=== PATIENT | male | born 1930 | race African-American/Black ===

== ENCOUNTER → 2019-11-01 | Outpatient (CLI) | payer MEDICARE ==
[2016-01-03 16:30] VITALS: BP 149/71
[~2019-11-01] MED LIST: ACET500T68 PO; AMIO200T4 PO; ASPI-482 PO; ATOR20TA58 PO; BRIM5DRO3 EACHEYE; CARV25TA PO; DILT180C29 PO; DOXA4TAB2 PO; ESOM40CA PO; FESO4TAB PO; FURO-68 PO; HYDR-2145 PO; LATA2.5D3 EACHEYE; LOSA100T14 PO; NITR0.4T22 SL; POTA20TA12 PO; TIMO5DRO26 OP
[2019-11-01 09:05] LABS: BASO # 0.1 x10^3/uL (0.0-0.2); BASO % 1 % (0-3); EOS # 0.2 x10^3/uL (0.0-0.7); EOS % 3 % (0-3); HEMATOCRIT 34.4 % (39.0-53.0); HEMOGLOBIN 11.5 g/dL (13.0-17.5); LYMPH # 1.4 x10^3/uL (1.0-4.8); LYMPH % 23 % (24-48); MEAN CORPUSCULAR HEMOGLOBIN 32 pg (25-35); MEAN CORPUSCULAR HGB CONC 34 g/dL (31-37); MEAN CORPUSCULAR VOLUME 94 fL (79-100); MONO # 0.6 x10^3/uL (0.0-1.1); MONO % 11 % (0-9); NEUT # 3.6 x10^3/uL (1.8-7.7); NEUT % 62 % (31-73); PLATELET COUNT 154 x10^3/uL (140-400); RED BLOOD COUNT 3.65 x10^6/uL (4.30-5.70); RED CELL DISTRIBUTION WIDTH 14.9 % (11.5-14.5); WHITE BLOOD COUNT 5.9 x10^3/uL (4.0-11.0)
[2019-11-01 09:23] LABS: ALBUMIN 2.9 g/dL (3.4-5.0); ALBUMIN/GLOBULIN RATIO 0.9 (1.0-1.7); CALCIUM 8.7 mg/dL (8.5-10.1); CREATININE 1.8 mg/dL (0.7-1.3); GFR 43.4; MAGNESIUM 2.4 mg/dL (1.8-2.4); PHOSPHORUS 3.6 mg/dL (2.6-4.7); POTASSIUM 4.3 mmol/L (3.5-5.1); TOTAL BILIRUBIN 0.4 mg/dL (0.2-1.0)
[2019-11-01 09:26] LABS: CHOLESTEROL/HDL RATIO 2.3
== END | disposition home or self-care (01) ==
LOC: SPEC 08:54
PROVIDERS: ATTEND Internal Medicine
DX: F25.1 Schizoaffective disorder, depressive type (principal); E78.5 Hyperlipidemia, unspecified
CPT/HCPCS: 36415; 80053; 80061; 83735; 83880; 84100; 85025

== ENCOUNTER 2021-05-25 21:48 | Inpatient (IN) | payer MEDICARE ==
[~2021-05-25] VITALS: Ht 165.1 cm; Wt 74.5 kg
[~2021-05-25 21:48] MED LIST changes: -AMIO200T4 PO; +AMIO200T53 PO
[2021-05-25 22:00] VITALS: BP 100/61
[2021-05-26] MEDS ORDERED: SPIR25TA5 PO (01:14)
[2021-05-26] MEDS ORDERED: APIX2.5T PO (01:14)
[2021-05-26] MEDS ORDERED: PANT40TA77 PO (01:14)
[2021-05-26] MEDS ORDERED: HYDR-2868 PO (01:14)
[2021-05-26] MEDS ORDERED: LEVE750T23 PO (01:14)
[2021-05-26 03:00] VITALS: BP 115/49
[2021-05-26 07:00] VITALS: BP 127/53
--- NOTE | 2021-05-26 08:03 | PDOC1 ---
History and Physical Date of Service: DOS: DATE: 05/26/21 TIME: 08:02 Chief Complaint: Chief Complain: Generalized weakness History of Present Illness: HPI: Most of the history was obtained from discussion with the due to the patient's limited history because of dementia: 89-year-old male with past medical history of atrial fibrillation, hypertension, GERD, AICD placement, CHF, aortic valve stenosis, CAD, osteoarthritis, anemia who was brought in from [facility] due to worsening generalized weakness. reports that the patient has not been seen by For a long time and she states she cannot take care of him anymore. Most of the events that led up to this point actually started around November 2020 where patient had to remain isolated at home and the was the only one taking care of him. He did have a fall episode where he was required to go to for evaluation. He was subsequently d ischarged from to [facility] for rehab and then he was sent home afterwards. Because the was not able to take care of him, she was able to use his VA benefits to send him to [facility]. According to the , she states that they did not do much rehab with him and the patient was quarantined for 2 weeks and no room without much interaction. She is quite upset about this and her respite care days ran out and she had to take him home on May 15. presents the patient to [facility] in hopes to have psychotherapist social worker find placement for the patient to help the for taking care of him. According to the , before November patient was able to ambulate with a walker on his own and go to the kitchen and grab his own self some food and then sit back down. Other than that the patient is unable to make phone calls or do accounting or cook for himself or clean himself. Upon my interview with the patient, patient still thinks he is at [facility] but he is pleasantly confused and is able to answer appropriately questions for immediate basic needs. Past Medical/Surgical History: PMH/PSH: PMHx: atrial fibrillation, hypertension, GERD, AICD placement, CHF, aortic valve stenosis, CAD, osteoarthritis, anemia Allergies: Allergies: Coded Allergies: oxycodone (Verified Allergy, Intermediate, 06/16/15) Family History: Family History: Reviewed with no relevant findings Social History: Social History: No alcohol, drug or tobacco abuse Current Medications: Current Medications Active Scripts Active Reported Spironolactone 25 Mg Tablet 25 Mg PO DAILY Pantoprazole Sodium (Pantoprazole Sodium) 40 Mg Tablet.dr 40 Mg PO DAILYAC Levetiracetam 750 Mg Tab.er.24h 750 Mg PO DAILY Hydralazine Hcl 25 Mg Tablet 25 Mg PO DAILY Eliquis (Apixaban) 2.5 Mg Tablet 2.5 Mg PO HS Diltiazem 24HR Cd (Diltiazem Hcl) 180 Mg Cap.er.24h 180 Mg PO DAILY Losartan Potassium 100 Mg Tablet 100 Mg PO DAILY Betimol (Timolol) 5 Ml Drops 5 Ml OP BID LAST DOSE: 09/02/15 AM NEXT DOSE: 09/02/15 PM Potassium Chloride 20 Meq Tab.er.prt 2 Tab PO DAILYWBKFT LAST DOSE: 09/02/15 BREAKFAST NEXT DOSE: 09/03/15 BREAKFAST NITROGLYCERIN SubLingual (Nitroglycerin) 0.4 Mg Tab.subl 1 Tab SL UD Latanoprost 2.5 Ml Drops 1 Drop EACHEYE QHS LAST DOSE: 09/01/15 BEDTIME NEXT DOSE: 09/02/15 BEDTIME Lasix (Furosemide) 40 Mg Tablet 1 Tab PO DAILY LAST DOSE: 09/02/15 AM NEXT DOSE: 09/03/15 AM Toviaz (Fesoterodine Fumarate) 4 Mg Tab.er.24h 1 Tab PO DAILY NEXT DOSE: 09/03/15 AM Nexium Capsule (Esomeprazole Magnesium) 40 Mg Capsule.dr 1 Cap PO DAILY LAST DOSE: 09/02/15 AM NEXT DOSE: 09/03/15 AM Cardura (Doxazosin Mesylate) 4 Mg Tablet 1 Tab PO HS LAST DOSE: 09/01/15 BEDTIME NEXT DOSE: 09/02/15 BEDTIME Coreg (Carvedilol) 25 Mg Tablet 1 Tab PO BID LAST DOSE: 09/02/15 AM NEXT DOSE: 09/02/15 PM Alphagan P (Brimonidine Tartrate) 5 Ml Drops 1 Drop EACHEYE BID LAST DOSE: 09/02/15 AM NEXT DOSE: 09/02/15 PM Atorvastatin Calcium 20 Mg Tablet 20 Mg PO HS LAST DOSE: 09/01/15 BEDTIME NEXT DOSE: 09/02/15 BEDTIME Aspir 81 (Aspirin) 81 Mg Tablet. 1 Tab PO DAILY LAST DOSE: 09/02/15 AM NEXT DOSE: 09/03/15 AM Amiodarone Hcl 200 Mg Tablet 100 Tab PO DAILY LAST DOSE: 09/02/15 AM NEXT DOSE: 09/03/15 AM Acetaminophen 500 Mg Tablet 2 Tab PO BID LAST DOSE: 09/02/15 AM NEXT DOSE: 09/02/15 PM ROS: Review of Systems Review of System REVIEW OF SYSTEMS: GENERAL: Denies weakness SKIN: No bruising, hair changes or rashes. EYES: No blurred, double or loss of vision. NOSE AND THROAT: No history of nosebleeds, hoarseness or sore throat. HEART: No history of palpitations, chest pain or shortness of breath on exertion. LUNGS: Denies cough, hemoptysis, wheezing or shortness of breath. GASTROINTESTINAL: Denies changes in appetite, nausea, vomiting, diarrhea or constipation. GENITOURINARY: No history of frequency, urgency, hesitancy or nocturia. NEUROLOGIC: Denies history of numbness, tingling, or tremor. PSYCHIATRIC: No history of panic, anxiety or depression. ENDOCRINE: No history of heat or cold intolerance, polyuria or polydipsia. EXTREMITIES: Denies joint pain, pain on walking or stiffness. Physical Exam: Vital Signs: Vital Signs Date Time Temp Pulse Resp B/P (MAP) Pulse Ox O2 Delivery O2 Flow Rate FiO2 05/26/21 03:00 97.8 70 16 115/49 (71) 98 97.8 Physcial Exam: General: Well developed, well nourished, no acute distress, well appearing HEENT: Pupils equally round and reactive to light, EOMI, no discharge, normal conjunctiva Neck: Supple, no nuchal rigidity, no JVD, trachea midline, no tenderness Cardiac: RRR, no murmurs, no gallops, no rubs Chest/Lungs: CTAB, no wheeze, no rhonchi, no crackles Abdomen: soft, non-distended, no guarding, no peritoneal signs, non-tender Back: Sacral decubitus ulcer Extremities: no edema, pulses intact, non-tender,capillary refill <3 sec bilateral upper and lower extremities, bilateral heel ulcers. Neuro: Alert and oriented x 4, no focal deficits, normal speech Labs: Labs: Laboratory Tests Test 05/26/21 07:39 Glucose (Fingerstick) 100 mg/dL (70-99) Laboratory Tests Test 05/26/21 07:39 Glucose (Fingerstick) 100 mg/dL (70-99) Images: Images No recent images to review Assessment/Plan Assessment/Plan Generalized weakness Sacral decubitus ulcers Bilateral heel ulcers Caregiver burden Anemia of chronic disease Severe protein malnutrition Dementia History of atrial fibrillation History of hypertension History of CHF History of CAD History of osteoarthritis History of seizure activity Admit to hospitalist service for further management Wound care consult for ulcers Resume home cardiac medications PT OT Orthostatic vital signs Eliquis for DVT prophylaxis Protonix GI prophylaxis ADA diet CODE STATUS full Discussed with RN and SW Disposition inpatient management as above DPOA: In addition to my E/M visit, advance care planning done with A total time of 20 minutes was spent from 10:00 to 1020 face to face in discussion with the patient and family regarding their goals of care, CODE STATUS. Justifications for Admission Other Justification ACACIA MORA MD May 26, 2021 08:03
[2021-05-26 11:00] VITALS: BP 122/46
--- NOTE | 2021-05-26 11:09 | NUR ---
SW following. Discussed with RN, pt from home with , room air, ada diet. Pt uses a wheelchair. PT/OT ordered. Wound care consulted. RN advised no SW needs at this time. SW will continue to follow.
[2021-05-26] MEDS ORDERED: ZOLPIDEM 5 MG TABLET. PO PRN (12:30)
[2021-05-26] MEDS ORDERED: ONDANSETRON PF 4 MG/2 ML VIAL. IVP PRN (12:30)
[2021-05-26] MEDS ORDERED: oxyCODONE/APAP 5/325 1 TAB TABLET PO PRN (12:30)
[2021-05-26] MEDS ORDERED: PROCHLORPERAZINE 10 MG/2 ML VIAL. IV PRN (12:30)
[2021-05-26] MEDS ORDERED: DEXTROSE 50% 25 GM / 50ML DISP.SYRIN. IV PRN (12:30)
[2021-05-26] MEDS ORDERED: DOCUSATE SODIUM 100 MG CAPSULE. PO PRN (12:30)
[2021-05-26] MEDS ORDERED: SENNOSIDES 8.6 MG TABLET PO PRN (12:30)
[2021-05-26 13:39] LABS: BASO # 0.1 x10^3/uL (0.0-0.2); BASO % 1 % (0-3); EOS # 0.1 x10^3/uL (0.0-0.7); EOS % 1 % (0-3); HEMATOCRIT 26.5 % (39.0-53.0); HEMOGLOBIN 8.7 g/dL (13.0-17.5); LYMPH # 1.4 x10^3/uL (1.0-4.8); LYMPH % 16 % (24-48); MEAN CORPUSCULAR HEMOGLOBIN 29 pg (25-35); MEAN CORPUSCULAR HGB CONC 33 g/dL (31-37); MEAN CORPUSCULAR VOLUME 89 fL (79-100); MONO # 1.1 x10^3/uL (0.0-1.1); MONO % 13 % (0-9); NEUT # 5.8 x10^3/uL (1.8-7.7); NEUT % 69 % (31-73); PLATELET COUNT 253 x10^3/uL (140-400); RED BLOOD COUNT 2.99 x10^6/uL (4.30-5.70); RED CELL DISTRIBUTION WIDTH 18.9 % (11.5-14.5); WHITE BLOOD COUNT 8.4 x10^3/uL (4.0-11.0)
[2021-05-26 14:05] LABS: ALBUMIN 1.7 g/dL (3.4-5.0); ALBUMIN/GLOBULIN RATIO 0.4 (1.0-1.7); CALCIUM 8.6 mg/dL (8.5-10.1); CREATININE 1.1 mg/dL (0.7-1.3); GFR 76.4; MAGNESIUM 2.2 mg/dL (1.8-2.4); POTASSIUM 4.2 mmol/L (3.5-5.1); TOTAL BILIRUBIN 0.3 mg/dL (0.2-1.0); TOTAL PROTEIN 6.5 g/dL (6.4-8.2)
[2021-05-26] MEDS: AMIODARONE HCL 200 MG TABLET. PO SCH (14:44)
[2021-05-26] MEDS: ASPIRIN ENTERIC COATED 81 MG TABLET.DR. PO SCH (14:44)
[2021-05-26] MEDS: ACETAMINOPHEN 325 MG TABLET. PO PRN (14:45)
[2021-05-26 15:00] VITALS: BP 129/52
--- NOTE | 2021-05-26 15:25 | NUR ---
Wound/Ostomy Care Wound Type/Assessment: Wound care consult for multiple wound to bilateral feet and sacrum. pt has DTI with open area to sacrum, DFU's to left plantar foot, Left heel and right lateral ankle. Right lateral ankle is very close to bone and left heel is crusty unstable eschar with slough. Will consult Ana Nieto APRN for bedside debridement. Treatment Recommendations/Plan: Sacrum- xeroform and foam every 3 days and PRN Left plantar foot- skin prep and foam change 2x weekly Right lateral ankle- iodoflex and foam, change very 3 days. Left heel- apply medihoney, xeroform and foam. Change every 3 days and PRN Education provided: Pt educated on PU prevention and WC POC. Offloading surface/device: pt stated he does not like heel medix boots but he understands they are to help him prevent further pressure to wound on feet. Pt turned to left side with wedge and heel floated. Will order heel medix boots and P500 bed. Recommended Referrals/Tests: patient may need bilateral arterial doppler, recommend consult for Ana GILLIS APRN Discharge Recommendations for dressings: see above Addendum: 05/26/21 at 1630 by STACEY ALMANZAR RN [employer] Right: 0.82, left: 0.84
[2021-05-26] MEDS: PANTOPRAZOLE 40 MG TABLET.DR. PO SCH ×2 (16:30→18:01)
[2021-05-26] MEDS: INSULIN LISPRO 300 UNITS/3 ML VIAL. SQ SCH (17:00)
[2021-05-26] MEDS: CARVEDILOL 12.5 MG TABLET. PO SCH (18:02)
[2021-05-26 19:00] VITALS: BP 124/58
[2021-05-26] MEDS: LATANOPROST 0.005% OPHTH SOLUTION 2.5ML BOTTLE. OU SCH (20:36)
[2021-05-26] MEDS: ATORVASTATIN CALCIUM 20 MG TABLET PO SCH (20:37)
[2021-05-26] MEDS: APIXABAN 2.5 MG TABLET. PO SCH (20:37)
[2021-05-26] MEDS: TIMOLOL 0.5% OPHTH SOLUTION 5ML BOTTLE. OD SCH (20:37)
[2021-05-26] MEDS: levETIRAcetam 500 MG/5 ML ORAL SOLUTION. PO SCH (20:37)
[2021-05-26] MEDS: BRIMONIDINE 0.2% OPHTH SOLUTION 5ML BOTTLE. OU SCH (20:37)
[2021-05-26 23:00] VITALS: BP 108/44
--- NOTE | 2021-05-26 23:30 | RAD ---
Bilateral lower extremity arterial Doppler dated 05/26/2021. No comparison available. CLINICAL INDICATION: Nonhealing wounds bilateral foot. FINDINGS: Grayscale, color-flow and spectral waveform analysis was performed. Diffuse luminal irregularity bila teral consistent with atherosclerotic plaquing. On the right, there is biphasic flow within the common femoral artery with systolic velocity of 130 c c and/S. There is also high velocity flow within the profundus femoris on the right measuring 319 cm/ S. Flow within the superficial femoral artery is monophasic throughout and is of somewhat low velocit y. There is echogenic plaque throughout. There is also low velocity monophasic flow within the poplit eal artery and arteries of right calf. On the left, there is biphasic flow within the common femoral artery with velocity of 113 cm/S. There is mild elevated velocity the profundus femoris measuring 175 cm/S. Monophasic flow within the super ficial femoral artery with diminished velocities. There is also monophasic flow within the popliteal artery and arteries of left calf. IMPRESSION: 1. Monophasic flow bilaterally which likely related to diffuse disease and/or inflow disease at the d istal aorta or aortic bifurcation. 2. There is focal velocity elevation of the bilateral profundus femoris, right greater than left sugg esting moderate grade narrowing. 3. Otherwise no focal stenosis visualized. If indicated, CTA could better evaluate. Electronically signed by: Davey Del Angel MD (05/26/2021 11:27 PM) [facility]
[2021-05-27 03:00] VITALS: BP 116/56
[2021-05-27 07:00] VITALS: BP 124/56
[2021-05-27 07:25] LABS: BASO % 1 % (0-3); EOS # 0.1 x10^3/uL (0.0-0.7); EOS % 1 % (0-3); HEMATOCRIT 27.7 % (39.0-53.0); HEMOGLOBIN 8.8 g/dL (13.0-17.5); LYMPH # 1.1 x10^3/uL (1.0-4.8); LYMPH % 15 % (24-48); MEAN CORPUSCULAR HEMOGLOBIN 29 pg (25-35); MEAN CORPUSCULAR HGB CONC 32 g/dL (31-37); MEAN CORPUSCULAR VOLUME 90 fL (79-100); MONO # 0.9 x10^3/uL (0.0-1.1); MONO % 13 % (0-9); NEUT # 5.1 x10^3/uL (1.8-7.7); NEUT % 71 % (31-73); PLATELET COUNT 245 x10^3/uL (140-400); RED BLOOD COUNT 3.08 x10^6/uL (4.30-5.70); RED CELL DISTRIBUTION WIDTH 18.9 % (11.5-14.5); WHITE BLOOD COUNT 7.3 x10^3/uL (4.0-11.0)
[2021-05-27] MEDS: INSULIN LISPRO 300 UNITS/3 ML VIAL. SQ SCH ×3 (08:00→17:00)
[2021-05-27 08:35] LABS: CALCIUM 8.5 mg/dL (8.5-10.1); GFR 85.3; MAGNESIUM 2.2 mg/dL (1.8-2.4); PHOSPHORUS 2.7 mg/dL (2.6-4.7)
[2021-05-27] MEDS: TIMOLOL 0.5% OPHTH SOLUTION 5ML BOTTLE. OD SCH ×2 (09:00→21:21)
[2021-05-27] MEDS: BRIMONIDINE 0.2% OPHTH SOLUTION 5ML BOTTLE. OU SCH ×2 (09:00→21:22)
--- NOTE | 2021-05-27 09:15 | PDOC ---
[employer] PROGRESS NOTE Date of Service DOS: DATE: 05/27/21 TIME: 09:09 Chief Complaint Chief Complaint Assessment/Plan Generalized weakness Sacral decubitus ulcers Bilateral heel ulcers Caregiver burden Anemia of chronic disease Severe protein malnutrition Dementia History of atrial fibrillation History of hypertension History of CHF History of CAD History of osteoarthritis History of seizure activity Continue heel offloading and heel boots Wound care consult for ulcers Resume home cardiac medications PT OT Orthostatic vital signs Eliquis for DVT prophylaxis Protonix GI prophylaxis ADA diet CODE STATUS full Discussed with RN and SW Disposition inpatient management as above DPOA: History of Present Illness History of Present Illness 89-year-old male with past medical history of atrial fibrillation, hypertension, GERD, AICD placement, CHF, aortic valve stenosis, CAD, osteoarthritis, anemia wh o was brought in from [facility] due to worsening generalized weakness. reports that the patient has not been seen by For a long time and she states she cannot take care of him anymore. Most of the events that led up to this point actually started around November 2020 where patient had to remain isolated at home and the was the only one taking care of him. He did have a fall episode where he was required to go to for evaluation. He was subsequently discharged from to [facility] for rehab and then he was sent home afterwards. Because the was not able to take care of him, she was able to use his VA benefits to send him to [facility]. According to the , she states that they did not do much rehab with him and the patient was quarantined for 2 weeks and no room without much interaction. She is quite upset about this and her respite care days ran out and she had to take him home on May 15. presents the patient to [facility] in hopes to have social media marketer find placement for the patient to help the for taking care of him. According to the , before November patient was able to ambulate with a walker on his own and go to the kitchen and grab his own self some food and then sit back down. Other than that the patient is unable to make phone calls or do accounting or cook for himself or clean himself. Upon my interview with the patient, patient still thinks he is at [facility] but he is pleasantly confused and is able to answer appropriately questions for immediate basic needs. 05/27/2021 No acute events overnight. Afebrile. Patient seen and examined bedside. No complaints at this time. Duplex ultrasound of the lower extremities completed showing monophasic flow and possibly some narrowing. Will defer to wound care for consulting vascular surgery at this time. Patient's chart, labs, images were reviewed and discussed with RN Vitals/I&O Vitals/I&O: Vital Signs Date Time Temp Pulse Resp B/P (MAP) Pulse Ox O2 Delivery O2 Flow Rate FiO2 05/27/21 07:00 97.9 70 18 124/56 (78) 98 Room Air 97.9 I & O 05/26/21 05/26/21 05/27/21 15:00 23:00 07:00 Intake Total 200 ml Balance 200 ml Physical Exam General: Alert, Cooperative Heart: Regular rate Lungs: Clear Abdomen: No tenderness Extremities: No edema, Other (Bilateral heel and ankle ulcerations. Heel boots in place.) Labs Labs: Laboratory Tests Test 05/26/21 11:09 05/26/21 13:05 05/26/21 13:15 05/26/21 16:35 Glucose (Fingerstick) 96 mg/dL (70-99) 115 mg/dL (70-99) Sodium Level 139 mmol/L (136-145) Potassium Level 4.2 mmol/L (3.5-5.1) Chloride Level 103 mmol/L (98-107) Carbon Dioxide Level 31 mmol/L (21-32) Anion Gap 5 (6-14) Blood Urea Nitrogen 43 mg/dL (8-26) Creatinine 1.1 mg/dL (0.7-1.3) Estimated GFR (Cockcroft-Gault) 76.4 BUN/Creatinine Ratio 39 (6-20) Glucose Level 93 mg/dL (70-99) Calcium Level 8.6 mg/dL (8.5-10.1) Phosphorus Level 2.0 mg/dL (2.6-4.7) Magnesium Level 2.2 mg/dL (1.8-2.4) Total Bilirubin 0.3 mg/dL (0.2-1.0) Aspartate Amino Transf (AST/SGOT) 28 U/L (15-37) Alanine Aminotransferase (ALT/SGPT) 29 U/L (16-63) Alkaline Phosphatase 73 U/L (46-116) Troponin I Quantitative 0.030 ng/mL (0.000-0.055) Total Protein 6.5 g/dL (6.4-8.2) Albumin 1.7 g/dL (3.4-5.0) Albumin/Globulin Ratio 0.4 (1.0-1.7) Vitamin B12 Level 624 pg/mL (247-911) White Blood Count 8.4 x10^3/uL (4.0-11.0) Red Blood Count 2.99 x10^6/uL (4.30-5.70) Hemoglobin 8.7 g/dL (13.0-17.5) Hematocrit 26.5 % (39.0-53.0) Mean Corpuscular Volume 89 fL (79-100) Mean Corpuscular Hemoglobin 29 pg (25-35) Mean Corpuscular Hemoglobin Concent 33 g/dL (31-37) Red Cell Distribution Width 18.9 % (11.5-14.5) Platelet Count 253 x10^3/uL (140-400) Neutrophils (%) (Auto) 69 % (31-73) Lymphocytes (%) (Auto) 16 % (24-48) Monocytes (%) (Auto) 13 % (0-9) Eosinophils (%) (Auto) 1 % (0-3) Basophils (%) (Auto) 1 % (0-3) Neutrophils # (Auto) 5.8 x10^3/uL (1.8-7.7) Lymphocytes # (Auto) 1.4 x10^3/uL (1.0-4.8) Monocytes # (Auto) 1.1 x10^3/uL (0.0-1.1) Eosinophils # (Auto) 0.1 x10^3/uL (0.0-0.7) Basophils # (Auto) 0.1 x10^3/uL (0.0-0.2) Test 05/26/21 20:28 05/27/21 06:20 05/27/21 07:38 Glucose (Fingerstick) 90 mg/dL (70-99) 88 mg/dL (70-99) White Blood Count 7.3 x10^3/uL (4.0-11.0) Red Blood Count 3.08 x10^6/uL (4.30-5.70) Hemoglobin 8.8 g/dL (13.0-17.5) Hematocrit 27.7 % (39.0-53.0) Mean Corpuscular Volume 90 fL (79-100) Mean Corpuscular Hemoglobin 29 pg (25-35) Mean Corpuscular Hemoglobin Concent 32 g/dL (31-37) Red Cell Distribution Width 18.9 % (11.5-14.5) Platelet Count 245 x10^3/uL (140-400) Neutrophils (%) (Auto) 71 % (31-73) Lymphocytes (%) (Auto) 15 % (24-48) Monocytes (%) (Auto) 13 % (0-9) Eosinophils (%) (Auto) 1 % (0-3) Basophils (%) (Auto) 1 % (0-3) Neutrophils # (Auto) 5.1 x10^3/uL (1.8-7.7) Lymphocytes # (Auto) 1.1 x10^3/uL (1.0-4.8) Monocytes # (Auto) 0.9 x10^3/uL (0.0-1.1) Eosinophils # (Auto) 0.1 x10^3/uL (0.0-0.7) Basophils # (Auto) 0.0 x10^3/uL (0.0-0.2) Sodium Level 139 mmol/L (136-145) Potassium Level 4.0 mmol/L (3.5-5.1) Chloride Level 104 mmol/L (98-107) Carbon Dioxide Level 29 mmol/L (21-32) Anion Gap 6 (6-14) Blood Urea Nitrogen 36 mg/dL (8-26) Creatinine 1.0 mg/dL (0.7-1.3) Estimated GFR (Cockcroft-Gault) 85.3 Glucose Level 83 mg/dL (70-99) Calcium Level 8.5 mg/dL (8.5-10.1) Phosphorus Level 2.7 mg/dL (2.6-4.7) Magnesium Level 2.2 mg/dL (1.8-2.4) Comment Review of Relevant I have reviewed the following items shelby (where applicable) has been applied. Medications: Current Medications Medications (Trade) Dose Ordered Sig/Shital Route PRN Reason Start Time Stop Time Status Last Admin Dose Admin Amiodarone HCl (Cordarone) 200 mg DAILY PO 05/26/21 13:00 05/26/21 14:44 Apixaban (Eliquis) 2.5 mg BID PO 05/26/21 21:00 05/26/21 20:37 Aspirin (Ecotrin) 81 mg DAILY PO 05/26/21 13:00 05/26/21 14:44 Atorvastatin Calcium (Lipitor) 20 mg HS PO 05/26/21 21:00 05/26/21 20:37 Latanoprost (Xalatan) 1 drop QHS OU 05/26/21 21:00 05/26/21 20:36 Pantoprazole Sodium (Protonix) 40 mg DAILYAC PO 05/26/21 16:30 05/26/21 16:30 Brimonidine Tartrate (Alphagan) 1 drop BID OU 05/26/21 21:00 05/26/21 20:37 Carvedilol (Coreg) 25 mg BIDWMEALS PO 05/26/21 17:00 05/26/21 18:02 Levetiracetam (Keppra Oral Soln) 375 mg BID PO 05/26/21 21:00 05/26/21 20:37 Timolol Maleate (Timoptic 0.5% Oph) 1 drop BID OD 05/26/21 21:00 05/26/21 20:37 Acetaminophen (Tylenol) 650 mg PRN Q4HRS PRN PO TEMP OVER 100.4F OR MILD PAIN 05/26/21 12:30 05/26/21 14:45 Justifications for Admission Other Justification Debilitation adn generalized weakness ACACIA MORA MD May 27, 2021 09:15
[2021-05-27] MEDS: PANTOPRAZOLE 40 MG TABLET.DR. PO SCH (09:30)
[2021-05-27] MEDS: CARVEDILOL 12.5 MG TABLET. PO SCH ×2 (09:30→17:18)
[2021-05-27] MEDS: ASPIRIN ENTERIC COATED 81 MG TABLET.DR. PO SCH (09:30)
[2021-05-27] MEDS: AMIODARONE HCL 200 MG TABLET. PO SCH (09:31)
[2021-05-27] MEDS: APIXABAN 2.5 MG TABLET. PO SCH ×2 (09:31→21:22)
[2021-05-27] MEDS: levETIRAcetam 500 MG/5 ML ORAL SOLUTION. PO SCH ×2 (09:31→21:22)
[2021-05-27 11:13] LABS: % EOS 1 % (0-5); % LYMPHS 15 % (24-48); % MONOS 13 % (0-10); % SEGS 71 % (35-66); PLT ESTIMATE ADEQUATE (ADEQUATE)
[2021-05-27 11:14] LABS: ANISOCYTOSIS SLIGHT
[2021-05-27 11:40] VITALS: BP 115/54
[2021-05-27 15:00] VITALS: BP 121/47
--- NOTE | 2021-05-27 15:59 | PDOC2 ---
CONSULT Date of Service Date of Service DATE: 05/27/21 TIME: 15:47 Reason for Consult Reason for Consult: Foot wounds Referring Physician Referring Physician: Dr. Hilliard Source Source: Patient History of Present Illness Reason for Visit: Pleasant 89-year-old male with past medical history of atrial fibrillation, hypertension, GERD, AICD placement, CHF, aortic valve stenosis, CAD, osteoarthritis, anemia. He is here with increased generalized weakness. Per chart review he has mild dementia, he was able to give me some history and answer questions with me today. We were asked to evaluate him regarding his bilateral foot wounds. He denies any pain to his feet or legs. He has not been ambulatory in quite some time, he cannot remember the last time he walked. He reports he has kidney disease however has normal creatinine. He is unsure how long his foot wounds have been present. He takes Eliquis and aspirin. He does get cardiac care from , I did review his chart without finding any prior vascular encounters or imaging. He has had an arterial duplex here that showed monophasic flow diffusely. Past Medical History Cardiovascular: CAD, CHF, HTN Pulmonary: No pertinent hx, COPD Musculoskeletal: low back pain Rheumatologic: No pertinent hx Past Surgical History Past Surgical History: Pacemaker, Other Family History Family History: Asthma, Heart Disease Social History ALCOHOL: none Drugs: None Current Medications Current Medications Current Medications Amiodarone HCl (Cordarone) 200 mg DAILY PO Last administered on 05/27/21at 09:31; Start 05/26/21 at 13:00 Apixaban (Eliquis) 2.5 mg BID PO Last administered on 05/27/21at 09:31; Start 05/26/21 at 21:00 Aspirin (Ecotrin) 81 mg DAILY PO Last administered on 05/27/21 09:30; Start 05/26/21 at 13:00 Atorvastatin Calcium (Lipitor) 20 mg HS PO Last administered on 05/26/21at 20:37; Start 05/26/21 at 21:00 Latanoprost (Xalatan) 1 drop QHS OU Last administered on 05/26/21at 20:36; Start 05/26/21 at 21:00 Pantoprazole Sodium (Protonix) 40 mg DAILYAC PO Last administered on 05/27/21at 09:30; Start 05/26/21 at 16:30 Brimonidine Tartrate (Alphagan) 1 drop BID OU Last administered on 05/26/21at 20:37; Start 05/26/21 at 21:00 Carvedilol (Coreg) 25 mg BIDWMEALS PO Last administered on 05/27/21at 09:30; Start 05/26/21 at 17:00 Levetiracetam (Keppra Oral Soln) 375 mg BID PO Last administered on 05/27/21at 09:31; Start 05/26/21 at 21:00 Timolol Maleate (Timoptic 0.5% Ophth) 1 drop BID OD Last administered on at 20:37; Start 05/26/21 at 21:00 Sennosides (Senna) 17.2 mg PRN BID PRN PO CONSTIPATION; Start 05/26/21 at 12:30 Docusate Sodium (Colace) 100 mg PRN DAILY PRN PO HARD STOOLS; Start 05/26/21 at 12:30 Ondansetron HCl (Zofran) 4 mg PRN Q6HRS PRN IVP NAUSEA/VOMITING; Start 05/26/21 at 12:30 Insulin Human Lispro (HumaLOG) 0-7 UNITS TIDWMEALS SQ ; Start 05/26/21 at 17:00 Dextrose (Dextrose 50%-Water Syringe) 12.5 gm PRN Q15MIN PRN IV SEE COMMENTS; Start 05/26/21 at 12:30 Acetaminophen (Tylenol) 650 mg PRN Q4HRS PRN PO TEMP OVER 100.4F OR MILD PAIN Last administered on 05/26/21at 14:45; Start 05/26/21 at 12:30 Lorazepam (Ativan) 0.5 mg PRN Q6HRS PRN PO ANXIETY / AGITATION; Start 05/26/21 at 12:30 Lorazepam (Ativan Inj) 0.25 mg PRN Q4HRS PRN IV ANXIETY / AGITATION; Start 05/26/21 at 12:30 Oxycodone/ Acetaminophen (Percocet 5/325) 1 tab PRN Q4HRS PRN PO MILD PAIN, 1ST CHOICE; Start 05/26/21 at 12:30; Stop 05/26/21 at 12:41; Status DC Prochlorperazine Edisylate (Compazine) 10 mg PRN Q6HRS PRN IV NAUSEA/VOMITING- 2nd choice; Start 05/26/21 at 12:30 Zolpidem Tartrate (Ambien) 2.5 mg PRN QHS PRN PO INSOMNIA; Start 05/26/21 at 12:30 Active Scripts Active Reported Spironolactone 25 Mg Tablet 25 Mg PO DAILY Pantoprazole Sodium (Pantoprazole Sodium) 40 Mg Tablet.dr 40 Mg PO DAILYAC Levetiracetam 750 Mg Tab.er.24h 750 Mg PO DAILY Hydralazine Hcl 25 Mg Tablet 25 Mg PO DAILY Eliquis (Apixaban) 2.5 Mg Tablet 2.5 Mg PO BID Diltiazem 24HR Cd (Diltiazem Hcl) 180 Mg Cap.er.24h 180 Mg PO DAILY Losartan Potassium 100 Mg Tablet 100 Mg PO DAILY Betimol (Timolol) 5 Ml Drops 5 Ml OP BID LAST DOSE: 09/02/15 AM NEXT DOSE: 09/02/15 PM Potassium Chloride 20 Meq Tab.er.prt 2 Tab PO DAILYWBKFT LAST DOSE: 09/02/15 BREAKFAST NEXT DOSE: 09/03/15 BREAKFAST NITROGLYCERIN SubLingual (Nitroglycerin) 0.4 Mg Tab.subl 1 Tab SL UD Latanoprost 2.5 Ml Drops 1 Drop EACHEYE QHS LAST DOSE: 09/01/15 BEDTIME NEXT DOSE: 09/02/15 BEDTIME Lasix (Furosemide) 40 Mg Tablet 1 Tab PO DAILY LAST DOSE: 09/02/15 AM NEXT DOSE: 09/03/15 AM Toviaz (Fesoterodine Fumarate) 4 Mg Tab.er.24h 1 Tab PO DAILY NEXT DOSE: 09/03/15 AM Nexium Capsule (Esomeprazole Magnesium) 40 Mg Capsule.dr 1 Cap PO DAILY LAST DOSE: 09/02/15 AM NEXT DOSE: 09/03/15 AM Cardura (Doxazosin Mesylate) 4 Mg Tablet 1 Tab PO HS LAST DOSE: 09/01/15 BEDTIME NEXT DOSE: 09/02/15 BEDTIME Coreg (Carvedilol) 25 Mg Tablet 1 Tab PO BID LAST DOSE: 09/02/15 AM NEXT DOSE: 09/02/15 PM Alphagan P (Brimonidine Tartrate) 5 Ml Drops 1 Drop EACHEYE BID LAST DOSE: 09/02/15 AM NEXT DOSE: 09/02/15 PM Atorvastatin Calcium 20 Mg Tablet 20 Mg PO HS LAST DOSE: 09/01/15 BEDTIME NEXT DOSE: 09/02/15 BEDTIME Aspir 81 (Aspirin) 81 Mg Tablet.dr 1 Tab PO DAILY LAST DOSE: 09/02/15 AM NEXT DOSE: 09/03/15 AM Amiodarone Hcl 200 Mg Tablet 100 Tab PO DAILY LAST DOSE: 09/02/15 AM NEXT DOSE: 09/03/15 AM Acetaminophen 500 Mg Tablet 2 Tab PO BID LAST DOSE: 09/02/15 AM NEXT DOSE: 09/02/15 PM Allergies Allergies: Coded Allergies: oxycodone (Verified Allergy, Intermediate, 06/16/15) ROS General: No: Other (Fevers) Eyes: Yes Decreased vision Hematological and Lymphatic: No: Bleeding Problems, Blood Clots Respiratory: No: Shortness of breath Cardiovascular: No Chest Pain Gastrointestinal: No Nausea, No Vomiting, No Abdominal Pain Neurological: Yes Weakness Skin: Yes Skin Lesion Changes Physical Exam General: Alert, Cooperative, No acute distress Lungs: Normal air movement (Room air) Heart: Regular rate Abdomen: Soft, No tenderness Extremities: Other (Cannot appreciate pedal pulses, however left DP and PT are adequate via handheld Doppler, right pedal signals are monophasic. 1+ right femoral pulse, hard to feel, 2+ left femoral pulse) Skin: Other (His right lateral ankle has in ulcer overlying his malleolus which does not appear to probe to bone, wound edges are clean there is no purulent won inage or fluctuance or crepitus. His left foot has a moderate sized purple blister overlying the fifth met head without an open area, and a heel pressure wound and ulcer that does not have any drainage, fluctuance or crepitus. Is hard to determine the depth of the heel wound however cannot feel or probe to any bone.) Neuro: Normal speech Psych/Mental Status: Mental status NL, Mood NL Vitals VITALS Vital Signs Date Time Temp Pulse Resp B/P (MAP) Pulse Ox O2 Delivery O2 Flow Rate FiO2 05/27/21 11:40 98.5 70 18 115/54 (74) 97 Room Air 98.5 Labs Labs Laboratory Tests Test 05/26/21 07:39 05/26/21 11:09 05/26/21 13:05 05/26/21 13:15 Glucose (Fingerstick) 100 mg/dL (70-99) 96 mg/dL (70-99) Sodium Level 139 mmol/L (136-145) Potassium Level 4.2 mmol/L (3.5-5.1) Chloride Level 103 mmol/L (98-107) Carbon Dioxide Level 31 mmol/L (21-32) Anion Gap 5 (6-14) Blood Urea Nitrogen 43 mg/dL (8-26) Creatinine 1.1 mg/dL (0.7-1.3) Estimated GFR (Cockcroft-Gault) 76.4 BUN/Creatinine Ratio 39 (6-20) Glucose Level 93 mg/dL (70-99) Calcium Level 8.6 mg/dL (8.5-10.1) Phosphorus Level 2.0 mg/dL (2.6-4.7) Magnesium Level 2.2 mg/dL (1.8-2.4) Total Bilirubin 0.3 mg/dL (0.2-1.0) Aspartate Amino Transf (AST/SGOT) 28 U/L (15-37) Alanine Aminotransferase (ALT/SGPT) 29 U/L (16-63) Alkaline Phosphatase 73 U/L (46-116) Troponin I Quantitative 0.030 ng/mL (0.000-0.055) Total Protein 6.5 g/dL (6.4-8.2) Albumin 1.7 g/dL (3.4-5.0) Albumin/Globulin Ratio 0.4 (1.0-1.7) Vitamin B12 Level 624 pg/mL (247-911) White Blood Count 8.4 x10^3/uL (4.0-11.0) Red Blood Count 2.99 x10^6/uL (4.30-5.70) Hemoglobin 8.7 g/dL (13.0-17.5) Hematocrit 26.5 % (39.0-53.0) Mean Corpuscular Volume 89 fL (79-100) Mean Corpuscular Hemoglobin 29 pg (25-35) Mean Corpuscular Hemoglobin Concent 33 g/dL (31-37) Red Cell Distribution Width 18.9 % (11.5-14.5) Platelet Count 253 x10^3/uL (140-400) Neutrophils (%) (Auto) 69 % (31-73) Lymphocytes (%) (Auto) 16 % (24-48) Monocytes (%) (Auto) 13 % (0-9) Eosinophils (%) (Auto) 1 % (0-3) Basophils (%) (Auto) 1 % (0-3) Neutrophils # (Auto) 5.8 x10^3/uL (1.8-7.7) Lymphocytes # (Auto) 1.4 x10^3/uL (1.0-4.8) Monocytes # (Auto) 1.1 x10^3/uL (0.0-1.1) Eosinophils # (Auto) 0.1 x10^3/uL (0.0-0.7) Basophils # (Auto) 0.1 x10^3/uL (0.0-0.2) Test 05/26/21 16:35 05/26/21 20:28 05/27/21 06:20 05/27/21 07:38 Glucose (Fingerstick) 115 mg/dL (70-99) 90 mg/dL (70-99) 88 mg/dL (70-99) White Blood Count 7.3 x10^3/uL (4.0-11.0) Red Blood Count 3.08 x10^6/uL (4.30-5.70) Hemoglobin 8.8 g/dL (13.0-17.5) Hematocrit 27.7 % (39.0-53.0) Mean Corpuscular Volume 90 fL (79-100) Mean Corpuscular Hemoglobin 29 pg (25-35) Mean Corpuscular Hemoglobin Concent 32 g/dL (31-37) Red Cell Distribution Width 18.9 % (11.5-14.5) Platelet Count 245 x10^3/uL (140-400) Neutrophils (%) (Auto) 71 % (31-73) Lymphocytes (%) (Auto) 15 % (24-48) Monocytes (%) (Auto) 13 % (0-9) Eosinophils (%) (Auto) 1 % (0-3) Basophils (%) (Auto) 1 % (0-3) Neutrophils # (Auto) 5.1 x10^3/uL (1.8-7.7) Lymphocytes # (Auto) 1.1 x10^3/uL (1.0-4.8) Monocytes # (Auto) 0.9 x10^3/uL (0.0-1.1) Eosinophils # (Auto) 0.1 x10^3/uL (0.0-0.7) Basophils # (Auto) 0.0 x10^3/uL (0.0-0.2) Segmented Neutrophils % 71 % (35-66) Lymphocytes % 15 % (24-48) Monocytes % 13 % (0-10) Eosinophils % 1 % (0-5) Platelet Estimate Adequate (ADEQUATE) Large Platelets Few Anisocytosis Slight Sodium Level 139 mmol/L (136-145) Potassium Level 4.0 mmol/L (3.5-5.1) Chloride Level 104 mmol/L (98-107) Carbon Dioxide Level 29 mmol/L (21-32) Anion Gap 6 (6-14) Blood Urea Nitrogen 36 mg/dL (8-26) Creatinine 1.0 mg/dL (0.7-1.3) Estimated GFR (Cockcroft-Gault) 85.3 Glucose Level 83 mg/dL (70-99) Calcium Level 8.5 mg/dL (8.5-10.1) Phosphorus Level 2.7 mg/dL (2.6-4.7) Magnesium Level 2.2 mg/dL (1.8-2.4) Test 05/27/21 11:49 Glucose (Fingerstick) 82 mg/dL (70-99) Laboratory Tests Test 05/26/21 16:35 05/26/21 20:28 05/27/21 06:20 05/27/21 07:38 Glucose (Fingerstick) 115 mg/dL (70-99) 90 mg/dL (70-99) 88 mg/dL (70-99) White Blood Count 7.3 x10^3/uL (4.0-11.0) Red Blood Count 3.08 x10^6/uL (4.30-5.70) Hemoglobin 8.8 g/dL (13.0-17.5) Hematocrit 27.7 % (39.0-53.0) Mean Corpuscular Volume 90 fL (79-100) Mean Corpuscular Hemoglobin 29 pg (25-35) Mean Corpuscular Hemoglobin Concent 32 g/dL (31-37) Red Cell Distribution Width 18.9 % (11.5-14.5) Platelet Count 245 x10^3/uL (140-400) Neutrophils (%) (Auto) 71 % (31-73) Lymphocytes (%) (Auto) 15 % (24-48) Monocytes (%) (Auto) 13 % (0-9) Eosinophils (%) (Auto) 1 % (0-3) Basophils (%) (Auto) 1 % (0-3) Neutrophils # (Auto) 5.1 x10^3/uL (1.8-7.7) Lymphocytes # (Auto) 1.1 x10^3/uL (1.0-4.8) Monocytes # (Auto) 0.9 x10^3/uL (0.0-1.1) Eosinophils # (Auto) 0.1 x10^3/uL (0.0-0.7) Basophils # (Auto) 0.0 x10^3/uL (0.0-0.2) Segmented Neutrophils % 71 % (35-66) Lymphocytes % 15 % (24-48) Monocytes % 13 % (0-10) Eosinophils % 1 % (0-5) Platelet Estimate Adequate (ADEQUATE) Large Platelets Few Anisocytosis Slight Sodium Level 139 mmol/L (136-145) Potassium Level 4.0 mmol/L (3.5-5.1) Chloride Level 104 mmol/L (98-107) Carbon Dioxide Level 29 mmol/L (21-32) Anion Gap 6 (6-14) Blood Urea Nitrogen 36 mg/dL (8-26) Creatinine 1.0 mg/dL (0.7-1.3) Estimated GFR (Cockcroft-Gault) 85.3 Glucose Level 83 mg/dL (70-99) Calcium Level 8.5 mg/dL (8.5-10.1) Phosphorus Level 2.7 mg/dL (2.6-4.7) Magnesium Level 2.2 mg/dL (1.8-2.4) Test 05/27/21 11:49 Glucose (Fingerstick) 82 mg/dL (70-99) Images Images Arterial duplex reviewed Assessment/Plan Assessment/Plan Peripheral arterial disease Bilateral foot wounds Pleasant 89-year-old male with evidence of peripheral arterial disease via arterial duplex. He has bilateral foot wounds, left heel pressure injury and a right lateral malleolus pressure ulcer. These wounds appear stable and do not appear to need surgical debridement at this time. Recommend continued strict offloading and wound care. has been consulted and seen patient. In order to better assess and possibly treat his circulation he would need an arteriogram with possible intervention. This would help optimize wound healing. I discussed this with the patient in detail today. Although the patient reports having kidney disease, his Cr is currently normal. He was unsure if he wanted to proceed with this. He is nonambulatory. He would like to talk with his . He does take Eliquis and aspirin, Eliquis would need to be held prior to procedure if and when scheduled. We will follow. YAYA DAVALOS May 27, 2021 15:59
[2021-05-27 18:53] LABS: BILIRUBIN,URINE NEGATIVE (NEG); CLARITY,URINE CLEAR; COLOR,URINE YELLOW; NITRITE,URINE NEGATIVE (NEG); PH,URINE 6.5 (<5.0-8.0); PROTEIN,URINE NEGATIVE (NEG-TRACE)
[2021-05-27 19:00] VITALS: BP 121/49
[2021-05-27 19:10] LABS: BACTERIA,URINE FEW /HPF (0-FEW)
[2021-05-27 19:11] LABS: RBC,URINE 0 /HPF (0-2)
[2021-05-27] MEDS: LATANOPROST 0.005% OPHTH SOLUTION 2.5ML BOTTLE. OU SCH (21:21)
[2021-05-27] MEDS: ATORVASTATIN CALCIUM 20 MG TABLET PO SCH (21:22)
[2021-05-27 23:00] VITALS: BP 111/48
[2021-05-28 03:00] VITALS: BP 118/43
[2021-05-28 07:00] VITALS: BP 127/61
[2021-05-28 07:39] LABS: BASO % 1 % (0-3); EOS % 0 % (0-3); HEMATOCRIT 27.3 % (39.0-53.0); HEMOGLOBIN 8.9 g/dL (13.0-17.5); LYMPH % 12 % (24-48); MEAN CORPUSCULAR HEMOGLOBIN 29 pg (25-35); MEAN CORPUSCULAR HGB CONC 33 g/dL (31-37); MEAN CORPUSCULAR VOLUME 89 fL (79-100); MONO # 1.4 x10^3/uL (0.0-1.1); MONO % 17 % (0-9); NEUT # 6.2 x10^3/uL (1.8-7.7); NEUT % 71 % (31-73); PLATELET COUNT 275 x10^3/uL (140-400); RED BLOOD COUNT 3.08 x10^6/uL (4.30-5.70); RED CELL DISTRIBUTION WIDTH 18.6 % (11.5-14.5); WHITE BLOOD COUNT 8.8 x10^3/uL (4.0-11.0)
[2021-05-28 08:03] LABS: CALCIUM 8.4 mg/dL (8.5-10.1); CREATININE 1.1 mg/dL (0.7-1.3); GFR 76.4; MAGNESIUM 2.3 mg/dL (1.8-2.4); POTASSIUM 4.1 mmol/L (3.5-5.1)
[2021-05-28] MEDS: CARVEDILOL 12.5 MG TABLET. PO SCH ×2 (08:52→17:48)
[2021-05-28] MEDS: BRIMONIDINE 0.2% OPHTH SOLUTION 5ML BOTTLE. OU SCH ×2 (08:52→22:48)
[2021-05-28] MEDS: APIXABAN 2.5 MG TABLET. PO SCH ×2 (08:52→22:49)
[2021-05-28] MEDS: ASPIRIN ENTERIC COATED 81 MG TABLET.DR. PO SCH (08:53)
[2021-05-28] MEDS: levETIRAcetam 500 MG/5 ML ORAL SOLUTION. PO SCH ×2 (08:53→22:48)
[2021-05-28] MEDS: AMIODARONE HCL 200 MG TABLET. PO SCH (08:53)
[2021-05-28] MEDS: TIMOLOL 0.5% OPHTH SOLUTION 5ML BOTTLE. OD SCH ×2 (08:53→22:48)
[2021-05-28] MEDS: PANTOPRAZOLE 40 MG TABLET.DR. PO SCH (08:54)
[2021-05-28 11:00] VITALS: BP 121/59
--- NOTE | 2021-05-28 11:25 | NUR ---
SW following. Discussed with RN, pt from home with , room air, ada diet. Pt declining to work with therapy, and declining to eat anything but the protein drinks. Dr. Hilliard planning to speak with pt's about hospice. Per RN, pt stating he has a wire coming out of his foot, and sometimes cuts it out - there is no wire in pt's foot. Awaiting further instruction from Dr. Hilliard. JOSSELIN will continue to follow.
--- NOTE | 2021-05-28 13:18 | PDOC ---
[employer] PROGRESS NOTE Date of Service DOS: DATE: 05/28/21 TIME: 13:10 Chief Complaint Chief Complaint Assessment/Plan Peripheral vascular disease bilaterally, with focal narrowing bilaterally in the profunda femoris Generalized weakness Sacral decubitus ulcers Bilateral heel ulcers Caregiver burden Anemia of chronic disease Severe protein malnutrition Dementia History of atrial fibrillation History of hypertension History of CHF History of CAD History of osteoarthritis History of seizure activity Vascular surgery following for peripheral vascular diseaserecommend angiogram however due to the age and risk factors would recommend also palliative care. Pending further discussion with Continue heel offloading and heel boots Wound care consult for ulcers Resume home cardiac medications PT OT Orthostatic vital signs Eliquis for DVT prophylaxis Protonix GI prophylaxis ADA diet CODE STATUS full Discussed with RN and SW Disposition inpatient management as above DPOA: History of Present Illness History of Present Illness 89-year-old male with past medical history of atrial fibrillation, hypertension, GERD, AICD placement, CHF, aortic valve stenosis, CAD, osteoarthritis, anemia who was brought in from [facility] due to worsening generalized weakness. reports that the patient has not been seen by For a long time and she states she cannot take care of him anymore. Most of the events that led up to this point actually started around November 2020 where patient had to remain isolated at home and the was the only one taking care of him. He did have a fall episode where he was required to go to for evaluation. He was subsequently discharged from to [facility] for rehab and then he was sent home afterwards. Because the was not able to take care of him, she was able to use his [employer] benefits to send him to [facility]. According to the , she states that they did not do much rehab with him and the patient was quarantined for 2 weeks and no room without much interaction. She is quite upset about this and her respite care days ran out and she had to take him home on May 15. presents the patient to [facility] in hopes to have social media marketer find placement for the patient to help the for taking care of him. According to the , before November patient was able to ambulate with a walker on his own and go to the kitchen and grab his own self some food and then sit back down. Other than that the patient is unable to make phone calls or do accounting or cook for himself or clean himself. Upon my interview with the patient, patient still thinks he is at [facility] but he is pleasantly confused and is able to answer appropriately questions for immediate basic needs. 05/27/2021 No acute events overnight. Afebrile. Patient seen and examined bedside. No complaints at this time. Duplex ultrasound of the lower extremities completed showing monophasic flow and possibly some narrowing. Will defer to wound care for consulting vascular surgery at this time. Patient's chart, labs, images were reviewed and discussed with RN 05/28/2021 No acute events overnight. Patient seen and examined bedside. RECORDS MANAGEMENT CLERK at bedside as well with him to turn down the right side decubitus. There is stool in his sacral ulcer that was cleaned out. Ulcers are all stable and intact. Asked specifically, if the patient wanted to pursue further treatment for his peripheral vascular disease. Patient stated that he did not know what he would and need to discuss further with his . Vitals/I&O Vitals/I&O: Vital Signs Date Time Temp Pulse Resp B/P (MAP) Pulse Ox O2 Delivery O2 Flow Rate FiO2 05/28/21 11:00 98.4 69 18 121/59 (79) 99 Room Air 98.4 I & O 05/27/21 05/27/21 05/28/21 15:00 23:00 07:00 Intake Total 50 ml 150 ml 100 ml Balance 50 ml 150 ml 100 ml Physical Exam General: Alert, Cooperative, No acute distress Heart: Regular rate Lungs: Clear Abdomen: Soft, No tenderness Extremities: Other (Cannot appreciate pedal pulses, however left DP and PT are adequate via handheld Doppler, right pedal signals are monophasic. 1+ right femoral pulse, hard to feel, 2+ left femoral pulse) Skin: Other (His right lateral ankle has in ulcer overlying his malleolus which does not appear to probe to bone, wound edges are clean there is no purulent drainage or fluctuance or crepitus. His left foot has a moderate sized purple blister overlying the fifth met head without an open area, and a heel pressure wound and ulcer that does not have any drainage, fluctuance or crepitus. Is hard to determine the depth of the heel wound however cannot feel or probe to any bone.) Labs Labs: Laboratory Tests Test 05/27/21 17:02 05/27/21 18:40 05/27/21 19:46 05/28/21 07:25 Glucose (Fingerstick) 79 mg/dL (70-99) 72 mg/dL (70-99) Urine Collection Type Unknown Urine Color Yellow Urine Clarity Clear Urine pH 6.5 (<5.0-8.0) Urine Specific [place] 1.020 (1.000-1.030) Urine Protein Negative mg/dL (NEG-TRACE) Urine Glucose (UA) Negative mg/dL (NEG) Urine Ketones (Stick) Trace mg/dL (NEG) Urine Blood Negative (NEG) Urine Nitrite Negative (NEG) Urine Bilirubin Negative (NEG) Urine Urobilinogen Dipstick 1.0 mg/dL (0.2 mg/dL) Urine Leukocyte Esterase Trace (NEG) Urine RBC 0 /HPF (0-2) Urine WBC 5-10 /HPF (0-4) Urine Squamous Epithelial Cells Mod /LPF Urine Bacteria Few /HPF (0-FEW) Urine Mucus Slight /LPF White Blood Count 8.8 x10^3/uL (4.0-11.0) Red Blood Count 3.08 x10^6/uL (4.30-5.70) Hemoglobin 8.9 g/dL (13.0-17.5) Hematocrit 27.3 % (39.0-53.0) Mean Corpuscular Volume 89 fL (79-100) Mean Corpuscular Hemoglobin 29 pg (25-35) Mean Corpuscular Hemoglobin Concent 33 g/dL (31-37) Red Cell Distribution Width 18.6 % (11.5-14.5) Platelet Count 275 x10^3/uL (140-400) Neutrophils (%) (Auto) 71 % (31-73) Lymphocytes (%) (Auto) 12 % (24-48) Monocytes (%) (Auto) 17 % (0-9) Eosinophils (%) (Auto) 0 % (0-3) Basophils (%) (Auto) 1 % (0-3) Neutrophils # (Auto) 6.2 x10^3/uL (1.8-7.7) Lymphocytes # (Auto) 1.0 x10^3/uL (1.0-4.8) Monocytes # (Auto) 1.4 x10^3/uL (0.0-1.1) Eosinophils # (Auto) 0.0 x10^3/uL (0.0-0.7) Basophils # (Auto) 0.0 x10^3/uL (0.0-0.2) Test 05/28/21 07:30 05/28/21 07:37 05/28/21 12:06 Sodium Level 138 mmol/L (136-145) Potassium Level 4.1 mmol/L (3.5-5.1) Chloride Level 103 mmol/L (98-107) Carbon Dioxide Level 29 mmol/L (21-32) Anion Gap 6 (6-14) Blood Urea Nitrogen 42 mg/dL (8-26) Creatinine 1.1 mg/dL (0.7-1.3) Estimated GFR (Cockcroft-Gault) 76.4 Glucose Level 145 mg/dL (70-99) Calcium Level 8.4 mg/dL (8.5-10.1) Magnesium Level 2.3 mg/dL (1.8-2.4) Glucose (Fingerstick) 158 mg/dL (70-99) 165 mg/dL (70-99) Comment Review of Relevant I have reviewed the following items shelby (where applicable) has been applied. Justifications for Admission Other Justification Debilitation adn generalized weakness ACACIA MORA MD May 28, 2021 13:18
--- NOTE | 2021-05-28 14:33 | PDOC ---
[employer] PROGRESS NOTE Date of Service DOS: DATE: 05/28/21 TIME: 14:29 Chief Complaint Chief Complaint Assessment/Plan Peripheral vascular disease bilaterally, with focal narrowing bilaterally in the profunda femoris Generalized weakness Sacral decubitus ulcers Bilateral heel ulcers Caregiver burden Anemia of chronic disease Severe protein malnutrition Dementia History of atrial fibrillation History of hypertension History of CHF History of CAD History of osteoarthritis History of seizure activity Vascular surgery following for peripheral vascular diseaserecommend angiogram however due to the age and risk factors would recommend also palliative care. Pending further discussion with Continue heel offloading and heel boots Wound care consult for ulcers Resume home cardiac medications PT OT Orthostatic vital signs Eliquis for DVT prophylaxis Protonix GI prophylaxis ADA diet CODE STATUS full Discussed with RN and SW Disposition inpatient management as above DPOA: History of Present Illness History of Present Illness 89-year-old male with past medical history of atrial fibrillation, hypertension, GERD, AICD placement, CHF, aortic valve stenosis, CAD, osteoarthritis, anemia who was brought in from [facility] due to worsening generalized weakness. reports that the patient has not been seen by For a long time and she states she cannot take care of him anymore. Most of the events that led up to this point actually started around November 2020 where patient had to remain isolated at home and the was the only one taking care of him. He did have a fall episode where he was required to go to for evaluation. He was subsequently discharged from to [facility] for rehab and then he was sent home afterwards. Because the was not able to take care of him, she was able to use his VA benefits to send him to [facility]. According to the , she states that they did not do much rehab with him and the patient was quarantined for 2 weeks and no room without much interaction. She is quite upset about this and her respite care days ran out and she had to take him home on May 15. presents the patient to [facility] in hopes to have hospice social worker find placement for the patient to help the for taking care of him. According to the , before November patient was able to ambulate with a walker on his own and go to the kitchen and grab his own self some food and then sit back down. Other than that the patient is unable to make phone calls or do accounting or cook for himself or clean himself. Upon my interview with the patient, patient still thinks he is at [facility] but he is pleasantly confused and is able to answer appropriately questions for immediate basic needs. 05/27/2021 No acute events overnight. Afebrile. Patient seen and examined bedside. No complaints at this time. Duplex ultrasound of the lower extremities completed showing monophasic flow and possibly some narrowing. Will defer to wound care for consulting vascular surgery at this time. Patient's chart, labs, images were reviewed and discussed with RN 05/28/2021 No acute events overnight. Patient seen and examined bedside. LION TRAINER at bedside as well with him to turn down the right side decubitus. There is stool in his sacral ulcer that was cleaned out. Ulcers are all stable and intact. Asked specifically, if the patient wanted to pursue further treatment for his peripheral vascular disease. Patient stated that he did not know what he would and need to discuss further with his . In addition to my E/M visit, advance care planning done with A total time of 30 minutes was spent from 130 to 2:00 over the phone in discussion with the nieceLucian regarding the patient's goals of care, end-of-life care, ADL and IADL, activity level and CODE STATUS. Explained to them that they procedure for angiogram not emergent nor will I expedite healing of the wounds. There are risks for kidney injury and bleeding procedures done which was explained to the niece that this is about 1 to 6% of the general population. Niece states that she will talk to the and also the patient and determine the best option for his care. We will revisit this issue tomorrow. Vitals/I&O Vitals/I&O: Vital Signs Date Time Temp Pulse Resp B/P (MAP) Pulse Ox O2 Delivery O2 Flow Rate FiO2 05/28/21 11:00 98.4 69 18 121/59 (79) 99 Room Air 98.4 I & O 05/27/21 05/27/21 05/28/21 15:00 23:00 07:00 Intake Total 50 ml 150 ml 100 ml Balance 50 ml 150 ml 100 ml Physical Exam General: Alert, Cooperative, No acute distress Heart: Regular rate Lungs: Clear Abdomen: Soft, No tenderness Extremities: Other (Cannot appreciate pedal pulses, however left DP and PT are adequate via handheld Doppler, right pedal signals are monophasic. 1+ right femoral pulse, hard to feel, 2+ left femoral pulse) Skin: Other (His right lateral ankle has in ulcer overlying his malleolus which does not appear to probe to bone, wound edges are clean there is no purulent drainage or fluctuance or crepitus. His left foot has a moderate sized purple blister overlying the fifth met head without an open area, and a heel pressure wound and ulcer that does not have any drainage, fluctuance or crepitus. Is hard to determine the depth of the heel wound however cannot feel or probe to any bone.) Labs Labs: Laboratory Tests Test 05/27/21 17:02 05/27/21 18:40 05/27/21 19:46 05/28/21 07:25 Glucose (Fingerstick) 79 mg/dL (70-99) 72 mg/dL (70-99) Urine Collection Type Unknown Urine Color Yellow Urine Clarity Clear Urine pH 6.5 (<5.0-8.0) Urine Specific Baker 1.020 (1.000-1.030) Urine Protein Negative mg/dL (NEG-TRACE) Urine Glucose (UA) Negative mg/dL (NEG) Urine Ketones (Stick) Trace mg/dL (NEG) Urine Blood Negative (NEG) Urine Nitrite Negative (NEG) Urine Bilirubin Negative (NEG) Urine Urobilinogen Dipstick 1.0 mg/dL (0.2 mg/dL) Urine Leukocyte Esterase Trace (NEG) Urine RBC 0 /HPF (0-2) Urine WBC 5-10 /HPF (0-4) Urine Squamous Epithelial Cells Mod /LPF Urine Bacteria Few /HPF (0-FEW) Urine Mucus Slight /LPF White Blood Count 8.8 x10^3/uL (4.0-11.0) Red Blood Count 3.08 x10^6/uL (4.30-5.70) Hemoglobin 8.9 g/dL (13.0-17.5) Hematocrit 27.3 % (39.0-53.0) Mean Corpuscular Volume 89 fL (79-100) Mean Corpuscular Hemoglobin 29 pg (25-35) Mean Corpuscular Hemoglobin Concent 33 g/dL (31-37) Red Cell Distribution Width 18.6 % (11.5-14.5) Platelet Count 275 x10^3/uL (140-400) Neutrophils (%) (Auto) 71 % (31-73) Lymphocytes (%) (Auto) 12 % (24-48) Monocytes (%) (Auto) 17 % (0-9) Eosinophils (%) (Auto) 0 % (0-3) Basophils (%) (Auto) 1 % (0-3) Neutrophils # (Auto) 6.2 x10^3/uL (1.8-7.7) Lymphocytes # (Auto) 1.0 x10^3/uL (1.0-4.8) Monocytes # (Auto) 1.4 x10^3/uL (0.0-1.1) Eosinophils # (Auto) 0.0 x10^3/uL (0.0-0.7) Basophils # (Auto) 0.0 x10^3/uL (0.0-0.2) Test 05/28/21 07:30 05/28/21 07:37 05/28/21 12:06 Sodium Level 138 mmol/L (136-145) Potassium Level 4.1 mmol/L (3.5-5.1) Chloride Level 103 mmol/L (98-107) Carbon Dioxide Level 29 mmol/L (21-32) Anion Gap 6 (6-14) Blood Urea Nitrogen 42 mg/dL (8-26) Creatinine 1.1 mg/dL (0.7-1.3) Estimated GFR (Cockcroft-Gault) 76.4 Glucose Level 145 mg/dL (70-99) Calcium Level 8.4 mg/dL (8.5-10.1) Magnesium Level 2.3 mg/dL (1.8-2.4) Glucose (Fingerstick) 158 mg/dL (70-99) 165 mg/dL (70-99) Comment Review of Relevant I have reviewed the following items shelby (where applicable) has been applied. Justifications for Admission Other Justification Debilitation adn generalized weakness ACACIA MORA MD May 28, 2021 14:33
[2021-05-28 15:00] VITALS: BP 109/43
[2021-05-28 19:00] VITALS: BP 114/50
[2021-05-28] MEDS: LATANOPROST 0.005% OPHTH SOLUTION 2.5ML BOTTLE. OU SCH (22:48)
[2021-05-28] MEDS: ATORVASTATIN CALCIUM 20 MG TABLET PO SCH (22:48)
[2021-05-28 23:00] VITALS: BP 108/50
[2021-05-29 03:00] VITALS: BP 118/68
[2021-05-29 07:00] VITALS: BP 106/46
[2021-05-29 08:35] LABS: BASO % 1 % (0-3); EOS # 0.1 x10^3/uL (0.0-0.7); EOS % 1 % (0-3); HEMATOCRIT 27.3 % (39.0-53.0); HEMOGLOBIN 8.7 g/dL (13.0-17.5); LYMPH # 1.3 x10^3/uL (1.0-4.8); LYMPH % 18 % (24-48); MEAN CORPUSCULAR HEMOGLOBIN 28 pg (25-35); MEAN CORPUSCULAR HGB CONC 32 g/dL (31-37); MEAN CORPUSCULAR VOLUME 89 fL (79-100); MONO # 1.1 x10^3/uL (0.0-1.1); MONO % 16 % (0-9); NEUT # 4.7 x10^3/uL (1.8-7.7); NEUT % 65 % (31-73); PLATELET COUNT 244 x10^3/uL (140-400); RED BLOOD COUNT 3.08 x10^6/uL (4.30-5.70); RED CELL DISTRIBUTION WIDTH 18.8 % (11.5-14.5); WHITE BLOOD COUNT 7.2 x10^3/uL (4.0-11.0)
[2021-05-29 08:46] LABS: CALCIUM 8.4 mg/dL (8.5-10.1); CREATININE 0.9 mg/dL (0.7-1.3); GFR 96.4; MAGNESIUM 2.2 mg/dL (1.8-2.4); POTASSIUM 3.8 mmol/L (3.5-5.1)
[2021-05-29] MEDS: METHOCARBAMOL 500 MG TABLET PO PRN (08:52)
[2021-05-29] MEDS: CARVEDILOL 12.5 MG TABLET. PO SCH ×3 (08:52→17:23)
[2021-05-29] MEDS: PANTOPRAZOLE 40 MG TABLET.DR. PO SCH (08:52)
[2021-05-29] MEDS: ASPIRIN ENTERIC COATED 81 MG TABLET.DR. PO SCH (08:52)
[2021-05-29] MEDS: AMIODARONE HCL 200 MG TABLET. PO SCH (08:53)
[2021-05-29] MEDS: BRIMONIDINE 0.2% OPHTH SOLUTION 5ML BOTTLE. OU SCH ×2 (08:54→23:08)
[2021-05-29] MEDS: TIMOLOL 0.5% OPHTH SOLUTION 5ML BOTTLE. OD SCH ×2 (08:54→23:08)
[2021-05-29] MEDS: levETIRAcetam 500 MG/5 ML ORAL SOLUTION. PO SCH ×2 (08:55→23:08)
[2021-05-29 11:00] VITALS: BP 120/62
--- NOTE | 2021-05-29 11:14 | PDOC ---
[employer] PROGRESS NOTE Date of Service DOS: DATE: 05/29/21 TIME: 11:12 Chief Complaint Chief Complaint Assessment/Plan Peripheral vascular disease bilaterally, with focal narrowing bilaterally in the profunda femoris Generalized weakness Sacral decubitus ulcers Bilateral heel ulcers Caregiver burden Anemia of chronic disease Severe protein malnutrition Dementia History of atrial fibrillation History of hypertension History of CHF History of CAD History of osteoarthritis History of seizure activity Vascular surgery following for peripheral vascular diseaserecommend angiogram however due to the age and risk factors would recommend also palliative care. Pending further discussion with Continue heel offloading and heel boots Wound care consult for ulcers Resume home cardiac medications PT OT Orthostatic vital signs Eliquis for DVT prophylaxis Protonix GI prophylaxis ADA diet CODE STATUS full Discussed with RN and SW Disposition inpatient management as above DPOA: History of Present Illness History of Present Illness 89-year-old male with past medical history of atrial fibrillation, hypertension, GERD, AICD placement, CHF, aortic valve stenosis, CAD, osteoarthritis, anemia who was brought in from [facility] due to worsening generalized weakness. reports that the patient has not been seen by For a long time and she states she cannot take care of him anymore. Most of the events that led up to this point actually started around November 2020 where patient had to remain isolated at home and the was the only one taking care of him. He did have a fall episode where he was required to go to for evaluation. He was subsequently discharged from to [facility] for rehab and then he was sent home afterwards. Because the was not able to take care of him, she was able to use his VA benefits to send him to [facility] [place]. According to the , she states that they did not do much rehab with him and the patient was quarantined for 2 weeks and no room without much interaction. She is quite upset about this and her respite care days ran out and she had to take him home on May 15. presents the patient to [facility] in hopes to have child welfare social worker find placement for the patient to help the for taking care of him. According to the , before November patient was able to ambulate with a walker on his own and go to the kitchen and grab his own self some food and then sit back down. Other than that the patient is unable to make phone calls or do accounting or cook for himself or clean himself. Upon my interview with the patient, patient still thinks he is at [facility] but he is pleasantly confused and is able to answer appropriately questions for immediate basic needs. 05/27/2021 No acute events overnight. Afebrile. Patient seen and examined bedside. No complaints at this time. Duplex ultrasound of the lower extremities completed showing monophasic flow and possibly some narrowing. Will defer to wound care for consulting vascular surgery at this time. Patient's chart, labs, images were reviewed and discussed with RN 05/28/2021 No acute events overnight. Patient seen and examined bedside. OPERATING MANAGER at bedside as well with him to turn down the right side decubitus. There is stool in his sacral ulcer that was cleaned out. Ulcers are all stable and intact. Asked specifically, if the patient wanted to pursue further treatment for his peripheral vascular disease. Patient stated that he did not know what he would and need to discuss further with his . In addition to my E/M visit, advance care planning done with A total time of 30 minutes was spent from 130 to 2:00 over the phone in discussion with the nieceLucian regarding the patient's goals of care, end-of-life care, ADL and IADL, activity level and CODE STATUS. Explained to them that they procedure for angiogram not emergent nor will I expedite healing of the wounds. There are risks for kidney injury and bleeding procedures done which was explained to the niece that this is about 1 to 6% of the general population. Niece states that she will talk to the and also the patient and determine the best option for his care. We will revisit this issue tomorrow. 05/29/2021 No acute events overnight. Patient seen and examined bedside. also at bedside. Family has decided to proceed with vascular intervention. Pending further vascular intervention and evaluation. Patient's chart, labs, images were reviewed and discussed with RN Vitals/I&O Vitals/I&O: Vital Signs Date Time Temp Pulse Resp B/P (MAP) Pulse Ox O2 Delivery O2 Flow Rate FiO2 05/29/21 08:53 70 106/46 05/29/21 08:05 Room Air 05/29/21 07:00 97.8 98 97.8 05/29/21 03:00 17 I & O 05/28/21 05/28/21 05/29/21 15:00 23:00 07:00 Intake Total 120 ml 120 ml Balance 120 ml 120 ml Physical Exam General: Alert, Cooperative, No acute distress Heart: Regular rate Lungs: Clear Abdomen: Soft, No tenderness Extremities: Other (Cannot appreciate pedal pulses, however left DP and PT are adequate via handheld Doppler, right pedal signals are monophasic. 1+ right femoral pulse, hard to feel, 2+ left femoral pulse) Skin: Other (His right lateral ankle has in ulcer overlying his malleolus which does not appear to probe to bone, wound edges are clean there is no purulent drainage or fluctuance or crepitus. His left foot has a moderate sized purple blister overlying the fifth met head without an open area, and a heel pressure wound and ulcer that does not have any drainage, fluctuance or crepitus. Is hard to determine the depth of the heel wound however cannot feel or probe to any bone.) Labs Labs: Laboratory Tests Test 05/28/21 12:06 05/28/21 16:50 05/28/21 20:10 05/29/21 06:35 Glucose (Fingerstick) 165 mg/dL (70-99) 117 mg/dL (70-99) 114 mg/dL (70-99) White Blood Count 7.2 x10^3/uL (4.0-11.0) Red Blood Count 3.08 x10^6/uL (4.30-5.70) Hemoglobin 8.7 g/dL (13.0-17.5) Hematocrit 27.3 % (39.0-53.0) Mean Corpuscular Volume 89 fL (79-100) Mean Corpuscular Hemoglobin 28 pg (25-35) Mean Corpuscular Hemoglobin Concent 32 g/dL (31-37) Red Cell Distribution Width 18.8 % (11.5-14.5) Platelet Count 244 x10^3/uL (140-400) Neutrophils (%) (Auto) 65 % (31-73) Lymphocytes (%) (Auto) 18 % (24-48) Monocytes (%) (Auto) 16 % (0-9) Eosinophils (%) (Auto) 1 % (0-3) Basophils (%) (Auto) 1 % (0-3) Neutrophils # (Auto) 4.7 x10^3/uL (1.8-7.7) Lymphocytes # (Auto) 1.3 x10^3/uL (1.0-4.8) Monocytes # (Auto) 1.1 x10^3/uL (0.0-1.1) Eosinophils # (Auto) 0.1 x10^3/uL (0.0-0.7) Basophils # (Auto) 0.0 x10^3/uL (0.0-0.2) Sodium Level 137 mmol/L (136-145) Potassium Level 3.8 mmol/L (3.5-5.1) Chloride Level 103 mmol/L (98-107) Carbon Dioxide Level 27 mmol/L (21-32) Anion Gap 7 (6-14) Blood Urea Nitrogen 32 mg/dL (8-26) Creatinine 0.9 mg/dL (0.7-1.3) Estimated GFR (Cockcroft-Gault) 96.4 Glucose Level 93 mg/dL (70-99) Calcium Level 8.4 mg/dL (8.5-10.1) Magnesium Level 2.2 mg/dL (1.8-2.4) Test 05/29/21 07:16 Glucose (Fingerstick) 100 mg/dL (70-99) Comment Review of Relevant I have reviewed the following items shelby (where applicable) has been applied. Medications: Current Medications Medications (Trade) Dose Ordered Sig/Shital Route PRN Reason Start Time Stop Time Status Last Admin Dose Admin Methocarbamol (Robaxin) 500 mg PRN Q8HRS PRN PO BACK PAIN or MUSCLE SPASMS 05/28/21 15:00 05/29/21 08:52 Justifications for Admission Other Justification Debilitation adn generalized weakness ACACIA MORA MD May 29, 2021 11:14
--- NOTE | 2021-05-29 11:53 | CONS ---
DATE OF CONSULTATION: 05/29/2021 ATTENDING PHYSICIAN: Pat Walter DO REASON FOR CONSULTATION: The patient was seen at the request of Dr. Hilliard for rehab evaluation. HISTORY OF PRESENT ILLNESS: This is an 89-year-old right-handed male with known atrial fibrillation, hypertension, gastroesophageal reflux disease, AICD placement, congestive heart failure, aortic valve stenosis, coronary artery disease, osteoarthritis, anemia. The patient is a patient of Dr. Rehman, but has not seen her recently. The patient apparently had been getting up with assistance and using a walker to get around until he fell earlier this year. The patient was seen at [facility], had gone through longterm care unit, later he was there at [facility] with [facility], but he did not get much therapy. He was on quarantine for 2 weeks. The patient was discharged to home on 05/15. His could not able to take care of him. He was admitted on 05/26/2021. The patient admits some lower back pain. THE PATIENT IS KNOWN ALLERGIC TO OXYCODONE. The patient was noted with superficial skin lesion, both feet and legs. Vascular Surgery following him. The patient to have arteriogram to be done on Monday that is 05/31/2021. The patient lives with his . No stairs for him to manage. The patient is not eating any solid food. He admits he does not have much appetite. He denies any trouble with constipation. Nursing staff reports of him having bowel movement on a regular basis. PHYSICAL EXAMINATION: Today revealed an elderly male. He is awake, oriented to place and person, follows commands appropriately. Moves all 4 extremities voluntarily where he had 4/5 to 4+/5 grade muscle strength with relatively increased weakness in shoulder abductors and knee extensors and dorsiflexors of both feet. The patient had crepitus on range of motion of his knee joints with knee joint effusion. He had some limitation of rotational movement at right hip joint. The patient had tenderness to palpation over medial knee joint line. No significant tenderness to palpation over thoracolumbar spine or adjoining paraspinal muscles or sacroiliac joint area or trochanteric bursa. Straight leg raising test is negative bilaterally. He had equal perception of touch and pinprick sensation bilaterally. He had dressing to skin lesions over both feet and legs. The patient had muscle atrophy involving dorsiflexor muscles of both feet. He had dry scaly skin of his extremities and overgrown toenails. He requires some help with rolling from side to side. I have not tested his transfers or ambulation skills at this time. He had crepitus on range of motion of his knee joints and shoulder joint with knee joint effusion and he had some flexion deformity of both knees. He had absent knee and ankle jerks. 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 Clinical evidence of peripheral neuropathy, degenerative joint disease of both knees and right hip, probable degenerative disk disease and degenerative joints of lumbar vertebrae with some back pain while up and also degenerative joint disease of both shoulders with some partial rotator cuff lesions, peripheral vascular disease with bilateral heel ulcers, sacral area decubitus ulcer, severe protein calorie malnutrition, history of atrial fibrillation, hypertension, congestive heart failure, coronary artery disease, seizure activity. RECOMMENDATIONS: Agree with the plan for physical therapy and occupational therapy to get him vascular boots. Agree with the plans per arteriogram and Vascular Surgery if required to help with lower extremity circulation; to ask a dietitian to help with his nutrition; to ask Podiatry to trim his toenails; to obtain x-rays of his lumbar spine, hips and knees. Dr. Hilliard, I appreciate asking me to participate in the care of this interesting patient. I will be glad to see him for followup with you on as needed basis. LAKESHA HOLM: Nneka TID: [id number]
[2021-05-29] MEDS ORDERED: BUPIVACAINE MPF 0.25% 10 ML VIAL. IJ ONE (12:00)
[2021-05-29] MEDS ORDERED: methylPREDNISolone ACETATE 40 MG/ML VIAL. IM ONE (12:00)
[2021-05-29] MEDS ORDERED: methylPREDNISolone ACETATE 40 MG/ML VIAL. INJ ONE (12:00)
[2021-05-29] MEDS: MINERAL OIL/PETROLATUM TOPICAL CREAM 113GM JAR. TP PRN ×2 (12:15→23:15)
--- NOTE | 2021-05-29 12:15 | RAD ---
EXAM: Lumbar spine, 3 views; pelvis and bilateral hips, 3 views; bilateral knees, single view. HISTORY: Pain. COMPARISON: 04/06/2016 FINDINGS: Lumbar spine: 3 views of the lumbar spine are obtained. There are 6 nonrib-bearing lumbar segments. F or the purposes of this dictation, the last segment is considered L6. There is instrumented posterior spinal fusion at L5 to L6. There is grade 1 anterolisthesis at this level. There is mild retrolisthe sis at the remainder of the lumbar levels. There is multilevel endplate remodeling with disc space na rrowing, osteophytosis and Schmorl's node formation. There is chronic mild decreased vertebral body h eight at L3. There is mild S-shaped scoliosis. There is partial visualization of cardiac pacemaker le ads. There is moderate colonic stool. Bilateral hips and pelvis: A frontal view of the pelvis and frog-leg views of both hips are obtained. There is no fracture, dislocation or subluxation. There is minimal marginal femoral head and acetabu lar spurring. The sacroiliac joints are intact. Bilateral knees: A standing view both knees is obtained. There is severe right medial compartment earnest nt space narrowing with subchondral sclerosis, spurring and slight bony remodeling. There is similar appearing severe lateral compartment subchondral sclerosis, spurring and bony remodeling involving th e left knee. There is left genu valgus. There is bilateral knee chondrocalcinosis. There are vascular calcifications. IMPRESSION: 1. Instrumented posterior spinal fusion at the lower lumbar levels. There is no evidence of instrumen tation loosening. 2. Multilevel degenerative change throughout the lumbar spine, described above. There is no acute oss eous finding. 3. Mild bilateral hip osteoarthritis. 4. 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 5. Severe lateral compartment predominant osteoarthritis of the left knee with chondrocalcinosis and slight genu valgus. Electronically signed by: Autumn Osuna MD (05/29/2021 12:13 PM) [id number]
[2021-05-29] MEDS: DICLOFENAC SODIUM 1% TOPICAL GEL 100GM TUBE. TP SCH ×2 (12:16→23:09)
[2021-05-29] MEDS: MEGESTROL 400 MG/10 ML ORAL.SUSP. PO SCH ×2 (12:16→23:08)
[2021-05-29 15:00] VITALS: BP 118/56
[2021-05-29 19:43] VITALS: BP 109/48
[2021-05-29] MEDS: ATORVASTATIN CALCIUM 20 MG TABLET PO SCH (23:08)
[2021-05-29] MEDS: LATANOPROST 0.005% OPHTH SOLUTION 2.5ML BOTTLE. OU SCH (23:08)
[2021-05-29 23:09] VITALS: BP 116/50
[2021-05-30 03:45] VITALS: BP 154/52
[2021-05-30 07:00] VITALS: BP 101/40
[2021-05-30] MEDS: CARVEDILOL 12.5 MG TABLET. PO SCH ×2 (08:00→21:39)
[2021-05-30] MEDS: TIMOLOL 0.5% OPHTH SOLUTION 5ML BOTTLE. OD SCH ×2 (10:24→21:17)
[2021-05-30] MEDS: ASPIRIN ENTERIC COATED 81 MG TABLET.DR. PO SCH (10:25)
[2021-05-30] MEDS: BRIMONIDINE 0.2% OPHTH SOLUTION 5ML BOTTLE. OU SCH ×2 (10:25→21:19)
[2021-05-30] MEDS: METHOCARBAMOL 500 MG TABLET PO PRN (10:26)
[2021-05-30] MEDS: MEGESTROL 400 MG/10 ML ORAL.SUSP. PO SCH ×2 (10:26→21:17)
[2021-05-30] MEDS: levETIRAcetam 500 MG/5 ML ORAL SOLUTION. PO SCH ×2 (10:26→21:17)
[2021-05-30] MEDS: PANTOPRAZOLE 40 MG TABLET.DR. PO SCH (10:26)
[2021-05-30] MEDS: AMIODARONE HCL 200 MG TABLET. PO SCH (10:28)
[2021-05-30] MEDS: DICLOFENAC SODIUM 1% TOPICAL GEL 100GM TUBE. TP SCH ×2 (10:28→21:17)
[2021-05-30 11:00] VITALS: BP 103/49
--- NOTE | 2021-05-30 11:19 | PDOC ---
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 Severe lateral compartment predominant osteoarthritis of the left knee with chondrocalcinosis and slight genu valgus. Caregiver burden Anemia of chronic disease Severe protein malnutrition Dementia History of atrial fibrillation History of hypertension History of CHF History of CAD History of osteoarthritis History of seizure activity Vascular surgery following for peripheral vascular diseaserecommend angiogram however due to the age and risk factors would recommend also palliative care. Pending further discussion with Continue heel offloading and heel boots Wound care consult for ulcers Resume home cardiac medications PT OT Orthostatic vital signs Eliquis for DVT prophylaxis Protonix GI prophylaxis ADA diet CODE STATUS full Discussed with RN and SW Disposition inpatient management as above DPOA: History of Present Illness History of Present Illness 89-year-old male with past medical history of atrial fibrillation, hypertension, GERD, AICD placement, CHF, aortic valve stenosis, CAD, osteoarthritis, anemia who was brought in from [facility] due to worsening generalized weakness. reports that the patient has not been seen by For a long time and she states she cannot take care of him anymore. Most of the events that led up to this point actually started around November 2020 where patient had to remain isolated at home and the was the only one taking care of him. He did have a fall episode where he was required to go to for evaluation. He was subsequently discharged from to [facility] for rehab and then he was sent home afterwards. Be cause the was not able to take care of him, she was able to use his VA benefits to send him to [facility]. According to the , she states that they did not do much rehab with him and the patient was quarantined for 2 weeks and no room without much interaction. She is quite upset about this and her respite care days ran out and she had to take him home on May 15. presents the patient to [facility] in hopes to have social economist find placement for the patient to help the for taking care of him. According to the , before November patient was able to ambulate with a walker on his own and go to the kitchen and grab his own self some food and then sit back down. Other than that the patient is unable to make phone calls or do accounting or cook for himself or clean himself. Upon my interview with the patient, patient still thinks he is at [facility] but he is pleasantly confused and is able to answer appropriately questions for immediate basic needs. 05/27/2021 No acute events overnight. Afebrile. Patient seen and examined bedside. No complaints at this time. Duplex ultrasound of the lower extremities completed showing monophasic flow and possibly some narrowing. Will defer to wound care for consulting vascular surgery at this time. Patient's chart, labs, images were reviewed and discussed with RN 05/28/2021 No acute events overnight. Patient seen and examined bedside. READING TUTOR at bedside as well with him to turn down the right side decubitus. There is stool in his sacral ulcer that was cleaned out. Ulcers are all stable and intact. Asked specifically, if the patient wanted to pursue further treatment for his peripheral vascular disease. Patient stated that he did not know what he would and need to discuss further with his . In addition to my E/M visit, advance care planning done with A total time of 30 minutes was spent from 130 to 2:00 over the phone in discussion with the niece Lucian regarding the patient's goals of care, end-of-life care, ADL and IADL, activity level and CODE STATUS. Explained to them that they procedure for angiogram not emergent nor will I expedite healing of the wounds. There are risks for kidney injury and bleeding procedures done which was explained to the niece that this is about 1 to 6% of the general population. Niece states that she will talk to the and also the patient and determine the best option for his care. We will revisit this issue tomorrow. 05/29/2021 No acute events overnight. Patient seen and examined bedside. also at bedside. Family has decided to proceed with vascular intervention. Pending further vascular intervention and evaluation. Patient's chart, labs, images were reviewed and discussed with RN 05/30/2021 No acute events overnight. Patient seen and examined bedside tolerating breakfast. IR consult placed for possible angiogram on Monday. Appreciate 's evaluation and x-rays are completed. Will defer rest of pain management to Dr Myles and possible steroid injections if pain deems necessary. Patient's chart, labs, images were reviewed and discussed with RN Vitals/I&O Vitals/I&O: Vital Signs Date Time Temp Pulse Resp B/P (MAP) Pulse Ox O2 Delivery O2 Flow Rate FiO2 05/30/21 10:28 70 101/40 05/30/21 08:00 Room Air 05/30/21 07:00 98.7 17 98 98.7 I & O 05/29/21 05/29/21 05/30/21 14:59 22:59 06:59 Intake Total 750 ml 280 ml Balance 750 ml 280 ml Physical Exam General: Alert, Cooperative, No acute distress Heart: Regular rate Lungs: Clear Abdomen: Soft, No tenderness Extremities: Other (Cannot appreciate pedal pulses, however left DP and PT are adequate via handheld Doppler, right pedal signals are monophasic. 1+ right femoral pulse, hard to feel, 2+ left femoral pulse) Skin: Other (His right lateral ankle has in ulcer overlying his malleolus which does not appear to probe to bone, wound edges are clean there is no purulent drainage or fluctuance or crepitus. His left foot has a moderate sized purple blister overlying the fifth met head without an open area, and a heel pressure wound and ulcer that does not have any drainage, fluctuance or crepitus. Is hard to determine the depth of the heel wound however cannot feel or probe to any bone.) Labs Labs: Laboratory Tests Test 05/29/21 12:00 05/29/21 16:38 05/29/21 23:02 05/30/21 07:39 Glucose (Fingerstick) 148 mg/dL (70-99) 118 mg/dL (70-99) 109 mg/dL (70-99) 92 mg/dL (70-99) Comment Review of Relevant I have reviewed the following items shelby (where applicable) has been applied. Medications: Current Medications Medications (Trade) Dose Ordered Sig/Shital Route PRN Reason Start Time Stop Time Status Last Admin Dose Admin Diclofenac Sodium (Voltaren) 1 ema BID TP 05/29/21 12:00 05/30/21 10:28 Megestrol Acetate (Megace) 400 mg BID PO 05/29/21 12:00 05/30/21 10:26 Justifications for Admission Other Justification Debilitation adn generalized weakness ACACIA MORA MD May 30, 2021 11:19
[2021-05-30 15:00] VITALS: BP 111/51
[2021-05-30 20:26] VITALS: BP 116/50
[2021-05-30] MEDS: ATORVASTATIN CALCIUM 20 MG TABLET PO SCH (21:16)
[2021-05-30] MEDS: LATANOPROST 0.005% OPHTH SOLUTION 2.5ML BOTTLE. OU SCH (21:17)
[2021-05-30 23:22] VITALS: BP 97/44
[2021-05-31 03:48] VITALS: BP 112/53
[2021-05-31 07:00] VITALS: BP 110/48
[2021-05-31] MEDS: PANTOPRAZOLE 40 MG TABLET.DR. PO SCH (07:30)
[2021-05-31] MEDS: CARVEDILOL 12.5 MG TABLET. PO SCH ×2 (08:00→16:56)
[2021-05-31] MEDS: ASPIRIN ENTERIC COATED 81 MG TABLET.DR. PO SCH (09:00)
[2021-05-31] MEDS: AMIODARONE HCL 200 MG TABLET. PO SCH (09:00)
[2021-05-31] MEDS: levETIRAcetam 500 MG/5 ML ORAL SOLUTION. PO SCH ×2 (09:00→20:19)
[2021-05-31] MEDS: MEGESTROL 400 MG/10 ML ORAL.SUSP. PO SCH ×2 (09:00→20:19)
--- NOTE | 2021-05-31 09:45 | PDOC ---
PROGRESS NOTES Date of Service DATE: 05/31/21 TIME: 09:39 Subjective Subjective He admits continued lower extremity pain. Objective Objective Vital Signs Date Time Temp Pulse Resp B/P (MAP) Pulse Ox O2 Delivery O2 Flow Rate FiO2 05/31/21 07:00 98.0 55 18 110/48 (68) 98 Room Air 98.0 Intake and Output 05/31/21 07:00 Intake Total 200 ml Balance 200 ml Intake Oral 200 ml # Voids 6 # Bowel Movements 2 Physical Exam Physical Exam He is supine in bed and alert,and he had Ro[place] boots on bilaterally. He had DDD and DJD changes in lumbar and lower thoracic spine,old instrumentation in lumbar spine from previous fusion,DJD changes in his knees and mild DJD at his hip join ts. He had significant limitation of knee joint flexion bilaterally and he had muscle atrophy of leg muscles,especially anterior tibial compartment muscles,bilaterally. Plan Plan of Care Await arteriogram and vascular surgical advise after the procedure. To consider injecting painful knee joints if needed. Comment Review of Relevant I have reviewed the following items shelby (where applicable) has been applied. Labs Laboratory Tests Test 05/29/21 12:00 05/29/21 16:38 05/29/21 23:02 05/30/21 07:39 Glucose (Fingerstick) 148 mg/dL (70-99) 118 mg/dL (70-99) 109 mg/dL (70-99) 92 mg/dL (70-99) Test 05/30/21 11:25 05/30/21 16:30 05/30/21 20:53 05/31/21 07:52 Glucose (Fingerstick) 135 mg/dL (70-99) 89 mg/dL (70-99) 152 mg/dL (70-99) 98 mg/dL (70-99) Test 05/31/21 08:36 SARS-CoV-2 Antigen (Rapid) Negative (NEGATIVE) Laboratory Tests Test 05/30/21 11:25 05/30/21 16:30 05/30/21 20:53 05/31/21 07:52 Glucose (Fingerstick) 135 mg/dL (70-99) 89 mg/dL (70-99) 152 mg/dL (70-99) 98 mg/dL (70-99) Test 05/31/21 08:36 SARS-CoV-2 Antigen (Rapid) Negative (NEGATIVE) Medications Current Medications Amiodarone HCl (Cordarone) 200 mg DAILY PO Last administered on 05/30/21 10:28; Start 05/26/21 at 13:00 Apixaban (Eliquis) 2.5 mg BID PO Last administered on 05/28/21 22:49; Start 05/26/21 at 21:00; Stop 05/29/21 at 10:34; Status DC Aspirin (Ecotrin) 81 mg DAILY PO Last administered on 05/30/21 10:25; Start 05/26/21 at 13:00 Atorvastatin Calcium (Lipitor) 20 mg HS PO Last administered on 05/30/21 21:16; Start 05/26/21 at 21:00 Latanoprost (Xalatan) 1 drop QHS OU Last administered on 05/30/21 21:17; Start 05/26/21 at 21:00 Pantoprazole Sodium (Protonix) 40 mg DAILYAC PO Last administered on 05/30/21 10:26; Start 05/26/21 at 16:30 Brimonidine Tartrate (Alphagan) 1 drop BID OU Last administered on 05/30/21 21:19; Start 05/26/21 at 21:00 Carvedilol (Coreg) 25 mg BIDWMEALS PO Last administered on 05/29/21 17:23; Start 05/26/21 at 17:00 Levetiracetam (Keppra Oral Soln) 375 mg BID PO Last administered on 05/30/21 21:17; Start 05/26/21 at 21:00 Timolol Maleate (Timoptic 0.5% [facility]) 1 drop BID OD Last administered on 05/30/21 21:17; Start 05/26/21 at 21:00 Sennosides (Senna) 17.2 mg PRN BID PRN PO CONSTIPATION; Start 05/26/21 at 12:30 Docusate Sodium (Colace) 100 mg PRN DAILY PRN PO HARD STOOLS; Start 05/26/21 at 12:30 Ondansetron HCl (Zofran) 4 mg PRN Q6HRS PRN IVP NAUSEA/VOMITING; Start 05/26/21 at 12:30 Insulin Human Lispro (HumaLOG) 0-7 UNITS TIDWMEALS SQ ; Start 05/26/21 at 17:00; Stop 05/28/21 at 08:22; Status DC Dextrose (Dextrose 50%-Water Syringe) 12.5 gm PRN Q15MIN PRN IV SEE COMMENTS; Start 05/26/21 at 12:30 Acetaminophen (Tylenol) 650 mg PRN Q4HRS PRN PO TEMP OVER 100.4F OR MILD PAIN Last administered on 05/26/21at 14:45; Start 05/26/21 at 12:30 Lorazepam (Ativan) 0.5 mg PRN Q6HRS PRN PO ANXIETY / AGITATION; Start 05/26/21 at 12:30 Lorazepam (Ativan Inj) 0.25 mg PRN Q4HRS PRN IV ANXIETY / AGITATION; Start 05/26/21 at 12:30 Oxycodone/ Acetaminophen (Percocet 5/325) 1 tab PRN Q4HRS PRN PO MILD PAIN, 1ST CHOICE; Start 05/26/21 at 12:30; Stop 05/26/21 at 12:41; Status DC Prochlorperazine Edisylate (Compazine) 10 mg PRN Q6HRS PRN IV NAUSEA/VOMITING- 2nd choice; Start 05/26/21 at 12:30 Zolpidem Tartrate (Ambien) 2.5 mg PRN QHS PRN PO INSOMNIA; Start 05/26/21 at 12:30 Methocarbamol (Robaxin) 500 mg PRN Q8HRS PRN PO BACK PAIN or MUSCLE SPASMS Last administered on 05/30/21at 10:26; Start 05/28/21 at 15:00 Diclofenac Sodium (Voltaren) 1 ema BID TP Last administered on 05/30/21at 21:17; Start 05/29/21 at 12:00 Multi-Ingredient Ointment (Hydrocerin, Eucerin Cream) 1 ema PRN Q1HR PRN TP DRY SKIN / SCALING Last administered on 05/29/21at 23:15; Start 05/29/21 at 11:15 Megestrol Acetate (Megace) 400 mg BID PO Last administered on 05/30/21at 21:17; Start 05/29/21 at 12:00 Methylprednisolone Acetate (DEPO-Medrol 40MG VIAL) 40 mg 1X ONCE IM ; Start 05/29/21 at 12:00; Stop 05/29/21 at 12:01; Status DC Methylprednisolone Acetate (DEPO-Medrol 40MG VIAL) 40 mg 1X ONCE INJ ; Start 05/29/21 at 12:00; Stop 05/29/21 at 12:01; Status DC Bupivacaine HCl (Sensorcaine-Mpf 0.25%) 10 ml 1X ONCE IJ ; Start 05/29/21 at 12:00; Stop 05/29/21 at 12:01; Status DC Active Scripts Active Reported Spironolactone 25 Mg Tablet 25 Mg PO DAILY Pantoprazole Sodium (Pantoprazole Sodium) 40 Mg Tablet.dr 40 Mg PO DAILYAC Levetiracetam 750 Mg Tab.er.24h 750 Mg PO DAILY Hydralazine Hcl 25 Mg Tablet 25 Mg PO DAILY Eliquis (Apixaban) 2.5 Mg Tablet 2.5 Mg PO BID Diltiazem 24HR Cd (Diltiazem Hcl) 180 Mg Cap.er.24h 180 Mg PO DAILY Losartan Potassium 100 Mg Tablet 100 Mg PO DAILY Betimol (Timolol) 5 Ml Drops 5 Ml OP BID LAST DOSE: 09/02/15 AM NEXT DOSE: 09/02/15 PM Potassium Chloride 20 Meq Tab.er.prt 2 Tab PO DAILYWBKFT LAST DOSE: 09/02/15 BREAKFAST NEXT DOSE: 09/03/15 BREAKFAST NITROGLYCERIN SubLingual (Nitroglycerin) 0.4 Mg Tab.subl 1 Tab SL UD Latanoprost 2.5 Ml Drops 1 Drop EACHEYE QHS LAST DOSE: 09/01/15 BEDTIME NEXT DOSE: 09/02/15 BEDTIME Lasix (Furosemide) 40 Mg Tablet 1 Tab PO DAILY LAST DOSE: 09/02/15 AM NEXT DOSE: 09/03/15 AM Toviaz (Fesoterodine Fumarate) 4 Mg Tab.er.24h 1 Tab PO DAILY NEXT DOSE: 09/03/15 AM Nexium Capsule (Esomeprazole Magnesium) 40 Mg Capsule.dr 1 Cap PO DAILY LAST DOSE: 09/02/15 AM NEXT DOSE: 09/03/15 AM Cardura (Doxazosin Mesylate) 4 Mg Tablet 1 Tab PO HS LAST DOSE: 09/01/15 BEDTIME NEXT DOSE: 09/02/15 BEDTIME Coreg (Carvedilol) 25 Mg Tablet 1 Tab PO BID LAST DOSE: 09/02/15 AM NEXT DOSE: 1/13/16 PM Alphagan P (Brimonidine Tartrate) 5 Ml Drops 1 Drop EACHEYE BID LAST DOSE: 09/02/15 AM NEXT DOSE: 09/02/15 PM Atorvastatin Calcium 20 Mg Tablet 20 Mg PO HS LAST DOSE: 09/01/15 BEDTIME NEXT DOSE: 09/02/15 BEDTIME Aspir 81 (Aspirin) 81 Mg Tablet.dr 1 Tab PO DAILY LAST DOSE: 09/02/15 NEXT DOSE: 09/03/15 AM Amiodarone Hcl 200 Mg Tablet 100 Tab PO DAILY LAST DOSE: 09/02/15 AM NEXT DOSE: 09/03/15 AM Acetaminophen 500 Mg Tablet 2 Tab PO BID LAST DOSE: 09/02/15 NEXT DOSE: 09/02/15 PM Vitals/I & O Vital Sign - Last 24 Hours 05/30/21 05/30/21 05/30/21 05/30/21 10:28 11:00 15:00 20:26 Temp 98.1 98.5 98.1 98.1 98.5 98.1 Pulse 70 71 71 70 Resp 17 17 20 B/P (MAP) 101/40 103/49 (67) 111/51 (71) 116/50 (72) Pulse Ox 97 98 98 O2 Delivery Room Air Room Air Room Air 05/30/21 05/30/21 05/31/21 05/31/21 21:15 23:22 03:48 07:00 Temp 98.4 98.2 98.0 98.4 98.2 98.0 Pulse 69 70 55 Resp 20 18 18 B/P (MAP) 97/44 (61) 112/53 (72) 110/48 (68) Pulse Ox 99 16 98 O2 Delivery Room Air Room Air Room Air Room Air Intake and Output 05/30/21 05/30/21 05/31/21 15:00 23:00 07:00 Intake Total 200 ml Balance 200 ml Justifications for Admission Other Justification Debilitation adn generalized weakness DAVID SAUNDERS MD May 31, 2021 09:45
[2021-05-31 10:17] LABS: PROTHROMBIN TIME PATIENT 15.5 SEC (11.7-14.0)
[2021-05-31 11:00] VITALS: BP 114/52
[2021-05-31] MEDS: BRIMONIDINE 0.2% OPHTH SOLUTION 5ML BOTTLE. OU SCH ×2 (11:11→20:18)
[2021-05-31] MEDS: TIMOLOL 0.5% OPHTH SOLUTION 5ML BOTTLE. OD SCH ×2 (11:11→20:18)
[2021-05-31] MEDS: DICLOFENAC SODIUM 1% TOPICAL GEL 100GM TUBE. TP SCH ×2 (11:12→20:19)
--- NOTE | 2021-05-31 11:24 | NUR ---
SW following. Discussed with RN, pt transferred from room 532, from home with , room air, ada diet. Pt needing an angiogram, however some concerns about pt and spouse capacity to sign consents. SW unsure if Dr. Hilliard had hospice conversation with on Monday or not. Therapy recommending prison care. SW will continue to follow.
--- NOTE | 2021-05-31 12:01 | PDOC ---
[employer] PROGRESS NOTE Date of Service DOS: DATE: 05/31/21 TIME: 12:01 Chief Complaint Chief Complaint Assessment/Plan Peripheral vascular disease bilaterally, with focal narrowing bilaterally in the profunda femoris Generalized weakness Sacral decubitus ulcers Bilateral heel ulcers Multilevel degenerative change throughout the lumbar spine Mild bilateral hip osteoarthritis. 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 Severe lateral compartment predominant osteoarthritis of the left knee with chondrocalcinosis and slight genu valgus. Caregiver burden Anemia of chronic disease Severe protein malnutrition Dementia History of atrial fibrillation History of hypertension History of CHF History of CAD History of osteoarthritis History of seizure activity Vascular surgery following for peripheral vascular diseaserecommend angiogram however due to the age and risk factors would recommend also palliative care. Pending further discussion with Continue heel offloading and heel boots Wound care consult for ulcers Resume home cardiac medications PT OT Orthostatic vital signs Eliquis for DVT prophylaxis Protonix GI prophylaxis ADA diet CODE STATUS full Discussed with RN and SW Disposition inpatient management as above DPOA: History of Present Illness History of Present Illness 89-year-old male with past medical history of atrial fibrillation, hypertension, GERD, AICD placement, CHF, aortic valve stenosis, CAD, osteoarthritis, anemia who was brought in from [facility] due to worsening generalized weakness. reports that the patient has not been seen by For a long time and she states she cannot take care of him anymore. Most of the events that led up to this point actually started around November 2020 where patient had to remain isolated at home and the was the only one taking care of him. He did have a fall episode where he was required to go to for evaluation. [facility] and then he was sent home afterwards. Be cause the was not able to take care of him, she was able to use his VA benefits to send him to [facility]. According to the , she states that they did not do much rehab with him and the patient was quarantined for 2 weeks and no room without much interaction. She is quite upset about this and her respite care days ran out and she had to take him home on May 15. presents the patient to [facility] in hopes to have social worker health services find placement for the patient to help the for taking care of him. According to the , before November patient was able to ambulate with a walker on his own and go to the kitchen and grab his own self some food and then sit back down. Other than that the patient is unable to make phone calls or do accounting or cook for himself or clean himself. Upon my interview with the patient, patient still thinks he is at [facility] but he is pleasantly confused and is able to answer appropriately questions for immediate basic needs. 05/27: No acute events overnight. Afebrile. Patient seen and examined bedside. No complaints at this time. Duplex ultrasound of the lower extremities completed showing monophasic flow and possibly some narrowing. Will defer to wound care for consulting vascular surgery at this time. 05/28: No acute events overnight. Patient seen and examined bedside. FILM EXAMINER at bedside as well with him to turn down the right side decubitus. There is stool in his sacral ulcer that was cleaned out. Ulcers are all stable and intact. Asked specifically, if the patient wanted to pursue further treatment for his peripheral vascular disease. Patient stated that he did not know what he would and need to discuss further with his . 05/29: No acute events overnight. Patient seen and examined bedside. also at bedside. Family has decided to proceed with vascular intervention. Pending further vascular intervention and evaluation. 05/30: No acute events overnight. Patient seen and examined bedside tolerating breakfast. IR consult placed for possible angiogram on Monday. Appreciate 's evaluation and x-rays are completed. Will defer rest of pain management to Dr Myles and possible steroid injections if pain deems necessary. Patient's chart, labs, images were reviewed and discussed with RN Afebrile overnight. N.p.o. for likely angiogram with vascular surgery for right lower extremity wounds. Vitals/I&O Vitals/I&O: Vital Signs Date Time Temp Pulse Resp B/P (MAP) Pulse Ox O2 Delivery O2 Flow Rate FiO2 05/31/21 11:00 98.2 70 18 114/52 (72) 97 98.2 05/31/21 07:00 Room Air I & O 05/30/21 05/30/21 05/31/21 15:00 23:00 07:00 Intake Total 200 ml Balance 200 ml Physical Exam General: Alert, Cooperative, No acute distress Heart: Regular rate Lungs: Clear Abdomen: Soft, No tenderness Extremities: Other (Cannot appreciate pedal pulses, however left DP and PT are adequate via handheld Doppler, right pedal signals are monophasic. 1+ right femoral pulse, hard to feel, 2+ left femoral pulse) Skin: Other (His right lateral ankle has in ulcer overlying his malleolus which does not appear to probe to bone, wound edges are clean there is no purulent drainage or fluctuance or crepitus. His left foot has a moderate sized purple blister overlying the fifth met head without an open area, and a heel pressure wound and ulcer that does not have any drainage, fluctuance or crepitus. Is hard to determine the depth of the heel wound however cannot feel or probe to any bone.) Labs Labs: Laboratory Tests Test 05/30/21 16:30 05/30/21 20:53 05/31/21 07:52 05/31/21 08:36 Glucose (Fingerstick) 89 mg/dL (70-99) 152 mg/dL (70-99) 98 mg/dL (70-99) SARS-CoV-2 Antigen (Rapid) Negative (NEGATIVE) Test 05/31/21 09:58 05/31/21 10:58 Prothrombin Time 15.5 SEC (11.7-14.0) Prothromb Time International Ratio 1.2 (0.8-1.1) Glucose (Fingerstick) 90 mg/dL (70-99) Comment Review of Relevant I have reviewed the following items shelby (where applicable) has been applied. Justifications for Admission Other Justification Debilitation adn generalized weakness KATE GARDNER MD May 31, 2021 12:01
--- NOTE | 2021-05-31 12:12 | PDOC ---
PROGRESS NOTES Date of Service DATE: 05/31/21 TIME: 12:08 Subjective Subjective Over the weekend patient discussed with and is agreeable to angiography with intervention Objective Objective Vital Signs Date Time Temp Pulse Resp B/P (MAP) Pulse Ox O2 Delivery O2 Flow Rate FiO2 05/31/21 11:00 98.2 70 18 114/52 (72) 97 98.2 05/31/21 07:00 Room Air Intake and Output 05/31/21 07:00 Intake Total 200 ml Balance 200 ml Intake Oral 200 ml # Voids 6 # Bowel Movements 2 Physical Exam Physical Exam CV: 2+ femoral pulses bilaterally. 1+ popliteal pulse bilaterally, nonpalpable pedal pulses Extremities: No edema, Other (THere is superficial ulcerations in both feet with the left involving the heel and plantar foot and the right involving the lateral malleolus.) Diagnosis DIAGNOSIS 1. Peripheral arterial disease 2. Right lateral malleolus ulcer 3. Left heel and plantar ulceration 4. Dementia Plan Plan of Care Discussed with Lupe Franco, patient spouse will proceed with Left lower extremity angiography with possible intervention, possible right le angiography for bilateral ulcerations in setting of peripheral arterial disease. Disucssed risks of bleeding, adverse reaction to medications/sedation, need for future procedures, acute kidney injury and cardiopulmonary complications. Patient spouse agrees to proceed. Comment Review of Relevant I have reviewed the following items shelby (where applicable) has been applied. Labs Laboratory Tests Test 05/29/21 16:38 05/29/21 23:02 05/30/21 07:39 05/30/21 11:25 Glucose (Fingerstick) 118 mg/dL (70-99) 109 mg/dL (70-99) 92 mg/dL (70-99) 135 mg/dL (70-99) Test 05/30/21 16:30 05/30/21 20:53 05/31/21 07:52 05/31/21 08:36 Glucose (Fingerstick) 89 mg/dL (70-99) 152 mg/dL (70-99) 98 mg/dL (70-99) SARS-CoV-2 Antigen (Rapid) Negative (NEGATIVE) Test 05/31/21 09:58 05/31/21 10:58 Prothrombin Time 15.5 SEC (11.7-14.0) Prothromb Time International Ratio 1.2 (0.8-1.1) Glucose (Fingerstick) 90 mg/dL (70-99) Laboratory Tests Test 05/30/21 16:30 05/30/21 20:53 05/31/21 07:52 05/31/21 08:36 Glucose (Fingerstick) 89 mg/dL (70-99) 152 mg/dL (70-99) 98 mg/dL (70-99) SARS-CoV-2 Antigen (Rapid) Negative (NEGATIVE) Test 05/31/21 09:58 05/31/21 10:58 Prothrombin Time 15.5 SEC (11.7-14.0) Prothromb Time International Ratio 1.2 (0.8-1.1) Glucose (Fingerstick) 90 mg/dL (70-99) Medications Current Medications Amiodarone HCl (Cordarone) 200 mg DAILY PO Last administered on 05/30/21 10:28; Start 05/26/21 at 13:00 Apixaban (Eliquis) 2.5 mg BID PO Last administered on 05/28/21at 22:49; Start 05/26/21 at 21:00; Stop 05/29/21 at 10:34; Status DC Aspirin (Ecotrin) 81 mg DAILY PO Last administered on 05/30/21 10:25; Start 05/26/21 at 13:00 Atorvastatin Calcium (Lipitor) 20 mg HS PO Last administered on 05/30/21 21:16; Start 05/26/21 at 21:00 Latanoprost (Xalatan) 1 drop QHS OU Last administered on 05/30/21 21:17; Start 05/26/21 at 21:00 Pantoprazole Sodium (Protonix) 40 mg DAILYAC PO Last administered on 05/30/21 10:26; Start 05/26/21 at 16:30 Brimonidine Tartrate (Alphagan) 1 drop BID OU Last administered on 05/31/21at 11:11; Start 05/26/21 at 21:00 Carvedilol (Coreg) 25 mg BIDWMEALS PO Last administered on 05/29/21 17:23; Start 05/26/21 at 17:00 Levetiracetam (Keppra Oral Soln) 375 mg BID PO Last administered on 05/30/21at 21:17; Start 05/26/21 at 21:00 Timolol Maleate (Timoptic 0.5% Oph) 1 drop BID OD Last administered on 05/31/21at 11:11; Start 05/26/21 at 21:00 Sennosides (Senna) 17.2 mg PRN BID PRN PO CONSTIPATION; Start 05/26/21 at 12:30 Docusate Sodium (Colace) 100 mg PRN DAILY PRN PO HARD STOOLS; Start 05/26/21 at 12:30 Ondansetron HCl (Zofran) 4 mg PRN Q6HRS PRN IVP NAUSEA/VOMITING; Start 05/26/21 at 12:30 Insulin Human Lispro (HumaLOG) 0-7 UNITS TIDWMEALS SQ ; Start 05/26/21 at 17:00; Stop 05/28/21 at 08:22; Status DC Dextrose (Dextrose 50%-Water Syringe) 12.5 gm PRN Q15MIN PRN IV SEE COMMENTS; Start 05/26/21 at 12:30 Acetaminophen (Tylenol) 650 mg PRN Q4HRS PRN PO TEMP OVER 100.4F OR MILD PAIN Last administered on 05/26/21at 14:45; Start 05/26/21 at 12:30 Lorazepam (Ativan) 0.5 mg PRN Q6HRS PRN PO ANXIETY / AGITATION; Start 05/26/21 at 12:30 Lorazepam (Ativan Inj) 0.25 mg PRN Q4HRS PRN IV ANXIETY / AGITATION; Start 05/26/21 at 12:30 Oxycodone/ Acetaminophen (Percocet 5/325) 1 tab PRN Q4HRS PRN PO MILD PAIN, 1ST CHOICE; Start 05/26/21 at 12:30; Stop 05/26/21 at 12:41; Status DC Prochlorperazine Edisylate (Compazine) 10 mg PRN Q6HRS PRN IV NAUSEA/VOMITING- 2nd choice; Start 05/26/21 at 12:30 Zolpidem Tartrate (Ambien) 2.5 mg PRN QHS PRN PO INSOMNIA; Start 05/26/21 at 12:30 Methocarbamol (Robaxin) 500 mg PRN Q8HRS PRN PO BACK PAIN or MUSCLE SPASMS Last administered on 05/30/21at 10:26; Start 05/28/21 at 15:00 Diclofenac Sodium (Voltaren) 1 ema BID TP Last administered on 05/31/21at 11:12; Start 05/29/21 at 12:00 Multi-Ingredient Ointment (Hydrocerin, Eucerin Cream) 1 ema PRN Q1HR PRN TP DRY SKIN / SCALING Last administered on 05/29/21at 23:15; Start 05/29/21 at 11:15 Megestrol Acetate (Megace) 400 mg BID PO Last administered on 05/30/21at 21:17; Start 05/29/21 at 12:00 Methylprednisolone Acetate (DEPO-Medrol 40MG VIAL) 40 mg 1X ONCE IM ; Start 05/29/21 at 12:00; Stop 05/29/21 at 12:01; Status DC Methylprednisolone Acetate (DEPO-Medrol 40MG VIAL) 40 mg 1X ONCE INJ ; Start 05/29/21 at 12:00; Stop 05/29/21 at 12:01; Status DC Bupivacaine HCl (Sensorcaine-Mpf 0.25%) 10 ml 1X ONCE IJ ; Start 05/29/21 at 12:00; Stop 05/29/21 at 12:01; Status DC Active Scripts Active Reported Spironolactone 25 Mg Tablet 25 Mg PO DAILY Pantoprazole Sodium (Pantoprazole Sodium) 40 Mg Tablet.dr 40 Mg PO DAILYAC Levetiracetam 750 Mg Tab.er.24h 750 Mg PO DAILY Hydralazine Hcl 25 Mg Tablet 25 Mg PO DAILY Eliquis (Apixaban) 2.5 Mg Tablet 2.5 Mg PO BID Diltiazem 24HR Cd (Diltiazem Hcl) 180 Mg Cap.er.24h 180 Mg PO DAILY Losartan Potassium 100 Mg Tablet 100 Mg PO DAILY Betimol (Timolol) 5 Ml Drops 5 Ml OP BID LAST DOSE: 09/02/15 AM NEXT DOSE: 09/02/15 PM Potassium Chloride 20 Meq Tab.er.prt 2 Tab PO DAILYWBKFT LAST DOSE: 09/02/15 BREAKFAST NEXT DOSE: 09/03/15 BREAKFAST NITROGLYCERIN SubLingual (Nitroglycerin) 0.4 Mg Tab.subl 1 Tab SL UD Latanoprost 2.5 Ml Drops 1 Drop EACHEYE QHS LAST DOSE: 09/01/15 BEDTIME NEXT DOSE: 09/02/15 BEDTIME Lasix (Furosemide) 40 Mg Tablet 1 Tab PO DAILY LAST DOSE: 09/02/15 AM NEXT DOSE: 09/03/15 AM Toviaz (Fesoterodine Fumarate) 4 Mg Tab.er.24h 1 Tab PO DAILY NEXT DOSE: 09/03/15 AM Nexium Capsule (Esomeprazole Magnesium) 40 Mg Capsule.dr 1 Cap PO DAILY LAST DOSE: 09/02/15 AM NEXT DOSE: 09/03/15 AM Cardura (Doxazosin Mesylate) 4 Mg Tablet 1 Tab PO HS LAST DOSE: 09/01/15 BEDTIME NEXT DOSE: 09/02/15 BEDTIME Coreg (Carvedilol) 25 Mg Tablet 1 Tab PO BID LAST DOSE: 09/02/15 AM NEXT DOSE: 09/02/15 PM Alphagan P (Brimonidine Tartrate) 5 Ml Drops 1 Drop EACHEYE BID LAST DOSE: 09/02/15 AM NEXT DOSE: 09/02/15 PM Atorvastatin Calcium 20 Mg Tablet 20 Mg PO HS LAST DOSE: 09/01/15 BEDTIME NEXT DOSE: 09/02/15 BEDTIME Aspir 81 (Aspirin) 81 Mg Tablet.dr 1 Tab PO DAILY LAST DOSE: 09/02/15 AM NEXT DOSE: 09/03/15 AM Amiodarone Hcl 200 Mg Tablet 100 Tab PO DAILY LAST DOSE: 09/02/15 AM NEXT DOSE: 09/03/15 AM Acetaminophen 500 Mg Tablet 2 Tab PO BID LAST DOSE: 09/02/15 AM NEXT DOSE: 09/02/15 PM Vitals/I & O Vital Sign - Last 24 Hours 05/30/21 05/30/21 05/30/21 05/30/21 15:00 20:26 21:15 23:22 Temp 98.5 98.1 98.4 98.5 98.1 98.4 Pulse 71 70 69 Resp 17 20 20 B/P (MAP) 111/51 (71) 116/50 (72) 97/44 (61) Pulse Ox 98 98 99 O2 Delivery Room Air Room Air Room Air Room Air 05/31/21 05/31/21 05/31/21 03:48 07:00 11:00 Temp 98.2 98.0 98.2 98.2 98.0 98.2 Pulse 70 55 70 Resp 18 18 18 B/P (MAP) 112/53 (72) 110/48 (68) 114/52 (72) Pulse Ox 16 98 97 O2 Delivery Room Air Room Air Intake and Output 05/30/21 05/30/21 05/31/21 15:00 23:00 07:00 Intake Total 200 ml Balance 200 ml Justifications for Admission Other Justification Debilitation adn generalized weakness PHIL MARCANO MD May 31, 2021 12:12
--- NOTE | 2021-05-31 12:18 | PHYS DOC ---
MODERATE SEDATION ASSESSMENT RISKS/ALTERNATIVES Risks/Alternatives Risks and alternatives of this type of sedation and procedure discussed with: RISK/ALTERNATIVES: Sig. Other (Lupe Franco) H & P ON CHART H & P H & P on chart and reviewed for co-morbid conditions and appropriate labs. H&P ON CHART: Yes (05/28/[address] Moon) STATUS PREG STATUS ASSESSED: Yes MEDS/ALLERGIES REVIEWED Meds/Allergies Reviewed Medications and Allergies including time and route of recently administered narcotics and sedatives. MEDS/ALLERGIES REVIEWED: Yes ASA RATING ASA RATING: III AIRWAY ASSESSMENT Airway Assessment Airway patency, oral function limitations, presence of caps, crowns, dentures, partials, and ability to extend neck assessed. AIRWAY ASSESSMENT: Yes MALLAMPATI SCORE MALLAMPATI SCORE: III PRE-SEDATION ASSESSMENT PRE-SEDATION ASSESSMENT: Yes PHIL MARCANO MD May 31, 2021 12:18
[2021-05-31] MEDS ORDERED: LIDOCAINE 1% Multi-Dose 20 ML VIAL. ONE (12:29)
[2021-05-31] MEDS ORDERED: IODIXANOL 320 MG/ML 100 ML VIAL. ONE ×2 (12:29→15:18)
[2021-05-31] MEDS ORDERED: HEPARIN for IV BOLUS 10,000 UNIT/10 ML VIAL. ONE ×2 (12:36→13:54)
[2021-05-31] MEDS ORDERED: CONTRAST GIVEN. MC PRN (12:45)
[2021-05-31] MEDS ORDERED: fentaNYL PF VIAL 100 MCG/2 ML VIAL IV ONE (12:45)
[2021-05-31] MEDS ORDERED: LIDOCAINE 1% Multi-Dose 20 ML VIAL. INJ ONE (12:45)
[2021-05-31] MEDS ORDERED: MIDAZOLAM HCL/PF 2 MG/2 ML VIAL. IV ONE (12:45)
[2021-05-31] MEDS ORDERED: IODIXANOL 320 MG/ML 100 ML VIAL. IART ONE (12:45)
[2021-05-31] MEDS ORDERED: NITROGLYCERIN 4 MG/20 ML SYRINGE for CATH LAB. ONE ×2 (13:56→14:00)
[2021-05-31] MEDS ORDERED: HEPARIN for IV BOLUS 10,000 UNIT/10 ML VIAL. IV ONE (15:30)
[2021-05-31] MEDS ORDERED: CLOPIDOGREL BISULFATE 75 MG TABLET ONE (15:56)
[2021-05-31] MEDS ORDERED: CLOPIDOGREL BISULFATE 75 MG TABLET PO ONE (16:00)
[2021-05-31 16:06] VITALS: BP 149/78
--- NOTE | 2021-05-31 16:06 | PDOC ---
BRIEF OPERATIVE NOTE Date: May 31, 2021 Pre-Op Diagnosis 1. Left plantar and heel ulcers 2. Right lateral malleolus ulcer 3. Peripheral arterial disease Post-Op Diagnosis same Procedure Performed 1. Left lower extremity angiography 2. Atherectomy and angioplasty with drug coated balloon of left SFA 3. Abdominal aortogram Surgeon Gisele Plummer Anesthesia Type: Conscious Sedation Findings After much difficulty, successful crossing and atherectomy and angioplasty of Left SFA with excellent angiographic result at completion, no with three vessel runoff to foot and palpable pedal pulses Complications none Operative Note Plavix for 3 months post procedure minimum Aspirin 81 mg daily for life. GISELE PLUMMER MD May 31, 2021 16:06
--- NOTE | 2021-05-31 16:10 | NUR ---
Wound Care: Attempted to see patient regarding wound care. Patient off unit at this time for procedure. Wound care will attempt to see patient again tomorrow 06/01/21.
[2021-05-31] MEDS: IV NORMAL SALINE 1000ML BAG 1,000 ML IV SCH (16:57)
--- NOTE | 2021-05-31 18:41 | OP ---
DATE OF SURGERY: 05/31/2021 PREOPERATIVE DIAGNOSES: 1. Peripheral arterial disease. 2. Left plantar foot ulceration, superficial. 3. Left heel ulceration, superficial. 4. Right lateral malleolus ulceration. 5. Dementia. POSTOPERATIVE DIAGNOSES: 1. Peripheral arterial disease. 2. Left plantar foot ulceration, superficial. 3. Left heel ulceration, superficial. 4. Right lateral malleolus ulceration. 5. Dementia. PROCEDURES: 1. Right common femoral ultrasound-guided access. 2. Abdominal angiogram. 3. Left lower extremity angiogram. 4. Left SFA atherectomy and angioplasty with drug-coated balloon, IN.PACT 6 x 80 mm. 5. Moderate sedation, physician monitored 140 minutes. 6. Placement of closure device, right common femoral artery, MynxGrip. This procedure was exceptionally difficult as the lesion was highly calcified which requiried multiple maneuvers/attempts to cross and treat the left SFA lesion. Please add 22 modifier. INDICATIONS FOR PROCEDURE: This is an 89-year-old male with a history of dementia who had developed superficial ulcerations on his left foot, one on his left heel and one on the plantar surface of his foot. He had evidence of an ultrasound of significant peripheral arterial disease in either the femoral arteries or tibials. He was therefore consented for angiography with possible intervention after discussion with his family regarding goals of care. OPERATIVE FINDINGS: The aortoiliac system is widely patent, although difficult to visualize given the presence of spinal hardware. There is possibly some iodvjapy-ei-fpal stenosis of the right external iliac artery that was not well visualized on this examination. The left common femoral artery and profunda femoris artery are widely patent. The hypogastric is patent on the left. The renal arteries are patent bilaterally. The left SFA had a severe stenosis near the adductor hiatus and 2 tandem stenoses over a length of 8 cm. There was 3-vessel tibial runoff into the foot on the left. DESCRIPTION OF PROCEDURE: The patient was brought to the catheterization lab and placed supine upon the laboratory director table. Surgical time-out was then performed. The bilateral groins were prepped and draped in standard sterile fashion. Moderate sedation was then commenced with the sedation nurse present for monitoring of vital signs and oxygenation throughout the entire procedure. Appropriate monitoring was in place. Total sedation time was 140 minutes with 100 mcg of fentanyl and 2 mg of Versed administered. The right common femoral artery was then accessed under ultrasound after anesthetizing the right groin with 1% lidocaine. An image was saved of the ultrasound to the medical record. This was accessed with a micropuncture kit and with some difficulty due to the level of calcium in the common femoral artery. This was then upsized to a 5-Lebanese sheath. This required the use of a 4-Lebanese sheath as a dilator prior to insertion and this was done over a Borden wire due to difficulty with access. Once this was completed, a flush catheter was then placed in the abdominal aorta and an abdominal aortic angiogram was then taken including iliac arteries with findings as described above. Visualization was somewhat limited by the presence of spinal hardware. I then proceeded with selectively catheterizing the left superficial femoral artery using an 0.035 NaviCross to go up and over the bifurcation and then performed angiographic images and the selective catheterization occurred from the right common femoral artery to left SFA and then performed angiographic images of the left lower extremity. This demonstrated the findings as above with severe stenosis of the left SFA near the adductor hiatus over a length of 8 cm. I then administered heparin and upsized to a 6-Lebanese x 65 Destination sheath and purchased this in the left SFA. I then attempted crossing with an 0.035 platform, which was unsuccessful. I then downsized to an 0.018 platform and eventually an 0.014 microcatheter and was eventually successful using an 0.035 NaviCross for support followed by an 0.014 Corsair microcatheter telescoped into the NaviCross catheter and a Command ES wire to cross both of the tandem stenoses in the left SFA. Again, this was extraordinarily difficult due to the degree of calcification in the arteries causing a severe stenosis at this location. Once I was able to successfully cross these lesions, I then exchanged over the microcatheter for an 0.014 ViperWire and then used a 1.5 CSI Micro [place] to perform atherectomy of the left superficial femoral artery over a length of 8 cm. This was done on low and medium speeds. Due to the degree of severe stenosis related to the calcification and the difficulty with traversing the lesion, I did not place a filter. Additionally, there was excellent 3 vessel tibial runoff. I was unable to place a filter due to this tight narrowing. I then after performing atherectomy did a predilation with a 5 mm angioplasty balloon and then performed final angioplasty with a 6 mm x 8 cm IN.PACT balloon with a good angiographic result without evidence of dissection with no significant residual stenosis. There was intact 3-vessel runoff to the foot on final angiographic images. Total contrast administered was 113 mL. At the completion of the procedure, the patient then had a left palpable pedal pulse. I then exchanged the Destination sheath for a short 6-Lebanese sheath and then performed a closure device with a MynxGrip 6-Lebanese closure system, which was successful to obtain hemostasis in the right common femoral artery. The patient will be bed rest for 2 hours post procedure. There were intact pedal signals on the right side following closure of the arteriotomy. I also stated that the patient was administered heparin to achieve a therapeutic ACT prior to intervention and prior to insertion of the 6-Lebanese sheath with a total of 9000 units of heparin given throughout the procedure. BRIANNA DR: Domi TID: [id number] MTDLinn
[2021-05-31 19:00] VITALS: BP 99/60
[2021-05-31] MEDS: LATANOPROST 0.005% OPHTH SOLUTION 2.5ML BOTTLE. OU SCH (20:18)
[2021-05-31] MEDS: ATORVASTATIN CALCIUM 20 MG TABLET PO SCH (20:19)
[2021-05-31 22:48] VITALS: BP 154/49
[2021-06-01 03:03] VITALS: BP 110/60
[2021-06-01] MEDS: IV NORMAL SALINE 1000ML BAG 1,000 ML IV SCH ×2 (04:45→18:55)
[2021-06-01 07:00] VITALS: BP 120/41
--- NOTE | 2021-06-01 07:23 | PDOC ---
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 Severe lateral compartment predominant osteoarthritis of the left knee with chondrocalcinosis and slight genu valgus. Caregiver burden Anemia of chronic disease Severe protein malnutrition Dementia History of atrial fibrillation History of hypertension History of CHF History of CAD History of osteoarthritis History of seizure activity Vascular surgery following for peripheral vascular diseaserecommend angiogram however due to the age and risk factors would recommend also palliative care. Pending further discussion with Continue heel offloading and heel boots Wound care consult for ulcers Resume home cardiac medications PT OT Orthostatic vital signs Eliquis for DVT prophylaxis Protonix GI prophylaxis ADA diet CODE STATUS full Discussed with RN and SW Disposition inpatient management as above DPOA: 37 MIN PT exam, chart review, > 50% of time spent with exam, chart review, pt care coordination. History of Present Illness History of Present Illness 89-year-old male with past medical history of atrial fibrillation, hypertension, GERD, AICD placement, CHF, aortic valve stenosis, CAD, osteoarthritis, anemia who was brought in from [facility] due to worsening generalized weakness. reports that the patient has not been seen by For a long time and she states she cannot take care of him anymore. Most of the events that led up to this point actually started around November 2020 where patient had to remain isolated at home and the was the only one taking care of him. He did have a fall episode where he was required to go to for evaluation. He was subsequently discharged from to [facility] for rehab and then he was sent home afterwards. Because the was not able to take care of him, she was able to use his [employer] benefits to send him to [facility]. According to the , she states that they did not do much rehab with him and the patient was quarantined for 2 weeks and no room without much interaction. She is quite upset about this and her respite care days ran out and she had to take him home on May 15. presents the patient to [facility] in hopes to have psychologist social find placement for the patient to help the for taking care of him. According to the , before November patient was able to ambulate with a walker on his own and go to the kitchen and grab his own self some food and then sit back down. Other than that the patient is unable to make phone calls or do accounting or cook for himself or clean himself. Upon my interview with the patient, patient still thinks he is at [facility] but he is pleasantly confused and is able to answer appropriately questions for immediate basic needs. 05/27: No acute events overnight. Afebrile. Patient seen and examined bedside. No complaints at this time. Duplex ultrasound of the lower extremities completed showing monophasic flow and possibly some narrowing. Will defer to wound care for consulting vascular surgery at this time. 05/28: No acute events overnight. Patient seen and examined bedside. CHEMICAL PROCESS EQUIPMENT OPERATOR at bedside as well with him to turn down the right side decubitus. There is stool in his sacral ulcer that was cleaned out. Ulcers are all stable and intact. Asked specifically, if the patient wanted to pursue further treatment for his peripheral vascular disease. Patient stated that he did not know what he would and need to discuss further with his . 05/29: No acute events overnight. Patient seen and examined bedside. also at bedside. Family has decided to proceed with vascular intervention. Pending further vascular intervention and evaluation. 05/30: No acute events overnight. Patient seen and examined bedside tolerating breakfast. IR consult placed for possible angiogram on Monday. Appreciate 's evaluation and x-rays are completed. Will defer rest of pain management to Dr Myles and possible steroid injections if pain deems necessary. Patient's chart, labs, images were reviewed and discussed with RN 05/31: Afebrile overnight. To left SFA atherectomy and angioplasty with drug- coated balloon, loaded with plavix per vascular surgery. Pain improved today. He overall feels about the same. WBC minimally. Started on Plavix and Eliquis today. No CP or SOB Vitals/I&O Vitals/I&O: Vital Signs Date Time Temp Pulse Resp B/P (MAP) Pulse Ox O2 Delivery O2 Flow Rate FiO2 06/01/21 03:03 98.0 78 18 110/60 (77) 97 Room Air 98.0 05/31/21 17:33 2.0 I & O 05/31/21 05/31/21 06/01/21 15:00 23:00 07:00 Intake Total 50 ml 100 ml 0 ml Balance 50 ml 100 ml 0 ml Physical Exam General: Alert, Cooperative, No acute distress Heart: Regular rate Lungs: Clear Abdomen: Soft, No tenderness Extremities: No edema, Other (THere is superficial ulcerations in both feet with the left involving the heel and plantar foot and the right involving the lateral malleolus.) Skin: Other (His right lateral ankle has in ulcer overlying his malleolus which does not appear to probe to bone, wound edges are clean there is no purulent drainage or fluctuance or crepitus. His left foot has a moderate sized purple blister overlying the fifth met head without an open area, and a heel pressure wound and ulcer that does not have any drainage, fluctuance or crepitus. Is hard to determine the depth of the heel wound however cannot feel or probe to any bone.) Labs Labs: Laboratory Tests Test 05/31/21 07:52 05/31/21 08:36 05/31/21 09:58 05/31/21 10:58 Glucose (Fingerstick) 98 mg/dL (70-99) 90 mg/dL (70-99) SARS-CoV-2 Antigen (Rapid) Negative (NEGATIVE) Prothrombin Time 15.5 SEC (11.7-14.0) Prothromb Time International Ratio 1.2 (0.8-1.1) Test 05/31/21 15:00 05/31/21 17:38 Activated Clotting Time 259 sec (92-181) Glucose (Fingerstick) 79 mg/dL (70-99) Comment Review of Relevant I have reviewed the following items shelby (where applicable) has been applied. Medications: Current Medications Medications (Trade) Dose Ordered Sig/Shital Route PRN Reason Start Time Stop Time Status Last Admin Dose Admin Midazolam HCl (Versed) 2 mg 1X ONCE IV 05/31/21 12:45 05/31/21 12:46 DC 05/31/21 15:53 Fentanyl Citrate (Fentanyl 2ml Vial) 100 mcg 1X ONCE IV 05/31/21 12:45 05/31/21 12:46 DC 05/31/21 15:54 Iodixanol (Visipaque 320) 100 ml 1X ONCE IART 05/31/21 12:45 05/31/21 12:46 DC 05/31/21 15:53 Lidocaine HCl (Lidocaine 1% 20ml Vial) 20 ml 1X ONCE INJ 05/31/21 12:45 05/31/21 12:46 DC 05/31/21 15:53 Heparin Sodium (Porcine) (Heparin Sodium) 9,000 unit 1X ONCE IV 05/31/21 15:30 05/31/21 15:31 DC 05/31/21 15:56 Diltiazem HCl 10 mg/Nitroglycerin 4 mg/Heparin Sodium (Porcine) 82415 unit/ Miscellaneous 20 ml/Sodium Chloride 1,052 ml @ 1,000 mls/hr 1X ONCE INT CAT 05/31/21 15:30 05/31/21 16:33 DC 05/31/21 15:30 Clopidogrel Bisulfate (Plavix) 300 mg 1X ONCE PO 05/31/21 16:00 05/31/21 16:01 DC 05/31/21 16:00 Sodium Chloride 1,000 ml @ 75 mls/hr [id number] IV 05/31/21 16:15 06/01/21 04:45 Justifications for Admission Other Justification Debilitation adn generalized weakness KATE GARDNER MD Jun 01, 2021 07:22
[2021-06-01 08:00] LABS: BASO # 0.1 x10^3/uL (0.0-0.2); BASO % 1 % (0-3); EOS # 0.1 x10^3/uL (0.0-0.7); EOS % 0 % (0-3); HEMATOCRIT 27.4 % (39.0-53.0); HEMOGLOBIN 8.9 g/dL (13.0-17.5); LYMPH # 1.2 x10^3/uL (1.0-4.8); LYMPH % 10 % (24-48); MEAN CORPUSCULAR HEMOGLOBIN 29 pg (25-35); MEAN CORPUSCULAR HGB CONC 33 g/dL (31-37); MEAN CORPUSCULAR VOLUME 90 fL (79-100); MONO # 1.3 x10^3/uL (0.0-1.1); MONO % 10 % (0-9); NEUT # 9.8 x10^3/uL (1.8-7.7); NEUT % 79 % (31-73); PLATELET COUNT 240 x10^3/uL (140-400); RED BLOOD COUNT 3.04 x10^6/uL (4.30-5.70); RED CELL DISTRIBUTION WIDTH 18.8 % (11.5-14.5); WHITE BLOOD COUNT 12.4 x10^3/uL (4.0-11.0)
[2021-06-01] MEDS: MEGESTROL 400 MG/10 ML ORAL.SUSP. PO SCH ×2 (08:17→22:00)
[2021-06-01] MEDS: ASPIRIN ENTERIC COATED 81 MG TABLET.DR. PO SCH (08:17)
[2021-06-01] MEDS: PANTOPRAZOLE 40 MG TABLET.DR. PO SCH (08:17)
[2021-06-01] MEDS: APIXABAN 5 MG TABLET. PO SCH ×2 (08:17→22:00)
[2021-06-01] MEDS: CLOPIDOGREL BISULFATE 75 MG TABLET PO SCH (08:18)
[2021-06-01] MEDS: DICLOFENAC SODIUM 1% TOPICAL GEL 100GM TUBE. TP SCH ×2 (08:18→22:01)
[2021-06-01] MEDS: levETIRAcetam 500 MG/5 ML ORAL SOLUTION. PO SCH ×2 (08:18→22:00)
[2021-06-01] MEDS: BRIMONIDINE 0.2% OPHTH SOLUTION 5ML BOTTLE. OU SCH ×2 (08:21→22:01)
[2021-06-01] MEDS: TIMOLOL 0.5% OPHTH SOLUTION 5ML BOTTLE. OD SCH ×2 (08:21→22:01)
[2021-06-01] MEDS: AMIODARONE HCL 200 MG TABLET. PO SCH (08:23)
[2021-06-01] MEDS: CARVEDILOL 12.5 MG TABLET. PO SCH ×2 (08:24→16:30)
--- NOTE | 2021-06-01 08:53 | PDOC ---
PROGRESS NOTES Date of Service DATE: 06/01/21 TIME: 08:49 Subjective Subjective He admits continued lower extremity pain. Objective Objective Vital Signs Date Time Temp Pulse Resp B/P (MAP) Pulse Ox O2 Delivery O2 Flow Rate FiO2 06/01/21 08:24 70 123/45 06/01/21 08:07 Room Air 06/01/21 03:03 98.0 18 97 98.0 05/31/21 17:33 2.0 Intake and Output 06/01/21 07:00 Intake Total 150 ml Balance 150 ml Intake Oral 150 ml # Voids 2 # Bowel Movements 1 Physical Exam Physical Exam He is alert,supine in bed with head end propped up and trying to eat his breakfast and he had dressing to his lower extremities and he had angioplasty of left SFA done yesterday. 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 Plan Plan of Care To also consider transfer to LTAC unit if he qualifies. Comment Review of Relevant I have reviewed the following items shelby (where applicable) has been applied. Labs Laboratory Tests Test 05/30/21 11:25 05/30/21 16:30 05/30/21 20:53 05/31/21 07:52 Glucose (Fingerstick) 135 mg/dL (70-99) 89 mg/dL (70-99) 152 mg/dL (70-99) 98 mg/dL (70-99) Test 05/31/21 08:36 05/31/21 09:58 05/31/21 10:58 05/31/21 15:00 SARS-CoV-2 Antigen (Rapid) Negative (NEGATIVE) Prothrombin Time 15.5 SEC (11.7-14.0) Prothromb Time International Ratio 1.2 (0.8-1.1) Glucose (Fingerstick) 90 mg/dL (70-99) Activated Clotting Time 259 sec (92-181) Test 05/31/21 17:38 06/01/21 08:13 Glucose (Fingerstick) 79 mg/dL (70-99) 71 mg/dL (70-99) Laboratory Tests Test 05/31/21 09:58 05/31/21 10:58 05/31/21 15:00 05/31/21 17:38 Prothrombin Time 15.5 SEC (11.7-14.0) Prothromb Time International Ratio 1.2 (0.8-1.1) Glucose (Fingerstick) 90 mg/dL (70-99) 79 mg/dL (70-99) Activated Clotting Time 259 sec (92-181) Test 06/01/21 08:13 Glucose (Fingerstick) 71 mg/dL (70-99) Medications Current Medications Amiodarone HCl (Cordarone) 200 mg DAILY PO Last administered on 06/01/21 08:23; Start 05/26/21 at 13:00 Apixaban (Eliquis) 2.5 mg BID PO Last administered on 05/28/21 22:49; Start 05/26/21 at 21:00; Stop 05/29/21 at 10:34; Status DC Aspirin (Ecotrin) 81 mg DAILY PO Last administered on 06/01/21 08:17; Start 05/26/21 at 13:00 Atorvastatin Calcium (Lipitor) 20 mg HS PO Last administered on 05/31/21 20:19; Start 05/26/21 at 21:00 Latanoprost (Xalatan) 1 drop QHS OU Last administered on 05/31/21 20:18; Start 05/26/21 at 21:00 Pantoprazole Sodium (Protonix) 40 mg DAILYAC PO Last administered on 06/01/21 08:17; Start 05/26/21 at 16:30 Brimonidine Tartrate (Alphagan) 1 drop BID OU Last administered on 06/01/21 08:21; Start 05/26/21 at 21:00 Carvedilol (Coreg) 25 mg BIDWMEALS PO Last administered on 06/01/21 08:24; Start 05/26/21 at 17:00 Levetiracetam (Keppra Oral Soln) 375 mg BID PO Last administered on 06/01/21 08:18; Start 05/26/21 at 21:00 Timolol Maleate (Timoptic 0.5% Oph) 1 drop BID OD Last administered on 06/01/21 08:21; Start 05/26/21 at 21:00 Sennosides (Senna) 17.2 mg PRN BID PRN PO CONSTIPATION; Start 05/26/21 at 12:30 Docusate Sodium (Colace) 100 mg PRN DAILY PRN PO HARD STOOLS; Start 05/26/21 at 12:30 Ondansetron HCl (Zofran) 4 mg PRN Q6HRS PRN IVP NAUSEA/VOMITING; Start 05/26/21 at 12:30 Insulin Human Lispro (HumaLOG) 0-7 UNITS TIDWMEALS SQ ; Start 05/26/21 at 17:00; Stop 05/28/21 at 08:22; Status DC Dextrose (Dextrose 50%-Water Syringe) 12.5 gm PRN Q15MIN PRN IV SEE COMMENTS; Start 05/26/21 at 12:30 Acetaminophen (Tylenol) 650 mg PRN Q4HRS PRN PO TEMP OVER 100.4F OR MILD PAIN Last administered on 05/26/21at 14:45; Start 05/26/21 at 12:30 Lorazepam (Ativan) 0.5 mg PRN Q6HRS PRN PO ANXIETY / AGITATION; Start 05/26/21 at 12:30 Lorazepam (Ativan Inj) 0.25 mg PRN Q4HRS PRN IV ANXIETY / AGITATION; Start 05/26/21 at 12:30 Oxycodone/ Acetaminophen (Percocet 5/325) 1 tab PRN Q4HRS PRN PO MILD PAIN, 1ST CHOICE; Start 05/26/21 at 12:30; Stop 05/26/21 at 12:41; Status DC Prochlorperazine Edisylate (Compazine) 10 mg PRN Q6HRS PRN IV NAUSEA/VOMITING- 2nd choice; Start 05/26/21 at 12:30 Zolpidem Tartrate (Ambien) 2.5 mg PRN QHS PRN PO INSOMNIA; Start 05/26/21 at 12:30 Methocarbamol (Robaxin) 500 mg PRN Q8HRS PRN PO BACK PAIN or MUSCLE SPASMS Last administered on 05/30/21at 10:26; Start 05/28/21 at 15:00 Diclofenac Sodium (Voltaren) 1 ema BID TP Last administered on 06/01/21at 08:18; Start 05/29/21 at 12:00 Multi-Ingredient Ointment (Hydrocerin, Eucerin Cream) 1 ema PRN Q1HR PRN TP DRY SKIN / SCALING Last administered on 05/29/21at 23:15; Start 05/29/21 at 11:15 Megestrol Acetate (Megace) 400 mg BID PO Last administered on 06/01/21at 08:17; Start 05/29/21 at 12:00 Methylprednisolone Acetate (DEPO-Medrol 40MG VIAL) 40 mg 1X ONCE IM ; Start 05/29/21 at 12:00; Stop 05/29/21 at 12:01; Status DC Methylprednisolone Acetate (DEPO-Medrol 40MG VIAL) 40 mg 1X ONCE INJ ; Start 05/29/21 at 12:00; Stop 05/29/21 at 12:01; Status DC Bupivacaine HCl (Sensorcaine-Mpf 0.25%) 10 ml 1X ONCE IJ ; Start 05/29/21 at 12:00; Stop 05/29/21 at 12:01; Status DC Iodixanol (Visipaque 320) 100 ml STK-MED ONCE .ROUTE ; Start 05/31/21 at 12:29; Stop 05/31/21 at 12:29; Status DC Lidocaine HCl (Lidocaine 1% 20ml Vial) 20 ml STK-MED ONCE .ROUTE ; Start 05/31/21 at 12:29; Stop 05/31/21 at 12:29; Status DC Heparin Sodium/ Sodium Chloride 500 ml @ As Directed STK-MED ONCE .ROUTE ; Start 05/31/21 at 12:29; Stop 05/31/21 at 12:29; Status DC Midazolam HCl (Versed) 2 mg 1X ONCE IV Last administered on 05/31/21at 15:53; Start 05/31/21 at 12:45; Stop 05/31/21 at 12:46; Status DC Fentanyl Citrate (Fentanyl 2ml Vial) 100 mcg 1X ONCE IV Last administered on 05/31/21at 15:54; Start 05/31/21 at 12:45; Stop 05/31/21 at 12:46; Status DC Iodixanol (Visipaque 320) 100 ml 1X ONCE IART Last administered on 05/31/21at 15:53; Start 05/31/21 at 12:45; Stop 05/31/21 at 12:46; Status DC Lidocaine HCl (Lidocaine 1% 20ml Vial) 20 ml 1X ONCE INJ Last administered on 05/31/21at 15:53; Start 05/31/21 at 12:45; Stop 05/31/21 at 12:46; Status DC Heparin Sodium (Porcine) (Heparin Sodium) 10,000 unit STK-MED ONCE .ROUTE ; Start 05/31/21 at 12:36; Stop 05/31/21 at 12:36; Status DC Info (CONTRAST GIVEN -- Rx MONITORING) 1 each PRN DAILY PRN MC SEE COMMENTS; Start 05/31/21 at 12:45; Stop 06/02/21 at 12:44 Heparin Sodium (Porcine) (Heparin Sodium) 10,000 unit STK-MED ONCE .ROUTE ; Start 05/31/21 at 13:54; Stop 05/31/21 at 13:54; Status DC Nitroglycerin (Nitroglycerin) 4 mg STK-MED ONCE .ROUTE ; Start 05/31/21 at 13:56; Stop 05/31/21 at 13:57; Status DC Diltiazem HCl (Cardizem Iv Push) 25 mg STK-MED ONCE .ROUTE ; Start 05/31/21 at 13:56; Stop 05/31/21 at 13:57; Status DC Heparin Sodium/ Sodium Chloride 500 ml @ As Directed STK-MED ONCE .ROUTE ; Start 05/31/21 at 14:27; Stop 05/31/21 at 14:27; Status DC Iodixanol (Visipaque 320) 100 ml STK-MED ONCE .ROUTE ; Start 05/31/21 at 15:18; Stop 05/31/21 at 15:19; Status DC Heparin Sodium (Porcine) (Heparin Sodium) 9,000 unit 1X ONCE IV Last administered on 05/31/21at 15:56; Start 05/31/21 at 15:30; Stop 05/31/21 at 15:31; Status DC Diltiazem HCl 10 mg/Nitroglycerin 4 mg/Heparin Sodium (Porcine) 31529 unit/ Miscellaneous 20 ml/Sodium Chloride 1,052 ml @ 1,000 mls/hr 1X ONCE INT CAT Last administered on 05/31/21at 15:30; Start 05/31/21 at 15:30; Stop 05/31/21 at 16:33; Status DC Clopidogrel Bisulfate (Plavix) 300 mg 1X ONCE PO Last administered on 05/31/21at 16:00; Start 05/31/21 at 16:00; Stop 05/31/21 at 16:01; Status DC Clopidogrel Bisulfate (Plavix) 75 mg STK-MED ONCE .ROUTE ; Start 05/31/21 at 1 5:56; Stop 05/31/21 at 15:56; Status DC Sodium Chloride 1,000 ml @ 75 mls/hr [id number] IV Last administered on 06/01/21at 04:45; Start 05/31/21 at 16:15 Clopidogrel Bisulfate (Plavix) 75 mg DAILYWBKFT PO Last administered on 06/01/21at 08:18; Start 06/01/21 at 08:00 Apixaban (Eliquis) 5 mg BID PO Last administered on 06/01/21at 08:17; Start 06/01/21 at 09:00 Active Scripts Active Reported Spironolactone 25 Mg Tablet 25 Mg PO DAILY Pantoprazole Sodium (Pantoprazole Sodium) 40 Mg Tablet.dr 40 Mg PO DAILYAC Levetiracetam 750 Mg Tab.er.24h 750 Mg PO DAILY Hydralazine Hcl 25 Mg Tablet 25 Mg PO DAILY Eliquis (Apixaban) 2.5 Mg Tablet 2.5 Mg PO BID Diltiazem 24HR Cd (Diltiazem Hcl) 180 Mg Cap.er.24h 180 Mg PO DAILY Losartan Potassium 100 Mg Tablet 100 Mg PO DAILY Betimol (Timolol) 5 Ml Drops 5 Ml OP BID LAST DOSE: 09/02/15 AM NEXT DOSE: 09/02/15 PM Potassium Chloride 20 Meq Tab.er.prt 2 Tab PO DAILYWBKFT LAST DOSE: 09/02/15 BREAKFAST NEXT DOSE: 09/03/15 BREAKFAST NITROGLYCERIN SubLingual (Nitroglycerin) 0.4 Mg Tab.subl 1 Tab SL UD Latanoprost 2.5 Ml Drops 1 Drop EACHEYE QHS LAST DOSE: 09/01/15 BEDTIME NEXT DOSE: 09/02/15 BEDTIME Lasix (Furosemide) 40 Mg Tablet 1 Tab PO DAILY LAST DOSE: 09/02/15 AM NEXT DOSE: 09/03/15 AM Toviaz (Fesoterodine Fumarate) 4 Mg Tab.er.24h 1 Tab PO DAILY NEXT DOSE: 09/03/15 AM Nexium Capsule (Esomeprazole Magnesium) 40 Mg Capsule.dr 1 Cap PO DAILY LAST DOSE: 09/02/15 AM NEXT DOSE: 09/03/15 AM Cardura (Doxazosin Mesylate) 4 Mg Tablet 1 Tab PO HS LAST DOSE: 09/01/15 BEDTIME NEXT DOSE: 09/02/15 BEDTIME Coreg (Carvedilol) 25 Mg Tablet 1 Tab PO BID LAST DOSE: 09/02/15 AM NEXT DOSE: 09/02/15 PM Alphagan P (Brimonidine Tartrate) 5 Ml Drops 1 Drop EACHEYE BID LAST DOSE: 09/02/15 AM NEXT DOSE: 09/02/15 PM Atorvastatin Calcium 20 Mg Tablet 20 Mg PO HS LAST DOSE: 09/01/15 BEDTIME NEXT DOSE: 09/02/15 BEDTIME Aspir 81 (Aspirin) 81 Mg Tablet.dr 1 Tab PO DAILY LAST DOSE: 09/02/15 AM NEXT DOSE: 09/03/15 AM Amiodarone Hcl 200 Mg Tablet 100 Tab PO DAILY LAST DOSE: 09/02/15 AM NEXT DOSE: 09/03/15 AM Acetaminophen 500 Mg Tablet 2 Tab PO BID LAST DOSE: 09/02/15 AM NEXT DOSE: 09/02/15 PM Vitals/I & O Vital Sign - Last 24 Hours 05/31/21 05/31/21 05/31/21 05/31/21 11:00 15:30 15:54 16:06 Temp 98.2 98.2 Pulse 70 69 69 Resp 18 18 19 B/P (MAP) 114/52 (72) 164/79 Pulse Ox 97 100 99 O2 Delivery Nasal Cannula Nasal Cannula O2 Flow Rate 2.0 2.0 05/31/21 05/31/21 05/31/21 05/31/21 16:56 17:33 19:00 20:00 Temp 97.8 97.8 Pulse 69 72 Resp 18 B/P (MAP) 132/56 99/60 (73) Pulse Ox 99 99 O2 Delivery Room Air Room Air Room Air O2 Flow Rate 2.0 05/31/21 06/01/21 06/01/21 06/01/21 22:48 03:03 08:07 08:23 Temp 97.9 98.0 97.9 98.0 Pulse 72 78 70 Resp 16 18 B/P (MAP) 154/49 (84) 110/60 (77) 123/45 Pulse Ox 96 97 O2 Delivery Room Air Room Air Room Air 06/01/21 08:24 Pulse 70 B/P (MAP) 123/45 Intake and Output 05/31/21 05/31/21 06/01/21 15:00 23:00 07:00 Intake Total 50 ml 100 ml 0 ml Balance 50 ml 100 ml 0 ml Justifications for Admission Other Justification Debilitation adn generalized weakness DAVID SAUNDERS MD Jun 01, 2021 08:53
[2021-06-01 10:26] LABS: CALCIUM 7.8 mg/dL (8.5-10.1); CREATININE 0.8 mg/dL (0.7-1.3); GFR 110.4; POTASSIUM 4.2 mmol/L (3.5-5.1)
[2021-06-01 11:00] VITALS: BP 116/49
--- NOTE | 2021-06-01 14:56 | NUR ---
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 . Right lateral ankle is very close to bone and left heel remains slough and eschar covered will continue to try to soften with dressings. All wounds cleansed, assessed, and measured. Treatment Recommendations/Plan: Cleanse wounds and pat dry. Sacrum- Medi-honey gel applied to xeroform gauze and cover with foam dressing. Left plantar foot- skin prep and foam dressing Right lateral ankle- iodoflex and foam dressing Left heel- apply medihoney gel applied to xeroform gauze and foam. Change dressings on Monday and Monday. Education provided: Pt educated on PU prevention and WC POC. Offloading surface/device: Rooke boots placed back on patient. Pt turned to left side with wedge and heel floated. Patient is currently on a P-500 bed. Recommended Referrals/Tests: Patient had successful angio yesterday. Discharge Recommendations for dressings: Continue current treatment. No other wounds noted. Iodoflex left in room for next dressing changes. Bed lowered and call light in reach. Wound care will follow up on 06/09/21.
[2021-06-01 15:00] VITALS: BP 113/71
[2021-06-01 19:00] VITALS: BP 126/39
[2021-06-01] MEDS: ATORVASTATIN CALCIUM 20 MG TABLET PO SCH (22:00)
[2021-06-01] MEDS: LATANOPROST 0.005% OPHTH SOLUTION 2.5ML BOTTLE. OU SCH (22:01)
[2021-06-01 23:00] VITALS: BP 118/51
[2021-06-02 03:50] VITALS: BP 119/57
[2021-06-02 07:00] VITALS: BP 135/54
--- NOTE | 2021-06-02 07:37 | PDOC ---
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 Severe lateral compartment predominant osteoarthritis of the left knee with chondrocalcinosis and slight genu valgus. Caregiver burden Anemia of chronic disease Severe protein malnutrition Dementia History of atrial fibrillation History of hypertension History of CHF History of CAD History of osteoarthritis History of seizure activity Vascular surgery following for peripheral vascular diseaserecommend angiogram however due to the age and risk factors would recommend also palliative care. Pending further discussion with Continue heel offloading and heel boots Wound care consult for ulcers Resume home cardiac medications PT OT Orthostatic vital signs Eliquis for DVT prophylaxis Protonix GI prophylaxis ADA diet CODE STATUS full Discussed with RN and SW Disposition inpatient management as above DPOA: 37 MIN PT exam, chart review, > 50% of time spent with exam, chart review, pt care coordination. History of Present Illness History of Present Illness 89-year-old male with past medical history of atrial fibrillation, hypertension, GERD, AICD placement, CHF, aortic valve stenosis, CAD, osteoarthritis, anemia who was brought in from [facility] due to worsening generalized weakness. reports that the patient has not been seen by For a long time and she states she cannot take care of him anymore. Most of the events that led up to this point actually started around November 2020 where patient had to remain isolated at home and the was the only one taking care of him. He did have a fall episode where he was required to go to for evaluation. He was subsequently discharged from to [facility] for rehab and then he was sent home afterwards. Because the was not able to take care of him, she was able to use his VA benefits to send him to [facility]. According to the , she states that they did not do much rehab with him and the patient was quarantined for 2 weeks and no room without much interaction. She is quite upset about this and her respite care days ran out and she had to take him home on May 15. presents the patient to [facility] in hopes to have social media sr strategy manager find placement for the patient to help the for taking care of him. According to the , before November patient was able to ambulate with a walker on his own and go to the kitchen and grab his own self some food and then sit back down. Other than that the patient is unable to make phone calls or do accounting or cook for himself or clean himself. Upon my interview with the patient, patient still thinks he is at [facility] but he is pleasantly confused and is able to answer appropriately questions for immediate basic needs. 05/27: No acute events overnight. Afebrile. Patient seen and examined bedside. No complaints at this time. Duplex ultrasound of the lower extremities completed showing monophasic flow and possibly some narrowing. Will defer to wound care for consulting vascular surgery at this time. 05/28: No acute events overnight. Patient seen and examined bedside. SALES [employer]PRESENT[employer] at bedside as well with him to turn down the right side decubitus. There is stool in his sacral ulcer that was cleaned out. Ulcers are all stable and intact. Asked specifically, if the patient wanted to pursue further treatment for his peripheral vascular disease. Patient stated that he did not know what he would and need to discuss further with his . 05/29: No acute events overnight. Patient seen and examined bedside. also at bedside. Family has decided to proceed with vascular intervention. Pending further vascular intervention and evaluation. 05/30: No acute events overnight. Patient seen and examined bedside tolerating breakfast. IR consult placed for possible angiogram on Monday. Appreciate 's evaluation and x-rays are completed. Will defer rest of pain management to Dr Myles and possible steroid injections if pain deems necessary. Patient's chart, labs, images were reviewed and discussed with RN 05/31: Afebrile overnight. To left SFA atherectomy and angioplasty with drug- coated balloon, loaded with plavix per vascular surgery. 06/01: Pain improved today. He overall feels about the same. WBC minimally increased. Started on Plavix and Eliquis today. No CP or SOB. Repeat PT evaluation - SNF vs LTACH Afebrile. Complaint of right lateral ankle pain. Otherwise comfortable with rook boots. D/w bedside, she wishes to discuss home rehab vs LTACH, has previously had poor experience with 2 local SNFs. K 3.4 today. Vitals/I&O Vitals/I&O: Vital Signs Date Time Temp Pulse Resp B/P (MAP) Pulse Ox O2 Delivery O2 Flow Rate FiO2 06/02/21 03:50 98.0 68 16 119/57 (77) 99 Room Air 2.0 98.0 I & O 06/01/21 06/01/21 06/02/21 15:00 23:00 07:00 Intake Total 500 ml 0 ml 120 ml Balance 500 ml 0 ml 120 ml Physical Exam General: Alert, Cooperative, No acute distress Heart: Regular rate Lungs: Clear Abdomen: Soft, No tenderness Extremities: No edema, Other (THere is superficial ulcerations in both feet with the left involving the heel and plantar foot and the right involving the lateral malleolus.) Skin: Other (His right lateral ankle has in ulcer overlying his malleolus which does not appear to probe to bone, wound edges are clean there is no purulent drainage or fluctuance or crepitus. His left foot has a moderate sized purple blister overlying the fifth met head without an open area, and a heel pressure wound and ulcer that does not have any drainage, fluctuance or crepitus. Is hard to determine the depth of the heel wound however cannot feel or probe to any bone.) Labs Labs: Laboratory Tests Test 06/01/21 08:13 06/01/21 11:26 06/01/21 17:06 06/01/21 19:48 Glucose (Fingerstick) 71 mg/dL (70-99) 133 mg/dL (70-99) 112 mg/dL (70-99) 111 mg/dL (70-99) Comment Review of Relevant I have reviewed the following items shelby (where applicable) has been applied. Medications: Current Medications Medications (Trade) Dose Ordered Sig/Shital Route PRN Reason Start Time Stop Time Status Last Admin Dose Admin Clopidogrel Bisulfate (Plavix) 75 mg DAILYWBKFT PO 06/01/21 08:00 06/01/21 08:18 Apixaban (Eliquis) 5 mg BID PO 06/01/21 09:00 06/01/21 22:00 Justifications for Admission Other Justification Debilitation adn generalized weakness KATE GARDNER MD Jun 02, 2021 07:37
[2021-06-02 08:19] LABS: CREATININE 0.7 mg/dL (0.7-1.3); GFR 128.8; POTASSIUM 3.4 mmol/L (3.5-5.1)
[2021-06-02] MEDS: ASPIRIN ENTERIC COATED 81 MG TABLET.DR. PO SCH (08:40)
[2021-06-02] MEDS: levETIRAcetam 500 MG/5 ML ORAL SOLUTION. PO SCH ×2 (08:40→20:19)
[2021-06-02] MEDS: MEGESTROL 400 MG/10 ML ORAL.SUSP. PO SCH ×2 (08:40→20:20)
[2021-06-02] MEDS: CLOPIDOGREL BISULFATE 75 MG TABLET PO SCH (08:41)
[2021-06-02] MEDS: CARVEDILOL 12.5 MG TABLET. PO SCH ×2 (08:41→17:22)
[2021-06-02] MEDS: AMIODARONE HCL 200 MG TABLET. PO SCH (08:41)
[2021-06-02] MEDS: APIXABAN 5 MG TABLET. PO SCH ×2 (08:41→20:20)
[2021-06-02] MEDS: PANTOPRAZOLE 40 MG TABLET.DR. PO SCH (08:41)
[2021-06-02] MEDS: IV NORMAL SALINE 1000ML BAG 1,000 ML IV SCH ×2 (08:42→20:21)
[2021-06-02] MEDS: DICLOFENAC SODIUM 1% TOPICAL GEL 100GM TUBE. TP SCH ×2 (09:00→20:20)
[2021-06-02] MEDS: TIMOLOL 0.5% OPHTH SOLUTION 5ML BOTTLE. OD SCH ×2 (09:00→20:20)
[2021-06-02] MEDS: BRIMONIDINE 0.2% OPHTH SOLUTION 5ML BOTTLE. OU SCH ×2 (09:00→20:21)
--- NOTE | 2021-06-02 09:03 | PDOC ---
PROGRESS NOTES Date of Service DATE: 06/02/21 TIME: 08:59 Subjective Subjective Reprots pain at right lateral malleolus but no other acute concerns. Objective Objective Vital Signs Date Time Temp Pulse Resp B/P (MAP) Pulse Ox O2 Delivery O2 Flow Rate FiO2 06/02/21 08:41 68 119/57 06/02/21 03:50 98.0 16 99 Room Air 2.0 98.0 Intake and Output 06/02/21 07:00 Intake Total 620 ml Balance 620 ml Intake Oral 620 ml # Voids 2 # Bowel Movements 2 Physical Exam Physical Exam CV: palpable 2+ dp pulse on left. No groin hematoma or pseudoaneurysm on right. 2+ right femora GEN: alert, cooperative, conversant NEURO: Intact sensation bilateral lower extremities MSK: normal active ROM bilateral ankles and toes. SKIN: Superficial ulceration right lateral malleolus stable in size without evidence of infection. left heel ulceration and plantar ulceration unchanged. Assessment Assessment 1. left heel and plantar foot ulceration 2. Right lateral malleolus ulceration 3. A fib on eliquis Continue plavix and eliquis (plavix for minimum of 3 months) post revascularization LLE ultrasound and follow up in 1 month Will consider Rle intervention if no improvement with local wound care given small size of wound. Comment Review of Relevant I have reviewed the following items shelby (where applicable) has been applied. Labs Laboratory Tests Test 05/31/21 09:58 05/31/21 10:58 05/31/21 15:00 05/31/21 17:38 Prothrombin Time 15.5 SEC (11.7-14.0) Prothromb Time International Ratio 1.2 (0.8-1.1) Glucose (Fingerstick) 90 mg/dL (70-99) 79 mg/dL (70-99) Activated Clotting Time 259 sec (92-181) Test 06/01/21 07:30 06/01/21 08:13 06/01/21 11:26 06/01/21 17:06 White Blood Count 12.4 x10^3/uL (4.0-11.0) Red Blood Count 3.04 x10^6/uL (4.30-5.70) Hemoglobin 8.9 g/dL (13.0-17.5) Hematocrit 27.4 % (39.0-53.0) Mean Corpuscular Volume 90 fL (79-100) Mean Corpuscular Hemoglobin 29 pg (25-35) Mean Corpuscular Hemoglobin Concent 33 g/dL (31-37) Red Cell Distribution Width 18.8 % (11.5-14.5) Platelet Count 240 x10^3/uL (140-400) Neutrophils (%) (Auto) 79 % (31-73) Lymphocytes (%) (Auto) 10 % (24-48) Monocytes (%) (Auto) 10 % (0-9) Eosinophils (%) (Auto) 0 % (0-3) Basophils (%) (Auto) 1 % (0-3) Neutrophils # (Auto) 9.8 x10^3/uL (1.8-7.7) Lymphocytes # (Auto) 1.2 x10^3/uL (1.0-4.8) Monocytes # (Auto) 1.3 x10^3/uL (0.0-1.1) Eosinophils # (Auto) 0.1 x10^3/uL (0.0-0.7) Basophils # (Auto) 0.1 x10^3/uL (0.0-0.2) Sodium Level 141 mmol/L (136-145) Potassium Level 4.2 mmol/L (3.5-5.1) Chloride Level 107 mmol/L (98-107) Carbon Dioxide Level 16 mmol/L (21-32) Anion Gap 18 (6-14) Blood Urea Nitrogen 21 mg/dL (8-26) Creatinine 0.8 mg/dL (0.7-1.3) Estimated GFR (Cockcroft-Gault) 110.4 Glucose Level 69 mg/dL (70-99) Calcium Level 7.8 mg/dL (8.5-10.1) Glucose (Fingerstick) 71 mg/dL (70-99) 133 mg/dL (70-99) 112 mg/dL (70-99) Test 06/01/21 19:48 06/02/21 06:20 06/02/21 07:51 Glucose (Fingerstick) 111 mg/dL (70-99) 82 mg/dL (70-99) Sodium Level 139 mmol/L (136-145) Potassium Level 3.4 mmol/L (3.5-5.1) Chloride Level 108 mmol/L (98-107) Carbon Dioxide Level 21 mmol/L (21-32) Anion Gap 10 (6-14) Blood Urea Nitrogen 17 mg/dL (8-26) Creatinine 0.7 mg/dL (0.7-1.3) Estimated GFR (Cockcroft-Gault) 128.8 Glucose Level 75 mg/dL (70-99) Calcium Level 8.0 mg/dL (8.5-10.1) Laboratory Tests Test 06/01/21 11:26 06/01/21 17:06 06/01/21 19:48 06/02/21 06:20 Glucose (Fingerstick) 133 mg/dL (70-99) 112 mg/dL (70-99) 111 mg/dL (70-99) Sodium Level 139 mmol/L (136-145) Potassium Level 3.4 mmol/L (3.5-5.1) Chloride Level 108 mmol/L (98-107) Carbon Dioxide Level 21 mmol/L (21-32) Anion Gap 10 (6-14) Blood Urea Nitrogen 17 mg/dL (8-26) Creatinine 0.7 mg/dL (0.7-1.3) Estimated GFR (Cockcroft-Gault) 128.8 Glucose Level 75 mg/dL (70-99) Calcium Level 8.0 mg/dL (8.5-10.1) Test 06/02/21 07:51 Glucose (Fingerstick) 82 mg/dL (70-99) Medications Current Medications Amiodarone HCl (Cordarone) 200 mg DAILY PO Last administered on 06/02/21 08:41; Start 05/26/21 at 13:00 Apixaban (Eliquis) 2.5 mg BID PO Last administered on 05/28/21 22:49; Start 05/26/21 at 21:00; Stop 05/29/21 at 10:34; Status DC Aspirin (Ecotrin) 81 mg DAILY PO Last administered on 06/02/21 08:40; Start 05/26/21 at 13:00 Atorvastatin Calcium (Lipitor) 20 mg HS PO Last administered on 06/01/21 22:0 0; Start 05/26/21 at 21:00 Latanoprost (Xalatan) 1 drop QHS OU Last administered on 10/12/21at 22:01; Start 05/26/21 at 21:00 Pantoprazole Sodium (Protonix) 40 mg DAILYAC PO Last administered on 06/02/21at 08:41; Start 05/26/21 at 16:30 Brimonidine Tartrate (Alphagan) 1 drop BID OU Last administered on 06/01/21at 22:01; Start 05/26/21 at 21:00 Carvedilol (Coreg) 25 mg BIDWMEALS PO Last administered on 06/02/21at 08:41; Start 05/26/21 at 17:00 Levetiracetam (Keppra Oral Soln) 375 mg BID PO Last administered on 06/02/21at 08:40; Start 05/26/21 at 21:00 Timolol Maleate (Timoptic 0.5% [facility]) 1 drop BID OD Last administered on 05/21 10/11at 22:01; Start 05/26/21 at 21:00 Sennosides (Senna) 17.2 mg PRN BID PRN PO CONSTIPATION; Start 05/26/21 at 12:30 Docusate Sodium (Colace) 100 mg PRN DAILY PRN PO HARD STOOLS; Start 05/26/21 at 12:30 Ondansetron HCl (Zofran) 4 mg PRN Q6HRS PRN IVP NAUSEA/VOMITING; Start 05/26/21 at 12:30 Insulin Human Lispro (HumaLOG) 0-7 UNITS TIDWMEALS SQ ; Start 05/26/21 at 17:00; Stop 05/28/21 at 08:22; Status DC Dextrose (Dextrose 50%-Water Syringe) 12.5 gm PRN Q15MIN PRN IV SEE COMMENTS; Start 05/26/21 at 12:30 Acetaminophen (Tylenol) 650 mg PRN Q4HRS PRN PO TEMP OVER 100.4F OR MILD PAIN Last administered on 05/26/21at 14:45; Start 05/26/21 at 12:30 Lorazepam (Ativan) 0.5 mg PRN Q6HRS PRN PO ANXIETY / AGITATION; Start 05/26/21 at 12:30 Lorazepam (Ativan Inj) 0.25 mg PRN Q4HRS PRN IV ANXIETY / AGITATION; Start 05/26/21 at 12:30 Oxycodone/ Acetaminophen (Percocet 5/325) 1 tab PRN Q4HRS PRN PO MILD PAIN, 1ST CHOICE; Start 05/26/21 at 12:30; Stop 05/26/21 at 12:41; Status DC Prochlorperazine Edisylate (Compazine) 10 mg PRN Q6HRS PRN IV NAUSEA/VOMITING- 2nd choice; Start 05/26/21 at 12:30 Zolpidem Tartrate (Ambien) 2.5 mg PRN QHS PRN PO INSOMNIA; Start 05/26/21 at 12:30 Methocarbamol (Robaxin) 500 mg PRN Q8HRS PRN PO BACK PAIN or MUSCLE SPASMS Last administered on 05/30/21at 10:26; Start 05/28/21 at 15:00 Diclofenac Sodium (Voltaren) 1 ema BID TP Last administered on 06/01/21at 22:01; Start 05/29/21 at 12:00 Multi-Ingredient Ointment (Hydrocerin, Eucerin Cream) 1 ema PRN Q1HR PRN TP DRY SKIN / SCALING Last administered on 05/29/21at 23:15; Start 05/29/21 at 11:15 Megestrol Acetate (Megace) 400 mg BID PO Last administered on 06/02/21at 08:40; Start 05/29/21 at 12:00 Methylprednisolone Acetate (DEPO-Medrol 40MG VIAL) 40 mg 1X ONCE IM ; Start 05/29/21 at 12:00; Stop 05/29/21 at 12:01; Status DC Methylprednisolone Acetate (DEPO-Medrol 40MG VIAL) 40 mg 1X ONCE INJ ; Start 05/29/21 at 12:00; Stop 05/29/21 at 12:01; Status DC Bupivacaine HCl (Sensorcaine-Mpf 0.25%) 10 ml 1X ONCE IJ ; Start 05/29/21 at 12:00; Stop 05/29/21 at 12:01; Status DC Iodixanol (Visipaque 320) 100 ml STK-MED ONCE .ROUTE ; Start 05/31/21 at 12:29; Stop 05/31/21 at 12:29; Status DC Lidocaine HCl (Lidocaine 1% 20ml Vial) 20 ml STK-MED ONCE .ROUTE ; Start 05/31/21 at 12:29; Stop 05/31/21 at 12:29; Status DC Heparin Sodium/ Sodium Chloride 500 ml @ As Directed STK-MED ONCE .ROUTE ; Start 05/31/21 at 12:29; Stop 05/31/21 at 12:29; Status DC Midazolam HCl (Versed) 2 mg 1X ONCE IV Last administered on 05/31/21at 15:53; Start 05/31/21 at 12:45; Stop 05/31/21 at 12:46; Status DC Fentanyl Citrate (Fentanyl 2ml Vial) 100 mcg 1X ONCE IV Last administered on 05/31/21at 15:54; Start 05/31/21 at 12:45; Stop 05/31/21 at 12:46; Status DC Iodixanol (Visipaque 320) 100 ml 1X ONCE IART Last administered on 05/31/21at 15:53; Start 05/31/21 at 12:45; Stop 05/31/21 at 12:46; Status DC Lidocaine HCl (Lidocaine 1% 20ml Vial) 20 ml 1X ONCE INJ Last administered on 05/31/21at 15:53; Start 05/31/21 at 12:45; Stop 05/31/21 at 12:46; Status DC Heparin Sodium (Porcine) (Heparin Sodium) 10,000 unit STK-MED ONCE .ROUTE ; Start 05/31/21 at 12:36; Stop 05/31/21 at 12:36; Status DC Info (CONTRAST GIVEN -- Rx MONITORING) 1 each PRN DAILY PRN MC SEE COMMENTS; Start 05/31/21 at 12:45; Stop 06/02/21 at 12:44 Heparin Sodium (Porcine) (Heparin Sodium) 10,000 unit STK-MED ONCE .ROUTE ; Start 05/31/21 at 13:54; Stop 05/31/21 at 13:54; Status DC Nitroglycerin (Nitroglycerin) 4 mg STK-MED ONCE .ROUTE ; Start 05/31/21 at 13:56; Stop 05/31/21 at 13:57; Status DC Diltiazem HCl (Cardizem Iv Push) 25 mg STK-MED ONCE .ROUTE ; Start 05/31/21 at 13:56; Stop 05/31/21 at 13:57; Status DC Heparin Sodium/ Sodium Chloride 500 ml @ As Directed STK-MED ONCE .ROUTE ; Start 05/31/21 at 14:27; Stop 05/31/21 at 14:27; Status DC Iodixanol (Visipaque 320) 100 ml STK-MED ONCE .ROUTE ; Start 05/31/21 at 15:18; Stop 05/31/21 at 15:19; Status DC Heparin Sodium (Porcine) (Heparin Sodium) 9,000 unit 1X ONCE IV Last administered on 05/31/21at 15:56; Start 05/31/21 at 15:30; Stop 05/31/21 at 15:31; Status DC Diltiazem HCl 10 mg/Nitroglycerin 4 mg/Heparin Sodium (Porcine) 51502 unit/ Miscellaneous 20 ml/Sodium Chloride 1,052 ml @ 1,000 mls/hr 1X ONCE INT CAT Last administered on 05/31/21at 15:30; Start 05/31/21 at 15:30; Stop 05/31/21 at 16:33; Status DC Clopidogrel Bisulfate (Plavix) 300 mg 1X ONCE PO Last administered on 05/31/21at 16:00; Start 05/31/21 at 16:00; Stop 05/31/21 at 16:01; Status DC Clopidogrel Bisulfate (Plavix) 75 mg STK-MED ONCE .ROUTE ; Start 05/31/21 at 15:56; Stop 05/31/21 at 15:56; Status DC Sodium Chloride 1,000 ml @ 75 mls/hr [id number] IV Last administered on 06/02/21at 08:42; Start 05/31/21 at 16:15 Clopidogrel Bisulfate (Plavix) 75 mg DAILYWBKFT PO Last administered on 1at 08:41; Start 06/01/21 at 08:00 Apixaban (Eliquis) 5 mg BID PO Last administered on 06/02/21at 08:41; Start 06/01/21 at 09:00 Nitroglycerin (Nitroglycerin) 4 mg STK-MED ONCE .ROUTE ; Start 05/31/21 at 14:00; Stop 06/02/21 at 08:51; Status DC Active Scripts Active Reported Spironolactone 25 Mg Tablet 25 Mg PO DAILY Pantoprazole Sodium (Pantoprazole Sodium) 40 Mg Tablet.dr 40 Mg PO DAILYAC Levetiracetam 750 Mg Tab.er.24h 750 Mg PO DAILY Hydralazine Hcl 25 Mg Tablet 25 Mg PO DAILY Eliquis (Apixaban) 2.5 Mg Tablet 2.5 Mg PO BID Diltiazem 24HR Cd (Diltiazem Hcl) 180 Mg Cap.er.24h 180 Mg PO DAILY Losartan Potassium 100 Mg Tablet 100 Mg PO DAILY Betimol (Timolol) 5 Ml Drops 5 Ml OP BID LAST DOSE: 09/02/15 AM NEXT DOSE: 09/02/15 PM Potassium Chloride 20 Meq Tab.er.prt 2 Tab PO DAILYWBKFT LAST DOSE: 09/02/15 BREAKFAST NEXT DOSE: 09/03/15 BREAKFAST NITROGLYCERIN SubLingual (Nitroglycerin) 0.4 Mg Tab.subl 1 Tab SL UD Latanoprost 2.5 Ml Drops 1 Drop EACHEYE QHS LAST DOSE: 09/01/15 BEDTIME NEXT DOSE: 09/02/15 BEDTIME Lasix (Furosemide) 40 Mg Tablet 1 Tab PO DAILY LAST DOSE: 09/02/15 AM NEXT DOSE: 09/03/15 AM Toviaz (Fesoterodine Fumarate) 4 Mg Tab.er.24h 1 Tab PO DAILY NEXT DOSE: 09/03/15 AM Nexium Capsule (Esomeprazole Magnesium) 40 Mg Capsule. 1 Cap PO DAILY LAST DOSE: 09/02/15 AM NEXT DOSE: 09/03/15 AM Cardura (Doxazosin Mesylate) 4 Mg Tablet 1 Tab PO HS LAST DOSE: 09/01/15 BEDTIME NEXT DOSE: 09/02/15 BEDTIME Coreg (Carvedilol) 25 Mg Tablet 1 Tab PO BID LAST DOSE: 09/02/15 AM NEXT DOSE: 09/02/15 PM Alphagan P (Brimonidine Tartrate) 5 Ml Drops 1 Drop EACHEYE BID LAST DOSE: 09/02/15 AM NEXT DOSE: 09/02/15 PM Atorvastatin Calcium 20 Mg Tablet 20 Mg PO HS LAST DOSE: 09/01/15 BEDTIME NEXT DOSE: 09/02/15 BEDTIME Aspir 81 (Aspirin) 81 Mg Tablet. 1 Tab PO DAILY LAST DOSE: 09/02/15 AM NEXT DOSE: 09/03/15 AM Amiodarone Hcl 200 Mg Tablet 100 Tab PO DAILY LAST DOSE: 09/02/15 AM NEXT DOSE: 09/03/15 AM Acetaminophen 500 Mg Tablet 2 Tab PO BID LAST DOSE: 09/02/15 AM NEXT DOSE: 1/13/16 PM Vitals/I & O Vital Sign - Last 24 Hours 06/01/21 06/01/21 06/01/21 06/01/21 11:00 15:00 16:30 19:00 Temp 97.8 98.6 98.5 97.8 98.6 98.5 Pulse 70 77 77 68 Resp 17 17 16 B/P (MAP) 116/49 (71) 113/71 (85) 113/71 126/39 (68) Pulse Ox 99 98 97 O2 Delivery Room Air Room Air Room Air O2 Flow Rate 2.0 06/01/21 06/01/21 06/02/21 06/02/21 19:25 23:00 03:50 08:41 Temp 98.0 98.0 98.0 98.0 Pulse 69 68 68 Resp 16 16 B/P (MAP) 118/51 (73) 119/57 (77) 119/57 Pulse Ox 97 99 O2 Delivery Room Air Room Air Room Air O2 Flow Rate 2.0 2.0 06/02/21 08:41 Pulse 68 B/P (MAP) 119/57 Intake and Output 06/01/21 06/01/21 06/02/21 15:00 23:00 07:00 Intake Total 500 ml 0 ml 120 ml Balance 500 ml 0 ml 120 ml Justifications for Admission Other Justification Debilitation adn generalized weakness PHIL MARCANO MD Jun 02, 2021 09:03
--- NOTE | 2021-06-02 09:19 | PDOC ---
PROGRESS NOTES Date of Service DATE: 06/02/21 TIME: 09:14 Subjective Subjective He c/o pain inn his feet,especially right. Objective Objective Vital Signs Date Time Temp Pulse Resp B/P (MAP) Pulse Ox O2 Delivery O2 Flow Rate FiO2 06/02/21 08:41 68 119/57 06/02/21 07:00 97.4 16 93 Room Air 97.4 06/02/21 03:50 2.0 Intake and Output 06/02/21 07:00 Intake Total 620 ml Balance 620 ml Intake Oral 620 ml # Voids 2 # Bowel Movements 2 Physical Exam Physical Exam He is supine in bed and trying to chew food in his mouth and takes long time to chew and he is not eating much. He had Rooke boots in place to his feet and he refused participating with therapy yesterday. Plan Plan of Care To continue present wound care and when medically stable to transfer to a SNF or LTAC unit if he qualifies,otherwise to alf nursing facility as his who is in a wheel chair is not in a position to take care of him. Comment Review of Relevant I have reviewed the following items shelby (where applicable) has been applied. Labs Laboratory Tests Test 05/31/21 09:58 05/31/21 10:58 05/31/21 15:00 05/31/21 17:38 Prothrombin Time 15.5 SEC (11.7-14.0) Prothromb Time International Ratio 1.2 (0.8-1.1) Glucose (Fingerstick) 90 mg/dL (70-99) 79 mg/dL (70-99) Activated Clotting Time 259 sec (92-181) Test 06/01/21 07:30 06/01/21 08:13 06/01/21 11:26 06/01/21 17:06 White Blood Count 12.4 x10^3/uL (4.0-11.0) Red Blood Count 3.04 x10^6/uL (4.30-5.70) Hemoglobin 8.9 g/dL (13.0-17.5) Hematocrit 27.4 % (39.0-53.0) Mean Corpuscular Volume 90 fL (79-100) Mean Corpuscular Hemoglobin 29 pg (25-35) Mean Corpuscular Hemoglobin Concent 33 g/dL (31-37) Red Cell Distribution Width 18.8 % (11.5-14.5) Platelet Count 240 x10^3/uL (140-400) Neutrophils (%) (Auto) 79 % (31-73) Lymphocytes (%) (Auto) 10 % (24-48) Monocytes (%) (Auto) 10 % (0-9) Eosinophils (%) (Auto) 0 % (0-3) Basophils (%) (Auto) 1 % (0-3) Neutrophils # (Auto) 9.8 x10^3/uL (1.8-7.7) Lymphocytes # (Auto) 1.2 x10^3/uL (1.0-4.8) Monocytes # (Auto) 1.3 x10^3/uL (0.0-1.1) Eosinophils # (Auto) 0.1 x10^3/uL (0.0-0.7) Basophils # (Auto) 0.1 x10^3/uL (0.0-0.2) Sodium Level 141 mmol/L (136-145) Potassium Level 4.2 mmol/L (3.5-5.1) Chloride Level 107 mmol/L (98-107) Carbon Dioxide Level 16 mmol/L (21-32) Anion Gap 18 (6-14) Blood Urea Nitrogen 21 mg/dL (8-26) Creatinine 0.8 mg/dL (0.7-1.3) Estimated GFR (Cockcroft-Gault) 110.4 Glucose Level 69 mg/dL (70-99) Calcium Level 7.8 mg/dL (8.5-10.1) Glucose (Fingerstick) 71 mg/dL (70-99) 133 mg/dL (70-99) 112 mg/dL (70-99) Test 06/01/21 19:48 06/02/21 06:20 06/02/21 07:51 Glucose (Fingerstick) 111 mg/dL (70-99) 82 mg/dL (70-99) Sodium Level 139 mmol/L (136-145) Potassium Level 3.4 mmol/L (3.5-5.1) Chloride Level 108 mmol/L (98-107) Carbon Dioxide Level 21 mmol/L (21-32) Anion Gap 10 (6-14) Blood Urea Nitrogen 17 mg/dL (8-26) Creatinine 0.7 mg/dL (0.7-1.3) Estimated GFR (Cockcroft-Gault) 128.8 Glucose Level 75 mg/dL (70-99) Calcium Level 8.0 mg/dL (8.5-10.1) Laboratory Tests Test 06/01/21 11:26 06/01/21 17:06 06/01/21 19:48 06/02/21 06:20 Glucose (Fingerstick) 133 mg/dL (70-99) 112 mg/dL (70-99) 111 mg/dL (70-99) Sodium Level 139 mmol/L (136-145) Potassium Level 3.4 mmol/L (3.5-5.1) Chloride Level 108 mmol/L (98-107) Carbon Dioxide Level 21 mmol/L (21-32) Anion Gap 10 (6-14) Blood Urea Nitrogen 17 mg/dL (8-26) Creatinine 0.7 mg/dL (0.7-1.3) Estimated GFR (Cockcroft-Gault) 128.8 Glucose Level 75 mg/dL (70-99) Calcium Level 8.0 mg/dL (8.5-10.1) Test 06/02/21 07:51 Glucose (Fingerstick) 82 mg/dL (70-99) Medications Current Medications Amiodarone HCl (Cordarone) 200 mg DAILY PO Last administered on 06/02/21 08:41; Start 05/26/21 at 13:00 Apixaban (Eliquis) 2.5 mg BID PO Last administered on 05/28/21at 22:49; Start 05/26/21 at 21:00; Stop 05/29/21 at 10:34; Status DC Aspirin (Ecotrin) 81 mg DAILY PO Last administered on 06/02/21 08:40; Start 05/26/21 at 13:00 Atorvastatin Calcium (Lipitor) 20 mg HS PO Last administered on 06/01/21 22:00; Start 05/26/21 at 21:00 Latanoprost (Xalatan) 1 drop QHS OU Last administered on 06/01/21 22:01; Start 05/26/21 at 21:00 Pantoprazole Sodium (Protonix) 40 mg DAILYAC PO Last administered on 06/02/21at 08:41; Start 05/26/21 at 16:30 Brimonidine Tartrate (Alphagan) 1 drop BID OU Last administered on 06/01/21at 22:01; Start 05/26/21 at 21:00 Carvedilol (Coreg) 25 mg BIDWMEALS PO Last administered on 06/02/21at 08:41; Start 05/26/21 at 17:00 Levetiracetam (Keppra Oral Soln) 375 mg BID PO Last administered on 06/02/21at 08:40; Start 05/26/21 at 21:00 Timolol Maleate (Timoptic 0.5% Oph) 1 drop BID OD Last administered on 06/01/21at 22:01; Start 05/26/21 at 21:00 Sennosides (Senna) 17.2 mg PRN BID PRN PO CONSTIPATION; Start 05/26/21 at 12:30 Docusate Sodium (Colace) 100 mg PRN DAILY PRN PO HARD STOOLS; Start 05/26/21 at 12:30 Ondansetron HCl (Zofran) 4 mg PRN Q6HRS PRN IVP NAUSEA/VOMITING; Start 05/26/21 at 12:30 Insulin Human Lispro (HumaLOG) 0-7 UNITS TIDWMEALS SQ ; Start 05/26/21 at 17:00; Stop 05/28/21 at 08:22; Status DC Dextrose (Dextrose 50%-Water Syringe) 12.5 gm PRN Q15MIN PRN IV SEE COMMENTS; Start 05/26/21 at 12:30 Acetaminophen (Tylenol) 650 mg PRN Q4HRS PRN PO TEMP OVER 100.4F OR MILD PAIN Last administered on 05/26/21at 14:45; Start 05/26/21 at 12:30 Lorazepam (Ativan) 0.5 mg PRN Q6HRS PRN PO ANXIETY / AGITATION; Start 05/26/21 at 12:30 Lorazepam (Ativan Inj) 0.25 mg PRN Q4HRS PRN IV ANXIETY / AGITATION; Start 05/26/21 at 12:30 Oxycodone/ Acetaminophen (Percocet 5/325) 1 tab PRN Q4HRS PRN PO MILD PAIN, 1ST CHOICE; Start 05/26/21 at 12:30; Stop 05/26/21 at 12:41; Status DC Prochlorperazine Edisylate (Compazine) 10 mg PRN Q6HRS PRN IV NAUSEA/VOMITING- 2nd choice; Start 05/26/21 at 12:30 Zolpidem Tartrate (Ambien) 2.5 mg PRN QHS PRN PO INSOMNIA; Start 05/26/21 at 12:30 Methocarbamol (Robaxin) 500 mg PRN Q8HRS PRN PO BACK PAIN or MUSCLE SPASMS Last administered on 05/30/21at 10:26; Start 05/28/21 at 15:00 Diclofenac Sodium (Voltaren) 1 ema BID TP Last administered on 06/01/21at 22:01; Start 05/29/21 at 12:00 Multi-Ingredient Ointment (Hydrocerin, Eucerin Cream) 1 ema PRN Q1HR PRN TP DRY SKIN / SCALING Last administered on 05/29/21at 23:15; Start 05/29/21 at 11:15 Megestrol Acetate (Megace) 400 mg BID PO Last administered on 06/02/21at 08:40; Start 05/29/21 at 12:00 Methylprednisolone Acetate (DEPO-Medrol 40MG VIAL) 40 mg 1X ONCE IM ; Start 05/29/21 at 12:00; Stop 05/29/21 at 12:01; Status DC Methylprednisolone Acetate (DEPO-Medrol 40MG VIAL) 40 mg 1X ONCE INJ ; Start 05/29/21 at 12:00; Stop 05/29/21 at 12:01; Status DC Bupivacaine HCl (Sensorcaine-Mpf 0.25%) 10 ml 1X ONCE IJ ; Start 05/29/21 at 12:00; Stop 05/29/21 at 12:01; Status DC Iodixanol (Visipaque 320) 100 ml STK-MED ONCE .ROUTE ; Start 05/31/21 at 12:29; Stop 05/31/21 at 12:29; Status DC Lidocaine HCl (Lidocaine 1% 20ml Vial) 20 ml STK-MED ONCE .ROUTE ; Start 05/31/21 at 12:29; Stop 05/31/21 at 12:29; Status DC Heparin Sodium/ Sodium Chloride 500 ml @ As Directed STK-MED ONCE .ROUTE ; Start 05/31/21 at 12:29; Stop 05/31/21 at 12:29; Status DC Midazolam HCl (Versed) 2 mg 1X ONCE IV Last administered on 05/31/21at 15:53; Start 05/31/21 at 12:45; Stop 05/31/21 at 12:46; Status DC Fentanyl Citrate (Fentanyl 2ml Vial) 100 mcg 1X ONCE IV Last administered on 05/31/21at 15:54; Start 05/31/21 at 12:45; Stop 05/31/21 at 12:46; Status DC Iodixanol (Visipaque 320) 100 ml 1X ONCE IART Last administered on 05/31/21at 15:53; Start 05/31/21 at 12:45; Stop 05/31/21 at 12:46; Status DC Lidocaine HCl (Lidocaine 1% 20ml Vial) 20 ml 1X ONCE INJ Last administered on 05/31/21at 15:53; Start 05/31/21 at 12:45; Stop 05/31/21 at 12:46; Status DC Heparin Sodium (Porcine) (Heparin Sodium) 10,000 unit STK-MED ONCE .ROUTE ; Start 05/31/21 at 12:36; Stop 05/31/21 at 12:36; Status DC Info (CONTRAST GIVEN -- Rx MONITORING) 1 each PRN DAILY PRN MC SEE COMMENTS; Start 05/31/21 at 12:45; Stop 06/02/21 at 12:44 Heparin Sodium (Porcine) (Heparin Sodium) 10,000 unit STK-MED ONCE .ROUTE ; Start 05/31/21 at 13:54; Stop 05/31/21 at 13:54; Status DC Nitroglycerin (Nitroglycerin) 4 mg STK-MED ONCE .ROUTE ; Start 05/31/21 at 13:56; Stop 05/31/21 at 13:57; Status DC Diltiazem HCl (Cardizem Iv Push) 25 mg STK-MED ONCE .ROUTE ; Start 05/31/21 at 13:56; Stop 05/31/21 at 13:57; Status DC Heparin Sodium/ Sodium Chloride 500 ml @ As Directed STK-MED ONCE .ROUTE ; Start 05/31/21 at 14:27; Stop 05/31/21 at 14:27; Status DC Iodixanol (Visipaque 320) 100 ml STK-MED ONCE .ROUTE ; Start 05/31/21 at 15:18; Stop 05/31/21 at 15:19; Status DC Heparin Sodium (Porcine) (Heparin Sodium) 9,000 unit 1X ONCE IV Last administered on 05/31/21at 15:56; Start 05/31/21 at 15:30; Stop 05/31/21 at 15:31; Status DC Diltiazem HCl 10 mg/Nitroglycerin 4 mg/Heparin Sodium (Porcine) 22083 unit/ Miscellaneous 20 ml/Sodium Chloride 1,052 ml @ 1,000 mls/hr 1X ONCE INT CAT Last administered on 05/31/21at 15:30; Start 05/31/21 at 15:30; Stop 05/31/21 at 16:33; Status DC Clopidogrel Bisulfate (Plavix) 300 mg 1X ONCE PO Last administered on 05/31/21at 16:00; Start 05/31/21 at 16:00; Stop 05/31/21 at 16:01; Status DC Clopidogrel Bisulfate (Plavix) 75 mg STK-MED ONCE .ROUTE ; Start 05/31/21 at 15:56; Stop 05/31/21 at 15:56; Status DC Sodium Chloride 1,000 ml @ 75 mls/hr [id number] IV Last administered on 06/02/21at 08:42; Start 05/31/21 at 16:15 Clopidogrel Bisulfate (Plavix) 75 mg DAILYWBKFT PO Last administered on 06/02/21at 08:41; Start 06/01/21 at 08:00 Apixaban (Eliquis) 5 mg BID PO Last administered on 06/02/21at 08:41; Start 06/01/21 at 09:00 Nitroglycerin (Nitroglycerin) 4 mg STK-MED ONCE .ROUTE ; Start 05/31/21 at 14:00; Stop 06/02/21 at 08:51; Status DC Active Scripts Active Reported Spironolactone 25 Mg Tablet 25 Mg PO DAILY Pantoprazole Sodium (Pantoprazole Sodium) 40 Mg Tablet.dr 40 Mg PO DAILYAC Levetiracetam 750 Mg Tab.er.24h 750 Mg PO DAILY Hydralazine Hcl 25 Mg Tablet 25 Mg PO DAILY Eliquis (Apixaban) 2.5 Mg Tablet 2.5 Mg PO BID Diltiazem 24HR Cd (Diltiazem Hcl) 180 Mg Cap.er.24h 180 Mg PO DAILY Losartan Potassium 100 Mg Tablet 100 Mg PO DAILY Betimol (Timolol) 5 Ml Drops 5 Ml OP BID LAST DOSE: 09/02/15 AM NEXT DOSE: 09/02/15 PM Potassium Chloride 20 Meq Tab.er.prt 2 Tab PO DAILYWBKFT LAST DOSE: 09/02/15 BREAKFAST NEXT DOSE: 09/03/15 BREAKFAST NITROGLYCERIN SubLingual (Nitroglycerin) 0.4 Mg Tab.subl 1 Tab SL UD Latanoprost 2.5 Ml Drops 1 Drop EACHEYE QHS LAST DOSE: 09/01/15 BEDTIME NEXT DOSE: 09/02/15 BEDTIME Lasix (Furosemide) 40 Mg Tablet 1 Tab PO DAILY LAST DOSE: 09/02/15 AM NEXT DOSE: 09/03/15 AM Toviaz (Fesoterodine Fumarate) 4 Mg Tab.er.24h 1 Tab PO DAILY NEXT DOSE: 09/03/15 AM Nexium Capsule (Esomeprazole Magnesium) 40 Mg Capsule. 1 Cap PO DAILY LAST DOSE: 09/02/15 AM NEXT DOSE: 09/03/15 AM Cardura (Doxazosin Mesylate) 4 Mg Tablet 1 Tab PO HS LAST DOSE: 09/01/15 BEDTIME NEXT DOSE: 09/02/15 BEDTIME Coreg (Carvedilol) 25 Mg Tablet 1 Tab PO BID LAST DOSE: 09/02/15 AM NEXT DOSE: 09/02/15 PM Alphagan P (Brimonidine Tartrate) 5 Ml Drops 1 Drop EACHEYE BID LAST DOSE: 09/02/15 AM NEXT DOSE: 09/02/15 PM Atorvastatin Calcium 20 Mg Tablet 20 Mg PO HS LAST DOSE: 09/01/15 BEDTIME NEXT DOSE: 09/02/15 BEDTIME Aspir 81 (Aspirin) 81 Mg Tablet. 1 Tab PO DAILY LAST DOSE: 09/02/15 AM NEXT DOSE: 09/03/15 AM Amiodarone Hcl 200 Mg Tablet 100 Tab PO DAILY LAST DOSE: 09/02/15 AM NEXT DOSE: 09/03/15 AM Acetaminophen 500 Mg Tablet 2 Tab PO BID LAST DOSE: 09/02/15 AM NEXT DOSE: 09/02/15 PM Vitals/I & O Vital Sign - Last 24 Hours 06/01/21 06/01/21 06/01/21 06/01/21 11:00 15:00 16:30 19:00 Temp 97.8 98.6 98.5 97.8 98.6 98.5 Pulse 70 77 77 68 Resp 17 17 16 B/P (MAP) 116/49 (71) 113/71 (85) 113/71 126/39 (68) Pulse Ox 99 98 97 O2 Delivery Room Air Room Air Room Air O2 Flow Rate 2.0 06/01/21 06/01/21 06/02/21 06/02/21 19:25 23:00 03:50 07:00 Temp 98.0 98.0 97.4 98.0 98.0 97.4 Pulse 69 68 71 Resp 16 16 16 B/P (MAP) 118/51 (73) 119/57 (77) 135/54 (81) Pulse Ox 97 99 93 O2 Delivery Room Air Room Air Room Air Room Air O2 Flow Rate 2.0 2.0 06/02/21 06/02/21 08:41 08:41 Pulse 68 68 B/P (MAP) 119/57 119/57 Intake and Output 06/01/21 06/01/21 06/02/21 15:00 23:00 07:00 Intake Total 500 ml 0 ml 120 ml Balance 500 ml 0 ml 120 ml Justifications for Admission Other Justification Debilitation adn generalized weakness DAVID SAUNDERS MD Jun 02, 2021 09:19
[2021-06-02 11:00] VITALS: BP 114/46
[2021-06-02] MEDS ORDERED: POTASSIUM CHLORIDE 20 MEQ TABLET.ER. PO ONE (11:00)
--- NOTE | 2021-06-02 13:14 | NUR ---
SS following up with discharge planning. SS reviewed pt chart and discussed with pt RN. Pt is currently on room air. COVID19 negative. Pt has multiple wounds. Rook boots in place. Pt has P500 bed. Wound care following. Physicians requesting referral to [facility], ; fax [phone], at this time. Demographics phoned and faxed to [facility] to check REV Codes. Per Dr. Carlos, pt reports having bad experiences at [place] [facility] and [facility]. SS will await communication from [facility] and will continue to follow for discharge planning. Addendum: 06/02/21 at 1623 by BINH SHI SS was notified that pt has no REV Codes for LTACH. Physician notified.
[2021-06-02] MEDS: ANTI-COAG MONITOR BY PHARMACY. MC PRN (13:48)
--- NOTE | 2021-06-02 13:50 | PDOC2 ---
CONSULT Date of Consult Date of Consult DATE: 06/02/21 TIME: 13:34 Reason for Consult Reason for Consult: nail trim Referring Physician Referring Physician: Shameka Identification/Chief Complaint Chief Complaint long thick toenails Source Source: Chart review, Patient History of Present Illness Reason for Visit: 89 year old male admitted for failure to thrive seen bedside resting comfortably. He had multiple decubitus ulcerations to feet/ankles being treated by wound care. Podiatry consulted for nail trim Past Medical History Cardiovascular: CAD, CHF, HTN Pulmonary: No pertinent hx, COPD Musculoskeletal: low back pain Rheumatologic: No pertinent hx Past Surgical History Past Surgical History: Pacemaker, Other Family History Family History: Asthma, Heart Disease Social History ALCOHOL: none Drugs: None Current Medications Current Medications Current Medications Amiodarone HCl (Cordarone) 200 mg DAILY PO Last administered on 06/02/21 08:41; Start 05/26/21 at 13:00 Apixaban (Eliquis) 2.5 mg BID PO Last administered on 05/28/21at 22:49; Start 05/26/21 at 21:00; Stop 05/29/21 at 10:34; Status DC Aspirin (Ecotrin) 81 mg DAILY PO Last administered on 06/02/21 08:40; Start 05/26/21 at 13:00 Atorvastatin Calcium (Lipitor) 20 mg HS PO Last administered on 06/01/21at 22:00; Start 05/26/21 at 21:00 Latanoprost (Xalatan) 1 drop QHS OU Last administered on 06/01/21at 22:01; Start 05/26/21 at 21:00 Pantoprazole Sodium (Protonix) 40 mg DAILYAC PO Last administered on 06/02/21 08:41; Start 05/26/21 at 16:30 Brimonidine Tartrate (Alphagan) 1 drop BID OU Last administered on 06/02/21 09:00; Start 05/26/21 at 21:00 Carvedilol (Coreg) 25 mg BIDWMEALS PO Last administered on 06/02/21 08:41; Start 05/26/21 at 17:00 Levetiracetam (Keppra Oral Soln) 375 mg BID PO Last administered on 06/02/21at 08:40; Start 05/26/21 at 21:00 Timolol Maleate (Timoptic 0.5% Ophth) 1 drop BID OD Last administered on 06/02/21at 09:00; Start 05/26/21 at 21:00 Sennosides (Senna) 17.2 mg PRN BID PRN PO CONSTIPATION; Start 05/26/21 at 12:30 Docusate Sodium (Colace) 100 mg PRN DAILY PRN PO HARD STOOLS; Start 05/26/21 at 12:30 Ondansetron HCl (Zofran) 4 mg PRN Q6HRS PRN IVP NAUSEA/VOMITING; Start 05/26/21 at 12:30 Insulin Human Lispro (HumaLOG) 0-7 UNITS TIDWMEALS SQ ; Start 05/26/21 at 17:00; Stop 05/28/21 at 08:22; Status DC Dextrose (Dextrose 50%-Water Syringe) 12.5 gm PRN Q15MIN PRN IV SEE COMMENTS; Start 05/26/21 at 12:30 Acetaminophen (Tylenol) 650 mg PRN Q4HRS PRN PO TEMP OVER 100.4F OR MILD PAIN Last administered on 05/26/21at 14:45; Start 05/26/21 at 12:30 Lorazepam (Ativan) 0.5 mg PRN Q6HRS PRN PO ANXIETY / AGITATION; Start 05/26/21 at 12:30 Lorazepam (Ativan Inj) 0.25 mg PRN Q4HRS PRN IV ANXIETY / AGITATION; Start 05/26/21 at 12:30 Oxycodone/ Acetaminophen (Percocet 5/325) 1 tab PRN Q4HRS PRN PO MILD PAIN, 1ST CHOICE; Start 05/26/21 at 12:30; Stop 05/26/21 at 12:41; Status DC Prochlorperazine Edisylate (Compazine) 10 mg PRN Q6HRS PRN IV NAUSEA/VOMITING- 2nd choice; Start 05/26/21 at 12:30 Zolpidem Tartrate (Ambien) 2.5 mg PRN QHS PRN PO INSOMNIA; Start 05/26/21 at 12:30 Methocarbamol (Robaxin) 500 mg PRN Q8HRS PRN PO BACK PAIN or MUSCLE SPASMS Last administered on 05/30/21at 10:26; Start 05/28/21 at 15:00 Diclofenac Sodium (Voltaren) 1 ema BID TP Last administered on 06/02/21at 09:00; Start 05/29/21 at 12:00 Multi-Ingredient Ointment (Hydrocerin, Eucerin Cream) 1 ema PRN Q1HR PRN TP DRY SKIN / SCALING Last administered on 05/29/21at 23:15; Start 05/29/21 at 11:15 Megestrol Acetate (Megace) 400 mg BID PO Last administered on 06/02/21at 08:40; Start 05/29/21 at 12:00 Methylprednisolone Acetate (DEPO-Medrol 40MG VIAL) 40 mg 1X ONCE IM ; Start 05/29/21 at 12:00; Stop 05/29/21 at 12:01; Status DC Methylprednisolone Acetate (DEPO-Medrol 40MG VIAL) 40 mg 1X ONCE INJ ; Start 05/29/21 at 12:00; Stop 05/29/21 at 12:01; Status DC Bupivacaine HCl (Sensorcaine-Mpf 0.25%) 10 ml 1X ONCE IJ ; Start 05/29/21 at 12:00; Stop 05/29/21 at 12:01; Status DC Iodixanol (Visipaque 320) 100 ml STK-MED ONCE .ROUTE ; Start 05/31/21 at 12:29; Stop 05/31/21 at 12:29; Status DC Lidocaine HCl (Lidocaine 1% 20ml Vial) 20 ml STK-MED ONCE .ROUTE ; Start 05/31/21 at 12:29; Stop 05/31/21 at 12:29; Status DC Heparin Sodium/ Sodium Chloride 500 ml @ As Directed STK-MED ONCE .ROUTE ; Start 05/31/21 at 12:29; Stop 05/31/21 at 12:29; Status DC Midazolam HCl (Versed) 2 mg 1X ONCE IV Last administered on 05/31/21at 15:53; Start 05/31/21 at 12:45; Stop 05/31/21 at 12:46; Status DC Fentanyl Citrate (Fentanyl 2ml Vial) 100 mcg 1X ONCE IV Last administered on 05/31/21at 15:54; Start 05/31/21 at 12:45; Stop 05/31/21 at 12:46; Status DC Iodixanol (Visipaque 320) 100 ml 1X ONCE IART Last administered on 05/31/21at 15:53; Start 05/31/21 at 12:45; Stop 05/31/21 at 12:46; Status DC Lidocaine HCl (Lidocaine 1% 20ml Vial) 20 ml 1X ONCE INJ Last administered on 05/31/21at 15:53; Start 05/31/21 at 12:45; Stop 05/31/21 at 12:46; Status DC Heparin Sodium (Porcine) (Heparin Sodium) 10,000 unit STK-MED ONCE .ROUTE ; Start 05/31/21 at 12:36; Stop 05/31/21 at 12:36; Status DC Info (CONTRAST GIVEN -- Rx MONITORING) 1 each PRN DAILY PRN MC SEE COMMENTS; Start 05/31/21 at 12:45; Stop 06/02/21 at 12:44; Status DC Heparin Sodium (Porcine) (Heparin Sodium) 10,000 unit STK-MED ONCE .ROUTE ; Start 05/31/21 at 13:54; Stop 05/31/21 at 13:54; Status DC Nitroglycerin (Nitroglycerin) 4 mg STK-MED ONCE .ROUTE ; Start 05/31/21 at 13:56; Stop 05/31/21 at 13:57; Status DC Diltiazem HCl (Cardizem Iv Push) 25 mg STK-MED ONCE .ROUTE ; Start 05/31/21 at 13:56; Stop 05/31/21 at 13:57; Status DC Heparin Sodium/ Sodium Chloride 500 ml @ As Directed STK-MED ONCE .ROUTE ; Start 05/31/21 at 14:27; Stop 05/31/21 at 14:27; Status DC Iodixanol (Visipaque 320) 100 ml STK-MED ONCE .ROUTE ; Start 05/31/21 at 15:18; Stop 05/31/21 at 15:19; Status DC Heparin Sodium (Porcine) (Heparin Sodium) 9,000 unit 1X ONCE IV Last administered on 05/31/21at 15:56; Start 05/31/21 at 15:30; Stop 05/31/21 at 15:31; Status DC Diltiazem HCl 10 mg/Nitroglycerin 4 mg/Heparin Sodium (Porcine) 42595 unit/ Miscellaneous 20 ml/Sodium Chloride 1,052 ml @ 1,000 mls/hr 1X ONCE INT CAT Last administered on 05/31/21at 15:30; Start 05/31/21 at 15:30; Stop 05/31/21 at 16:33; Status DC Clopidogrel Bisulfate (Plavix) 300 mg 1X ONCE PO Last administered on 05/31/21at 16:00; Start 05/31/21 at 16:00; Stop 05/31/21 at 16:01; Status DC Clopidogrel Bisulfate (Plavix) 75 mg STK-MED ONCE .ROUTE ; Start 05/31/21 at 15:56; Stop 05/31/21 at 15:56; Status DC Sodium Chloride 1,000 ml @ 75 mls/hr [id number] IV Last administered on 06/02/21at 08:42; Start 05/31/21 at 16:15 Clopidogrel Bisulfate (Plavix) 75 mg DAILYWBKFT PO Last administered on at 08:41; Start 06/01/21 at 08:00 Apixaban (Eliquis) 5 mg BID PO Last administered on 06/02/21at 08:41; Start 06/01/21 at 09:00 Nitroglycerin (Nitroglycerin) 4 mg STK-MED ONCE .ROUTE ; Start 05/31/21 at 14:00; Stop 06/02/21 at 08:51; Status DC Potassium Chloride (Klor-Con) 40 meq 1X ONCE PO Last administered on 06/02/21at 13:05; Start 06/02/21 at 11:00; Stop 06/02/21 at 11:01; Status DC Active Scripts Active Reported Spironolactone 25 Mg Tablet 25 Mg PO DAILY Pantoprazole Sodium (Pantoprazole Sodium) 40 Mg Tablet.dr 40 Mg PO DAILYAC Levetiracetam 750 Mg Tab.er.24h 750 Mg PO DAILY Hydralazine Hcl 25 Mg Tablet 25 Mg PO DAILY Eliquis (Apixaban) 2.5 Mg Tablet 2.5 Mg PO BID Diltiazem 24HR Cd (Diltiazem Hcl) 180 Mg Cap.er.24h 180 Mg PO DAILY Losartan Potassium 100 Mg Tablet 100 Mg PO DAILY Betimol (Timolol) 5 Ml Drops 5 Ml OP BID LAST DOSE: 09/02/15 AM NEXT DOSE: 09/02/15 PM Potassium Chloride 20 Meq Tab.er.prt 2 Tab PO DAILYWBKFT LAST DOSE: 09/02/15 BREAKFAST NEXT DOSE: 09/03/15 BREAKFAST NITROGLYCERIN SubLingual (Nitroglycerin) 0.4 Mg Tab.subl 1 Tab SL UD Latanoprost 2.5 Ml Drops 1 Drop EACHEYE QHS LAST DOSE: 09/01/15 BEDTIME NEXT DOSE: 09/02/15 BEDTIME Lasix (Furosemide) 40 Mg Tablet 1 Tab PO DAILY LAST DOSE: 09/02/15 AM NEXT DOSE: 09/03/15 AM Toviaz (Fesoterodine Fumarate) 4 Mg Tab.er.24h 1 Tab PO DAILY NEXT DOSE: 09/03/15 AM Nexium Capsule (Esomeprazole Magnesium) 40 Mg Capsule.dr 1 Cap PO DAILY LAST DOSE: 09/02/15 AM NEXT DOSE: 09/03/15 AM Cardura (Doxazosin Mesylate) 4 Mg Tablet 1 Tab PO HS LAST DOSE: 09/01/15 BEDTIME NEXT DOSE: 09/02/15 BEDTIME Coreg (Carvedilol) 25 Mg Tablet 1 Tab PO BID LAST DOSE: 09/02/15 AM NEXT DOSE: 09/02/15 PM Alphagan P (Brimonidine Tartrate) 5 Ml Drops 1 Drop EACHEYE BID LAST DOSE: 09/02/15 AM NEXT DOSE: 09/02/15 PM Atorvastatin Calcium 20 Mg Tablet 20 Mg PO HS LAST DOSE: 09/01/15 BEDTIME NEXT DOSE: 09/02/15 BEDTIME Aspir 81 (Aspirin) 81 Mg Tablet. 1 Tab PO DAILY LAST DOSE: 09/02/15 AM NEXT DOSE: 09/03/15 AM Amiodarone Hcl 200 Mg Tablet 100 Tab PO DAILY LAST DOSE: 09/02/15 AM NEXT DOSE: 09/03/15 AM Acetaminophen 500 Mg Tablet 2 Tab PO BID LAST DOSE: 09/02/15 AM NEXT DOSE: 09/02/15 PM Allergies Allergies: Coded Allergies: oxycodone (Verified Allergy, Intermediate, 06/16/15) ROS General: YES: Fatigue, Appetite (decreased) Eyes: No Blurry vision, No Decreased vision, No Double vision, No Dry eyes, No Excessive tearing, No Eye Pain, No Itchy Eyes, No Loss of vision, No Photophobia, No Scotomata, No Uses contacts, No Uses glasses, No Other HEENT: No: Heacaches, Visual Changes, Hearing change, Nasal congestion, Nasal discharge, Oral lesions, Sinus pain, Sore Throat, Epistaxis, Sneezing, Snoring, Tinnitus, Vertigo, Vocal changes, Other ALLERGY AND IMMUNOLOGY: No: Hives, Insect Bite Sensitivity, Itchy/Watery Eyes, Nasal Congestion, Post Nasal Drip, Seasonal Allergies, Other Hematological and Lymphatic: No: Bleeding Problems, Blood Clots, Blood Transfusions, Brusing, Night Sweats, Pallor, Swollen Lymph Nodes, Other Breast: No New/Changing Breast Lumps, No Nipple changes, No Nipple discharge, No Other Respiratory: No: Cough, Hemoptysis, Orthopnea, Pleuritic Pain, Shortness of breath, SOB with excertion, Sputum Changes, Stridor, Tachypnea, Wheezing, Other Cardiovascular: No Chest Pain, No Palpitations, No Orthopnea, No Paroxysmal Noc. Dyspnea, No Edema, No Lt Headedness, No Other Gastrointestinal: No Nausea, No Vomiting, No Abdominal Pain, No Diarrhea, No Constipation, No Melena, No Hematochezia, No Other Genitourinary: No Dysuria, No Frequency, No Incontinence, No Hematuria, No Retention, No Discharge, No Urgency, No Pain, No Flank Pain, No Other, No , No , No , No , No , No , No Musculoskeletal: Yes Muscular Weakness; No Gait Disturbance, No Joint Pain, No Joint Stiffness, No Joint Swelling, No Muscle Pain, No Pain In:, No Swelling In:, No Other Skin: Yes Other (decubitus ulcerations) Physical Exam Physical Exam Lower extremity: skin is warm, xerotic, atrophic. decreased turgor. no hair is present to feet. nails are long x 10 with thickening 4mm, yellow brown discolored, onycholysis, subungal debris. no cellulitis. no calor. sensation diminished to light touch and sharp dull. DP and PT non palpable. Note blister formation to plantar 5th metatarsal left foot consistent with decubitus ulceration. no cellulitis. no calor. note full thickness ulceration to lateral malleolus right and posterior and plantar calcaneus left. General: Alert, No acute distress Vitals VITALS Vital Signs Date Time Temp Pulse Resp B/P (MAP) Pulse Ox O2 Delivery O2 Flow Rate FiO2 06/02/21 11:00 98.3 70 16 114/46 (68) 94 Room Air 98.3 06/02/21 08:00 2.0 Labs Labs Laboratory Tests Test 05/31/21 15:00 05/31/21 17:38 06/01/21 07:30 06/01/21 08:13 Activated Clotting Time 259 sec (92-181) Glucose (Fingerstick) 79 mg/dL (70-99) 71 mg/dL (70-99) White Blood Count 12.4 x10^3/uL (4.0-11.0) Red Blood Count 3.04 x10^6/uL (4.30-5.70) Hemoglobin 8.9 g/dL (13.0-17.5) Hematocrit 27.4 % (39.0-53.0) Mean Corpuscular Volume 90 fL (79-100) Mean Corpuscular Hemoglobin 29 pg (25-35) Mean Corpuscular Hemoglobin Concent 33 g/dL (31-37) Red Cell Distribution Width 18.8 % (11.5-14.5) Platelet Count 240 x10^3/uL (140-400) Neutrophils (%) (Auto) 79 % (31-73) Lymphocytes (%) (Auto) 10 % (24-48) Monocytes (%) (Auto) 10 % (0-9) Eosinophils (%) (Auto) 0 % (0-3) Basophils (%) (Auto) 1 % (0-3) Neutrophils # (Auto) 9.8 x10^3/uL (1.8-7.7) Lymphocytes # (Auto) 1.2 x10^3/uL (1.0-4.8) Monocytes # (Auto) 1.3 x10^3/uL (0.0-1.1) Eosinophils # (Auto) 0.1 x10^3/uL (0.0-0.7) Basophils # (Auto) 0.1 x10^3/uL (0.0-0.2) Sodium Level 141 mmol/L (136-145) Potassium Level 4.2 mmol/L (3.5-5.1) Chloride Level 107 mmol/L (98-107) Carbon Dioxide Level 16 mmol/L (21-32) Anion Gap 18 (6-14) Blood Urea Nitrogen 21 mg/dL (8-26) Creatinine 0.8 mg/dL (0.7-1.3) Estimated GFR (Cockcroft-Gault) 110.4 Glucose Level 69 mg/dL (70-99) Calcium Level 7.8 mg/dL (8.5-10.1) Test 06/01/21 11:26 06/01/21 17:06 06/01/21 19:48 06/02/21 06:20 Glucose (Fingerstick) 133 mg/dL (70-99) 112 mg/dL (70-99) 111 mg/dL (70-99) Sodium Level 139 mmol/L (136-145) Potassium Level 3.4 mmol/L (3.5-5.1) Chloride Level 108 mmol/L (98-107) Carbon Dioxide Level 21 mmol/L (21-32) Anion Gap 10 (6-14) Blood Urea Nitrogen 17 mg/dL (8-26) Creatinine 0.7 mg/dL (0.7-1.3) Estimated GFR (Cockcroft-Gault) 128.8 Glucose Level 75 mg/dL (70-99) Calcium Level 8.0 mg/dL (8.5-10.1) Test 06/02/21 07:51 06/02/21 12:02 Glucose (Fingerstick) 82 mg/dL (70-99) 82 mg/dL (70-99) Laboratory Tests Test 06/01/21 17:06 06/01/21 19:48 06/02/21 06:20 06/02/21 07:51 Glucose (Fingerstick) 112 mg/dL (70-99) 111 mg/dL (70-99) 82 mg/dL (70-99) Sodium Level 139 mmol/L (136-145) Potassium Level 3.4 mmol/L (3.5-5.1) Chloride Level 108 mmol/L (98-107) Carbon Dioxide Level 21 mmol/L (21-32) Anion Gap 10 (6-14) Blood Urea Nitrogen 17 mg/dL (8-26) Creatinine 0.7 mg/dL (0.7-1.3) Estimated GFR (Cockcroft-Gault) 128.8 Glucose Level 75 mg/dL (70-99) Calcium Level 8.0 mg/dL (8.5-10.1) Test 06/02/21 12:02 Glucose (Fingerstick) 82 mg/dL (70-99) Assessment/Plan Assessment/Plan 89 year old male admitted for failure to thrive, note clinical onychomycosis, onychogryphosis, PVD , decubitus ulcerations bilateral heel/ankle -Debrided nails x 10 with noted avulsion of left hallux nail as onycholysis is 99% of the nail. Microbleed of left hallux, applied pressure to achieve hemostasis and applied gauze and bandaid. Continue once daily local wound care with antibiotic ointment and bandaid. -continue strict decubitus precautions to bilateral lower extremity with offload boots -Wound care team to continue local wound care to decubitus ulcerations -Recommend consult cardiology or vascular surgery for PVD. -follow up on an as needed basis TINO REAL DPM Jun 02, 2021 13:50
[2021-06-02 15:00] VITALS: BP 116/52
[2021-06-02 19:00] VITALS: BP 107/68
[2021-06-02] MEDS: ATORVASTATIN CALCIUM 20 MG TABLET PO SCH (20:20)
[2021-06-02] MEDS: LATANOPROST 0.005% OPHTH SOLUTION 2.5ML BOTTLE. OU SCH (20:21)
[2021-06-02 23:58] VITALS: BP 116/60
[2021-06-03 03:45] VITALS: BP 117/51
[2021-06-03 07:00] VITALS: BP 130/61
[2021-06-03 08:15] LABS: CREATININE 0.9 mg/dL (0.7-1.3); GFR 96.4; POTASSIUM 4.2 mmol/L (3.5-5.1)
[2021-06-03] MEDS: levETIRAcetam 500 MG/5 ML ORAL SOLUTION. PO SCH ×2 (08:37→20:17)
[2021-06-03] MEDS: ASPIRIN ENTERIC COATED 81 MG TABLET.DR. PO SCH (08:37)
[2021-06-03] MEDS: MEGESTROL 400 MG/10 ML ORAL.SUSP. PO SCH ×2 (08:37→20:17)
[2021-06-03] MEDS: CLOPIDOGREL BISULFATE 75 MG TABLET PO SCH (08:37)
[2021-06-03] MEDS: BRIMONIDINE 0.2% OPHTH SOLUTION 5ML BOTTLE. OU SCH ×2 (08:38→20:18)
[2021-06-03] MEDS: APIXABAN 5 MG TABLET. PO SCH ×2 (08:38→20:17)
[2021-06-03] MEDS: TIMOLOL 0.5% OPHTH SOLUTION 5ML BOTTLE. OD SCH ×2 (08:38→20:18)
[2021-06-03] MEDS: AMIODARONE HCL 200 MG TABLET. PO SCH (08:39)
[2021-06-03] MEDS: PANTOPRAZOLE 40 MG TABLET.DR. PO SCH (08:39)
[2021-06-03] MEDS: CARVEDILOL 12.5 MG TABLET. PO SCH ×2 (08:39→19:20)
[2021-06-03] MEDS: DICLOFENAC SODIUM 1% TOPICAL GEL 100GM TUBE. TP SCH ×3 (08:39→20:17)
[2021-06-03] MEDS: IV NORMAL SALINE 1000ML BAG 1,000 ML IV SCH (10:55)
[2021-06-03 11:00] VITALS: BP 118/57
--- NOTE | 2021-06-03 11:27 | PDOC ---
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 Severe lateral compartment predominant osteoarthritis of the left knee with chondrocalcinosis and slight genu valgus. Caregiver burden Anemia of chronic disease Severe protein malnutrition Dementia History of atrial fibrillation History of hypertension History of CHF History of CAD History of osteoarthritis History of seizure activity Vascular surgery following for peripheral vascular diseaserecommend angiogram however due to the age and risk factors would recommend also palliative care. Pending further discussion with Continue heel offloading and heel boots Wound care consult for ulcers Resume home cardiac medications PT OT Orthostatic vital signs Eliquis for DVT prophylaxis Protonix GI prophylaxis ADA diet CODE STATUS full Discussed with RN and SW Disposition inpatient management as above DPOA: 37 MIN PT exam, chart review, > 50% of time spent with exam, chart review, pt care coordination. History of Present Illness History of Present Illness 89-year-old male with past medical history of atrial fibrillation, hypertension, GERD, AICD placement, CHF, aortic valve stenosis, CAD, osteoarthritis, anemia who was brought in from [facility] due to worsening generalized weakness. reports that the patient has not been seen by For a long time and she states she cannot take care of him anymore. Most of the events that led up to this point actually started around November 2020 where patient had to remain isolated at home and the was the only one taking care of him. He did have a fall episode where he was required to go to for evaluation. He was subsequently discharged from to [facility] for rehab and then he was sent home afterwards. Because the was not able to take care of him, she was able to use his VA benefits to send him to [facility] [place]. According to the , she states that they did not do much rehab with him and the patient was quarantined for 2 weeks and no room without much interaction. She is quite upset about this and her respite care days ran out and she had to take him home on May 15. presents the patient to [facility] in hopes to have social worker health services find placement for the patient to help the for taking care of him. According to the , before November patient was able to ambulate with a walker on his own and go to the kitchen and grab his own self some food and then sit back down. Other than that the patient is unable to make phone calls or do accounting or cook for himself or clean himself. Upon my interview with the patient, patient still thinks he is at [facility] but he is pleasantly confused and is able to answer appropriately questions for immediate basic needs. 05/27: No acute events overnight. Afebrile. Patient seen and examined bedside. No complaints at this time. Duplex ultrasound of the lower extremities completed showing monophasic flow and possibly some narrowing. Will defer to wound care for consulting vascular surgery at this time. 05/28: No acute events overnight. Patient seen and examined bedside. [employer] at bedside as well with him to turn down the right side decubitus. There is stool in his sacral ulcer that was cleaned out. Ulcers are all stable and intact. Asked specifically, if the patient wanted to pursue further treatment for his peripheral vascular disease. Patient stated that he did not know what he would and need to discuss further with his . 05/29: No acute events overnight. Patient seen and examined bedside. also at bedside. Family has decided to proceed with vascular intervention. Pending further vascular intervention and evaluation. 05/30: No acute events overnight. Patient seen and examined bedside tolerating breakfast. IR consult placed for possible angiogram on Monday. Appreciate 's evaluation and x-rays are completed. Will defer rest of pain management to Dr Myles and possible steroid injections if pain deems necessary. Patient's chart, labs, images were reviewed and discussed with RN 05/31: Afebrile overnight. To left SFA atherectomy and angioplasty with drug- coated balloon, loaded with plavix per vascular surgery. 06/01: Pain improved today. He overall feels about the same. WBC minimally increased. Started on Plavix and Eliquis today. No CP or SOB. Repeat PT evaluation - SNF vs LTACH 06/02: Afebrile. Complaint of right lateral ankle pain. Otherwise comfortable with rook boots. D/w bedside, she wishes to discuss home rehab vs LTACH, has previously had poor experience with 2 local SNFs. K 3.4 today. Podiatry consulted for nail care. Afebrile. Pain is about the same. No shortness of breath or chest pain. Encouraged to work with therapy. His nails been trimmed by podiatry. Discussed with PMR optimize wound healing will need higher level of care on discharge. Vitals/I&O Vitals/I&O: Vital Signs Date Time Temp Pulse Resp B/P (MAP) Pulse Ox O2 Delivery O2 Flow Rate FiO2 06/03/21 08:39 67 130/61 06/03/21 07:00 98.5 16 94 Room Air 98.5 06/02/21 19:54 2.0 I & O 06/02/21 06/02/21 06/03/21 15:00 23:00 07:00 Intake Total 120 ml 0 ml Balance 120 ml 0 ml Physical Exam General: Alert, No acute distress Heart: Regular rate Lungs: Clear Abdomen: Soft, No tenderness Extremities: No edema, Other (THere is superficial ulcerations in both feet with the left involving the heel and plantar foot and the right involving the lateral malleolus.) Skin: Other (His right lateral ankle has in ulcer overlying his malleolus which does not appear to probe to bone, wound edges are clean there is no purulent drainage or fluctuance or crepitus. His left foot has a moderate sized purple blister overlying the fifth met head without an open area, and a heel pressure wound and ulcer that does not have any drainage, fluctuance or crepitus. Is hard to determine the depth of the heel wound however cannot feel or probe to any bone.) Labs Labs: Laboratory Tests Test 06/02/21 12:02 06/02/21 17:15 06/02/21 19:59 06/03/21 06:55 Glucose (Fingerstick) 82 mg/dL (70-99) 70 mg/dL (70-99) 83 mg/dL (70-99) Sodium Level 139 mmol/L (136-145) Potassium Level 4.2 mmol/L (3.5-5.1) Chloride Level 111 mmol/L (98-107) Carbon Dioxide Level 18 mmol/L (21-32) Anion Gap 10 (6-14) Blood Urea Nitrogen 20 mg/dL (8-26) Creatinine 0.9 mg/dL (0.7-1.3) Estimated GFR (Cockcroft-Gault) 96.4 Glucose Level 140 mg/dL (70-99) Calcium Level 8.0 mg/dL (8.5-10.1) Test 06/03/21 08:09 Glucose (Fingerstick) 137 mg/dL (70-99) Comment Review of Relevant I have reviewed the following items shelby (where applicable) has been applied. Medications: Current Medications Medications (Trade) Dose Ordered Sig/Shital Route PRN Reason Start Time Stop Time Status Last Admin Dose Admin Info (Anti-Coagulation Monitoring By Pharmacy) 1 each PRN DAILY PRN MC PER PROTOCOL 06/02/21 13:45 06/02/21 13:48 Justifications for Admission Other Justification Debilitation adn generalized weakness KATE GARDNER MD Jun 03, 2021 11:27
--- NOTE | 2021-06-03 11:39 | PDOC ---
PROGRESS NOTES Date of Service DATE: 06/03/21 TIME: 11:36 Subjective Subjective No new complaints. Objective Objective Vital Signs Date Time Temp Pulse Resp B/P (MAP) Pulse Ox O2 Delivery O2 Flow Rate FiO2 06/03/21 08:39 67 130/61 06/03/21 08:11 Room Air 2.0 06/03/21 07:00 98.5 16 94 98.5 Intake and Output 06/03/21 07:00 Intake Total 120 ml Balance 120 ml Intake Oral 120 ml # Voids 2 # Bowel Movements 2 Physical Exam Physical Exam He is supine in bed and had Rooke boots in place to both feet and he apparently refusing to get up. He is not eating any solid food and just drinking liquids. Plan Plan of Care To encourage him to try to work with therapy and drink more while waiting for transfer to LTAC or SNF when medically stable. Comment Review of Relevant I have reviewed the following items shelby (where applicable) has been applied. Labs Laboratory Tests Test 06/01/21 17:06 06/01/21 19:48 06/02/21 06:20 06/02/21 07:51 Glucose (Fingerstick) 112 mg/dL (70-99) 111 mg/dL (70-99) 82 mg/dL (70-99) Sodium Level 139 mmol/L (136-145) Potassium Level 3.4 mmol/L (3.5-5.1) Chloride Level 108 mmol/L (98-107) Carbon Dioxide Level 21 mmol/L (21-32) Anion Gap 10 (6-14) Blood Urea Nitrogen 17 mg/dL (8-26) Creatinine 0.7 mg/dL (0.7-1.3) Estimated GFR (Cockcroft-Gault) 128.8 Glucose Level 75 mg/dL (70-99) Calcium Level 8.0 mg/dL (8.5-10.1) Test 06/02/21 12:02 06/02/21 17:15 06/02/21 19:59 06/03/21 06:55 Glucose (Fingerstick) 82 mg/dL (70-99) 70 mg/dL (70-99) 83 mg/dL (70-99) Sodium Level 139 mmol/L (136-145) Potassium Level 4.2 mmol/L (3.5-5.1) Chloride Level 111 mmol/L (98-107) Carbon Dioxide Level 18 mmol/L (21-32) Anion Gap 10 (6-14) Blood Urea Nitrogen 20 mg/dL (8-26) Creatinine 0.9 mg/dL (0.7-1.3) Estimated GFR (Cockcroft-Gault) 96.4 Glucose Level 140 mg/dL (70-99) Calcium Level 8.0 mg/dL (8.5-10.1) Test 06/03/21 08:09 Glucose (Fingerstick) 137 mg/dL (70-99) Laboratory Tests Test 06/02/21 12:02 06/02/21 17:15 06/02/21 19:59 06/03/21 06:55 Glucose (Fingerstick) 82 mg/dL (70-99) 70 mg/dL (70-99) 83 mg/dL (70-99) Sodium Level 139 mmol/L (136-145) Potassium Level 4.2 mmol/L (3.5-5.1) Chloride Level 111 mmol/L (98-107) Carbon Dioxide Level 18 mmol/L (21-32) Anion Gap 10 (6-14) Blood Urea Nitrogen 20 mg/dL (8-26) Creatinine 0.9 mg/dL (0.7-1.3) Estimated GFR (Cockcroft-Gault) 96.4 Glucose Level 140 mg/dL (70-99) Calcium Level 8.0 mg/dL (8.5-10.1) Test 06/03/21 08:09 Glucose (Fingerstick) 137 mg/dL (70-99) Medications Current Medications Amiodarone HCl (Cordarone) 200 mg DAILY PO Last administered on 06/03/21at 08:39; Start 05/26/21 at 13:00 Apixaban (Eliquis) 2.5 mg BID PO Last administered on 05/28/21at 22:49; Start 05/26/21 at 21:00; Stop 05/29/21 at 10:34; Status DC Aspirin (Ecotrin) 81 mg DAILY PO Last administered on 06/03/21at 08:37; Start 05/26/21 at 13:00 Atorvastatin Calcium (Lipitor) 20 mg HS PO Last administered on 06/02/21at 20:20; Start 05/26/21 at 21:00 Latanoprost (Xalatan) 1 drop QHS OU Last administered on 06/02/21at 20:21; Start 05/26/21 at 21:00 Pantoprazole Sodium (Protonix) 40 mg DAILYAC PO Last administered on 06/03/21at 08:39; Start 05/26/21 at 16:30 Brimonidine Tartrate (Alphagan) 1 drop BID OU Last administered on 06/03/21 08:38; Start 05/26/21 at 21:00 Carvedilol (Coreg) 25 mg BIDWMEALS PO Last administered on 06/03/21 08:39; Start 05/26/21 at 17:00 Levetiracetam (Keppra Oral Soln) 375 mg BID PO Last administered on 06/03/21 08:37; Start 05/26/21 at 21:00 Timolol Maleate (Timoptic 0.5% Oph) 1 drop BID OD Last administered on 06/03/21at 08:38; Start 05/26/21 at 21:00 Sennosides (Senna) 17.2 mg PRN BID PRN PO CONSTIPATION; Start 05/26/21 at 12:30 Docusate Sodium (Colace) 100 mg PRN DAILY PRN PO HARD STOOLS; Start 05/26/21 at 12:30 Ondansetron HCl (Zofran) 4 mg PRN Q6HRS PRN IVP NAUSEA/VOMITING; Start 05/26/21 at 12:30 Insulin Human Lispro (HumaLOG) 0-7 UNITS TIDWMEALS SQ ; Start 05/26/21 at 17:00; Stop 05/28/21 at 08:22; Status DC Dextrose (Dextrose 50%-Water Syringe) 12.5 gm PRN Q15MIN PRN IV SEE COMMENTS; Start 05/26/21 at 12:30 Acetaminophen (Tylenol) 650 mg PRN Q4HRS PRN PO TEMP OVER 100.4F OR MILD PAIN Last administered on 05/26/21at 14:45; Start 05/26/21 at 12:30 Lorazepam (Ativan) 0.5 mg PRN Q6HRS PRN PO ANXIETY / AGITATION; Start 05/26/21 at 12:30 Lorazepam (Ativan Inj) 0.25 mg PRN Q4HRS PRN IV ANXIETY / AGITATION; Start 05/26/21 at 12:30 Oxycodone/ Acetaminophen (Percocet 5/325) 1 tab PRN Q4HRS PRN PO MILD PAIN, 1ST CHOICE; Start 05/26/21 at 12:30; Stop 05/26/21 at 12:41; Status DC Prochlorperazine Edisylate (Compazine) 10 mg PRN Q6HRS PRN IV NAUSEA/VOMITING- 2nd choice; Start 05/26/21 at 12:30 Zolpidem Tartrate (Ambien) 2.5 mg PRN QHS PRN PO INSOMNIA; Start 05/26/21 at 12:30 Methocarbamol (Robaxin) 500 mg PRN Q8HRS PRN PO BACK PAIN or MUSCLE SPASMS Last administered on 05/30/21at 10:26; Start 05/28/21 at 15:00 Diclofenac Sodium (Voltaren) 1 ema BID TP Last administered on 06/03/21at 08:39; Start 05/29/21 at 12:00 Multi-Ingredient Ointment (Hydrocerin, Eucerin Cream) 1 ema PRN Q1HR PRN TP DRY SKIN / SCALING Last administered on 05/29/21at 23:15; Start 05/29/21 at 11:15 Megestrol Acetate (Megace) 400 mg BID PO Last administered on 06/03/21at 08:37; Start 05/29/21 at 12:00 Methylprednisolone Acetate (DEPO-Medrol 40MG VIAL) 40 mg 1X ONCE IM ; Start 05/29/21 at 12:00; Stop 05/29/21 at 12:01; Status DC Methylprednisolone Acetate (DEPO-Medrol 40MG VIAL) 40 mg 1X ONCE INJ ; Start 05/29/21 at 12:00; Stop 05/29/21 at 12:01; Status DC Bupivacaine HCl (Sensorcaine-Mpf 0.25%) 10 ml 1X ONCE IJ ; Start 05/29/21 at 12:00; Stop 05/29/21 at 12:01; Status DC Iodixanol (Visipaque 320) 100 ml STK-MED ONCE .ROUTE ; Start 05/31/21 at 12:29; Stop 05/31/21 at 12:29; Status DC Lidocaine HCl (Lidocaine 1% 20ml Vial) 20 ml STK-MED ONCE .ROUTE ; Start 05/31/21 at 12:29; Stop 05/31/21 at 12:29; Status DC Heparin Sodium/ Sodium Chloride 500 ml @ As Directed STK-MED ONCE .ROUTE ; Start 05/31/21 at 12:29; Stop 05/31/21 at 12:29; Status DC Midazolam HCl (Versed) 2 mg 1X ONCE IV Last administered on 05/31/21at 15:53; Start 05/31/21 at 12:45; Stop 05/31/21 at 12:46; Status DC Fentanyl Citrate (Fentanyl 2ml Vial) 100 mcg 1X ONCE IV Last administered on 05/31/21at 15:54; Start 05/31/21 at 12:45; Stop 05/31/21 at 12:46; Status DC Iodixanol (Visipaque 320) 100 ml 1X ONCE IART Last administered on 05/31/21at 15:53; Start 05/31/21 at 12:45; Stop 05/31/21 at 12:46; Status DC Lidocaine HCl (Lidocaine 1% 20ml Vial) 20 ml 1X ONCE INJ Last administered on 05/31/21at 15:53; Start 05/31/21 at 12:45; Stop 05/31/21 at 12:46; Status DC Heparin Sodium (Porcine) (Heparin Sodium) 10,000 unit STK-MED ONCE .ROUTE ; Start 05/31/21 at 12:36; Stop 05/31/21 at 12:36; Status DC Info (CONTRAST GIVEN -- Rx MONITORING) 1 each PRN DAILY PRN MC SEE COMMENTS; Start 05/31/21 at 12:45; Stop 06/02/21 at 12:44; Status DC Heparin Sodium (Porcine) (Heparin Sodium) 10,000 unit STK-MED ONCE .ROUTE ; Start 05/31/21 at 13:54; Stop 05/31/21 at 13:54; Status DC Nitroglycerin (Nitroglycerin) 4 mg STK-MED ONCE .ROUTE ; Start 05/31/21 at 13:56; Stop 05/31/21 at 13:57; Status DC Diltiazem HCl (Cardizem Iv Push) 25 mg STK-MED ONCE .ROUTE ; Start 05/31/21 at 13:56; Stop 05/31/21 at 13:57; Status DC Heparin Sodium/ Sodium Chloride 500 ml @ As Directed STK-MED ONCE .ROUTE ; Start 05/31/21 at 14:27; Stop 05/31/21 at 14:27; Status DC Iodixanol (Visipaque 320) 100 ml STK-MED ONCE .ROUTE ; Start 05/31/21 at 15:18; Stop 05/31/21 at 15:19; Status DC Heparin Sodium (Porcine) (Heparin Sodium) 9,000 unit 1X ONCE IV Last administered on 05/31/21at 15:56; Start 05/31/21 at 15:30; Stop 05/31/21 at 15:31; Status DC Diltiazem HCl 10 mg/Nitroglycerin 4 mg/Heparin Sodium (Porcine) 99609 unit/ Mi scellaneous 20 ml/Sodium Chloride 1,052 ml @ 1,000 mls/hr 1X ONCE INT CAT Last administered on 05/31/21at 15:30; Start 05/31/21 at 15:30; Stop 05/31/21 at 16:33; Status DC Clopidogrel Bisulfate (Plavix) 300 mg 1X ONCE PO Last administered on at 16:00; Start 05/31/21 at 16:00; Stop 05/31/21 at 16:01; Status DC Clopidogrel Bisulfate (Plavix) 75 mg STK-MED ONCE .ROUTE ; Start 05/31/21 at 15:56; Stop 05/31/21 at 15:56; Status DC Sodium Chloride 1,000 ml @ 75 mls/hr [id number] IV Last administered on 06/03/21at 10:55; Start 05/31/21 at 16:15 Clopidogrel Bisulfate (Plavix) 75 mg DAILYWBKFT PO Last administered on at 08:37; Start 06/01/21 at 08:00 Apixaban (Eliquis) 5 mg BID PO Last administered on 06/03/21at 08:38; Start 06/01/21 at 09:00 Nitroglycerin (Nitroglycerin) 4 mg STK-MED ONCE .ROUTE ; Start 05/31/21 at 14:00; Stop 06/02/21 at 08:51; Status DC Potassium Chloride (Klor-Con) 40 meq 1X ONCE PO Last administered on 06/02/21at 13:05; Start 06/02/21 at 11:00; Stop 06/02/21 at 11:01; Status DC Info (Anti-Coagulation Monitoring By Pharmacy) 1 each PRN DAILY PRN MC PER PROTOCOL Last administered on 06/02/21at 13:48; Start 06/02/21 at 13:45 Active Scripts Active Reported Spironolactone 25 Mg Tablet 25 Mg PO DAILY Pantoprazole Sodium (Pantoprazole Sodium) 40 Mg Tablet.dr 40 Mg PO DAILYAC Levetiracetam 750 Mg Tab.er.24h 750 Mg PO DAILY Hydralazine Hcl 25 Mg Tablet 25 Mg PO DAILY Eliquis (Apixaban) 2.5 Mg Tablet 2.5 Mg PO BID Diltiazem 24HR Cd (Diltiazem Hcl) 180 Mg Cap.er.24h 180 Mg PO DAILY Losartan Potassium 100 Mg Tablet 100 Mg PO DAILY Betimol (Timolol) 5 Ml Drops 5 Ml OP BID LAST DOSE: 09/02/15 AM NEXT DOSE: 09/02/15 PM Potassium Chloride 20 Meq Tab.er.prt 2 Tab PO DAILYWBKFT LAST DOSE: 09/02/15 BREAKFAST NEXT DOSE: 09/03/15 BREAKFAST NITROGLYCERIN SubLingual (Nitroglycerin) 0.4 Mg Tab.subl 1 Tab SL UD Latanoprost 2.5 Ml Drops 1 Drop EACHEYE QHS LAST DOSE: 09/01/15 BEDTIME NEXT DOSE: 09/02/15 BEDTIME Lasix (Furosemide) 40 Mg Tablet 1 Tab PO DAILY LAST DOSE: 09/02/15 AM NEXT DOSE: 09/03/15 AM Toviaz (Fesoterodine Fumarate) 4 Mg Tab.er.24h 1 Tab PO DAILY NEXT DOSE: 09/03/15 AM Nexium Capsule (Esomeprazole Magnesium) 40 Mg Capsule.dr 1 Cap PO DAILY LAST DOSE: 09/02/15 AM NEXT DOSE: 09/03/15 AM Cardura (Doxazosin Mesylate) 4 Mg Tablet 1 Tab PO HS LAST DOSE: 09/01/15 BEDTIME NEXT DOSE: 09/02/15 BEDTIME Coreg (Carvedilol) 25 Mg Tablet 1 Tab PO BID LAST DOSE: 09/02/15 AM NEXT DOSE: 09/02/15 PM Alphagan P (Brimonidine Tartrate) 5 Ml Drops 1 Drop EACHEYE BID LAST DOSE: 09/02/15 AM NEXT DOSE: 09/02/15 PM Atorvastatin Calcium 20 Mg Tablet 20 Mg PO HS LAST DOSE: 09/01/15 BEDTIME NEXT DOSE: 09/02/15 BEDTIME Aspir 81 (Aspirin) 81 Mg Tablet. 1 Tab PO DAILY LAST DOSE: 09/02/15 AM NEXT DOSE: 09/03/15 AM Amiodarone Hcl 200 Mg Tablet 100 Tab PO DAILY LAST DOSE: 09/02/15 AM NEXT DOSE: 09/03/15 AM Acetaminophen 500 Mg Tablet 2 Tab PO BID LAST DOSE: 09/02/15 AM NEXT DOSE: 09/02/15 PM Vitals/I & O Vital Sign - Last 24 Hours 06/02/21 06/02/21 06/02/21 06/02/21 15:00 17:22 19:00 19:54 Temp 98.7 98.9 98.7 98.9 Pulse 80 70 69 Resp 16 16 B/P (MAP) 116/52 (73) 114/46 107/68 (81) Pulse Ox 96 97 O2 Delivery Room Air Room Air Room Air O2 Flow Rate 2.0 06/02/21 06/03/21 06/03/21 06/03/21 23:58 03:45 07:00 08:11 Temp 98.5 99.0 98.5 98.5 99.0 98.5 Pulse 67 71 67 Resp 16 16 16 B/P (MAP) 116/60 (78) 117/51 (73) 130/61 (84) Pulse Ox 99 95 94 O2 Delivery Room Air Room Air Room Air Room Air O2 Flow Rate 2.0 06/03/21 06/03/21 08:39 08:39 Pulse 67 67 B/P (MAP) 130/61 130/61 Intake and Output 06/02/21 06/02/21 06/03/21 15:00 23:00 07:00 Intake Total 120 ml 0 ml Balance 120 ml 0 ml Justifications for Admission Other Justification Debilitation adn generalized weakness DAVID SAUNDERS MD Jun 03, 2021 11:39
[2021-06-03 15:00] VITALS: BP 127/78
--- NOTE | 2021-06-03 16:35 | NUR ---
SS following up with discharge planning. SS reviewed pt chart and discussed with pt's RN. Pt is currently on room air. Wound care following. PT/OT ordered. COVID19 negative. Physicians recommending snf unit for wound care and rehabilitation. SS contacted pt's niece/DPOA, Lucian Guo, , ( ), and discussed discharge planning. Pt's niece requesting referral to snf unit as long as pt does NOT go to [facility] or [facility]. Pt's niece reported no other preferences at this time. PT/OT needing to update notes and recommendations for referral. SS will continue to follow for discharge planning.
[2021-06-03 19:00] VITALS: BP 152/61
[2021-06-03] MEDS: LORazepam 0.5 MG TABLET PO PRN (20:16)
[2021-06-03] MEDS: ATORVASTATIN CALCIUM 20 MG TABLET PO SCH (20:17)
[2021-06-03] MEDS: ACETAMINOPHEN 325 MG TABLET. PO PRN (20:17)
[2021-06-03] MEDS: METHOCARBAMOL 500 MG TABLET PO PRN (20:17)
[2021-06-03] MEDS: LATANOPROST 0.005% OPHTH SOLUTION 2.5ML BOTTLE. OU SCH (20:18)
[2021-06-03 23:50] VITALS: BP 145/65
[2021-06-04] MEDS: IV NORMAL SALINE 1000ML BAG 1,000 ML IV SCH (00:15)
[2021-06-04 03:51] VITALS: BP 133/65
[2021-06-04 07:00] VITALS: BP 125/68
[2021-06-04] MEDS: levETIRAcetam 500 MG/5 ML ORAL SOLUTION. PO SCH ×2 (09:21→20:00)
[2021-06-04] MEDS: CLOPIDOGREL BISULFATE 75 MG TABLET PO SCH (09:21)
[2021-06-04] MEDS: ASPIRIN ENTERIC COATED 81 MG TABLET.DR. PO SCH (09:21)
[2021-06-04] MEDS: PANTOPRAZOLE 40 MG TABLET.DR. PO SCH (09:21)
[2021-06-04] MEDS: MEGESTROL 400 MG/10 ML ORAL.SUSP. PO SCH ×2 (09:21→19:59)
[2021-06-04] MEDS: BRIMONIDINE 0.2% OPHTH SOLUTION 5ML BOTTLE. OU SCH ×2 (09:21→20:04)
[2021-06-04] MEDS: TIMOLOL 0.5% OPHTH SOLUTION 5ML BOTTLE. OD SCH ×2 (09:21→20:03)
[2021-06-04] MEDS: APIXABAN 5 MG TABLET. PO SCH ×2 (09:21→20:00)
[2021-06-04] MEDS: AMIODARONE HCL 200 MG TABLET. PO SCH (09:22)
[2021-06-04] MEDS: CARVEDILOL 12.5 MG TABLET. PO SCH ×2 (09:22→16:23)
--- NOTE | 2021-06-04 09:32 | PDOC ---
PROGRESS NOTES Date of Service DATE: 06/04/21 TIME: 09:30 Subjective Subjective No new complaints. Objective Objective Vital Signs Date Time Temp Pulse Resp B/P (MAP) Pulse Ox O2 Delivery O2 Flow Rate FiO2 06/04/21 09:22 71 125/68 06/04/21 07:00 98.8 18 95 Room Air 98.8 06/03/21 08:11 2.0 Intake and Output 06/04/21 07:00 Intake Total 120 ml Output Total 1 ml Balance 119 ml Intake Oral 120 ml Output Stool Total 1 ml # Voids 4 # Bowel Movements 2 Physical Exam Physical Exam He is alert,supine in bed with Rooke boots in place and he continues to refuse to get up with therapy. Plan Plan of Care Agree with plans for transfer to SNF for continued wound care. Comment Review of Relevant I have reviewed the following items shelby (where applicable) has been applied. Labs Laboratory Tests Test 06/02/21 12:02 06/02/21 17:15 06/02/21 19:59 06/03/21 06:55 Glucose (Fingerstick) 82 mg/dL (70-99) 70 mg/dL (70-99) 83 mg/dL (70-99) Sodium Level 139 mmol/L (136-145) Potassium Level 4.2 mmol/L (3.5-5.1) Chloride Level 111 mmol/L (98-107) Carbon Dioxide Level 18 mmol/L (21-32) Anion Gap 10 (6-14) Blood Urea Nitrogen 20 mg/dL (8-26) Creatinine 0.9 mg/dL (0.7-1.3) Estimated GFR (Cockcroft-Gault) 96.4 Glucose Level 140 mg/dL (70-99) Calcium Level 8.0 mg/dL (8.5-10.1) Test 06/03/21 08:09 06/03/21 12:29 06/03/21 16:32 06/03/21 19:50 Glucose (Fingerstick) 137 mg/dL (70-99) 137 mg/dL (70-99) 173 mg/dL (70-99) 179 mg/dL (70-99) Test 06/04/21 07:26 Glucose (Fingerstick) 113 mg/dL (70-99) Laboratory Tests Test 06/03/21 12:29 06/03/21 16:32 06/03/21 19:50 06/04/21 07:26 Glucose (Fingerstick) 137 mg/dL (70-99) 173 mg/dL (70-99) 179 mg/dL (70-99) 113 mg/dL (70-99) Medications Current Medications Amiodarone HCl (Cordarone) 200 mg DAILY PO Last administered on 06/04/21 09:22; Start 05/26/21 at 13:00 Apixaban (Eliquis) 2.5 mg BID PO Last administered on 05/28/21at 22:49; Start 05/26/21 at 21:00; Stop 05/29/21 at 10:34; Status DC Aspirin (Ecotrin) 81 mg DAILY PO Last administered on 06/04/21 09:21; Start 05/26/21 at 13:00 Atorvastatin Calcium (Lipitor) 20 mg HS PO Last administered on 06/03/21at 20:17; Start 05/26/21 at 21:00 Latanoprost (Xalatan) 1 drop QHS OU Last administered on 06/03/21at 20:18; Start 05/26/21 at 21:00 Pantoprazole Sodium (Protonix) 40 mg DAILYAC PO Last administered on 06/04/21 09:21; Start 05/26/21 at 16:30 Brimonidine Tartrate (Alphagan) 1 drop BID OU Last administered on 06/04/21 09:21; Start 05/26/21 at 21:00 Carvedilol (Coreg) 25 mg BIDWMEALS PO Last administered on 06/04/21 09:22; Start 05/26/21 at 17:00 Levetiracetam (Keppra Oral Soln) 375 mg BID PO Last administered on 06/04/21 09:21; Start 05/26/21 at 21:00 Timolol Maleate (Timoptic 0.5% Oph) 1 drop BID OD Last administered on 06/04/21 09:21; Start 05/26/21 at 21:00 Sennosides (Senna) 17.2 mg PRN BID PRN PO CONSTIPATION; Start 05/26/21 at 12:30 Docusate Sodium (Colace) 100 mg PRN DAILY PRN PO HARD STOOLS; Start 05/26/21 at 12:30 Ondansetron HCl (Zofran) 4 mg PRN Q6HRS PRN IVP NAUSEA/VOMITING; Start 05/26/21 at 12:30 Insulin Human Lispro (HumaLOG) 0-7 UNITS TIDWMEALS SQ ; Start 05/26/21 at 17:00; Stop 05/28/21 at 08:22; Status DC Dextrose (Dextrose 50%-Water Syringe) 12.5 gm PRN Q15MIN PRN IV SEE COMMENTS; Start 05/26/21 at 12:30 Acetaminophen (Tylenol) 650 mg PRN Q4HRS PRN PO TEMP OVER 100.4F OR MILD PAIN Last administered on 06/03/21at 20:17; Start 05/26/21 at 12:30 Lorazepam (Ativan) 0.5 mg PRN Q6HRS PRN PO ANXIETY / AGITATION Last administered on 06/03/21at 20:16; Start 05/26/21 at 12:30 Lorazepam (Ativan Inj) 0.25 mg PRN Q4HRS PRN IV ANXIETY / AGITATION; Start 05/26/21 at 12:30 Oxycodone/ Acetaminophen (Percocet 5/325) 1 tab PRN Q4HRS PRN PO MILD PAIN, 1ST CHOICE; Start 05/26/21 at 12:30; Stop 05/26/21 at 12:41; Status DC Prochlorperazine Edisylate (Compazine) 10 mg PRN Q6HRS PRN IV NAUSEA/VOMITING- 2nd choice; Start 05/26/21 at 12:30 Zolpidem Tartrate (Ambien) 2.5 mg PRN QHS PRN PO INSOMNIA; Start 05/26/21 at 12:30 Methocarbamol (Robaxin) 500 mg PRN Q8HRS PRN PO BACK PAIN or MUSCLE SPASMS Last administered on 06/03/21at 20:17; Start 05/28/21 at 15:00 Diclofenac Sodium (Voltaren) 1 ema BID TP Last administered on 06/03/21at 20:17; Start 05/29/21 at 12:00 Multi-Ingredient Ointment (Hydrocerin, Eucerin Cream) 1 ema PRN Q1HR PRN TP DRY SKIN / SCALING Last administered on 05/29/21at 23:15; Start 05/29/21 at 11:15 Megestrol Acetate (Megace) 400 mg BID PO Last administered on 06/04/21at 09:21; Start 05/29/21 at 12:00 Methylprednisolone Acetate (DEPO-Medrol 40MG VIAL) 40 mg 1X ONCE IM ; Start 05/29/21 at 12:00; Stop 05/29/21 at 12:01; Status DC Methylprednisolone Acetate (DEPO-Medrol 40MG VIAL) 40 mg 1X ONCE INJ ; Start 05/29/21 at 12:00; Stop 05/29/21 at 12:01; Status DC Bupivacaine HCl (Sensorcaine-Mpf 0.25%) 10 ml 1X ONCE IJ ; Start 05/29/21 at 12:00; Stop 05/29/21 at 12:01; Status DC Iodixanol (Visipaque 320) 100 ml STK-MED ONCE .ROUTE ; Start 05/31/21 at 12:29; Stop 05/31/21 at 12:29; Status DC Lidocaine HCl (Lidocaine 1% 20ml Vial) 20 ml STK-MED ONCE .ROUTE ; Start 05/31/21 at 12:29; Stop 05/31/21 at 12:29; Status DC Heparin Sodium/ Sodium Chloride 500 ml @ As Directed STK-MED ONCE .ROUTE ; Start 05/31/21 at 12:29; Stop 05/31/21 at 12:29; Status DC Midazolam HCl (Versed) 2 mg 1X ONCE IV Last administered on 05/31/21at 15:53; Start 05/31/21 at 12:45; Stop 05/31/21 at 12:46; Status DC Fentanyl Citrate (Fentanyl 2ml Vial) 100 mcg 1X ONCE IV Last administered on 05/31/21at 15:54; Start 05/31/21 at 12:45; Stop 05/31/21 at 12:46; Status DC Iodixanol (Visipaque 320) 100 ml 1X ONCE IART Last administered on 05/31/21at 15:53; Start 05/31/21 at 12:45; Stop 05/31/21 at 12:46; Status DC Lidocaine HCl (Lidocaine 1% 20ml Vial) 20 ml 1X ONCE INJ Last administered on 05/31/21at 15:53; Start 05/31/21 at 12:45; Stop 05/31/21 at 12:46; Status DC Heparin Sodium (Porcine) (Heparin Sodium) 10,000 unit STK-MED ONCE .ROUTE ; Start 05/31/21 at 12:36; Stop 05/31/21 at 12:36; Status DC Info (CONTRAST GIVEN -- Rx MONITORING) 1 each PRN DAILY PRN MC SEE COMMENTS; Start 05/31/21 at 12:45; Stop 06/02/21 at 12:44; Status DC Heparin Sodium (Porcine) (Heparin Sodium) 10,000 unit STK-MED ONCE .ROUTE ; Start 05/31/21 at 13:54; Stop 05/31/21 at 13:54; Status DC Nitroglycerin (Nitroglycerin) 4 mg STK-MED ONCE .ROUTE ; Start 05/31/21 at 13:56; Stop 05/31/21 at 13:57; Status DC Diltiazem HCl (Cardizem Iv Push) 25 mg STK-MED ONCE .ROUTE ; Start 05/31/21 at 13:56; Stop 05/31/21 at 13:57; Status DC Heparin Sodium/ Sodium Chloride 500 ml @ As Directed STK-MED ONCE .ROUTE ; Start 05/31/21 at 14:27; Stop 05/31/21 at 14:27; Status DC Iodixanol (Visipaque 320) 100 ml STK-MED ONCE .ROUTE ; Start 05/31/21 at 15:18; Stop 05/31/21 at 15:19; Status DC Heparin Sodium (Porcine) (Heparin Sodium) 9,000 unit 1X ONCE IV Last administered on 05/31/21at 15:56; Start 05/31/21 at 15:30; Stop 05/31/21 at 15:31; Status DC Diltiazem HCl 10 mg/Nitroglycerin 4 mg/Heparin Sodium (Porcine) 10835 unit/ Miscellaneous 20 ml/Sodium Chloride 1,052 ml @ 1,000 mls/hr 1X ONCE INT CAT Last administered on 05/31/21at 15:30; Start 05/31/21 at 15:30; Stop 05/31/21 at 16:33; Status DC Clopidogrel Bisulfate (Plavix) 300 mg 1X ONCE PO Last administered on 05/31/21at 16:00; Start 05/31/21 at 16:00; Stop 05/31/21 at 16:01; Status DC Clopidogrel Bisulfate (Plavix) 75 mg STK-MED ONCE .ROUTE ; Start 05/31/21 at 15:56; Stop 05/31/21 at 15:56; Status DC Sodium Chloride 1,000 ml @ 75 mls/hr [id number] IV Last administered on 06/03/21at 10:55; Start 05/31/21 at 16:15 Clopidogrel Bisulfate (Plavix) 75 mg DAILYWBKFT PO Last administered on 06/04/21at 09:21; Start 06/01/21 at 08:00 Apixaban (Eliquis) 5 mg BID PO Last administered on 06/04/21at 09:21; Start 06/01/21 at 09:00 Nitroglycerin (Nitroglycerin) 4 mg STK-MED ONCE .ROUTE ; Start 05/31/21 at 14:00; Stop 06/02/21 at 08:51; Status DC Potassium Chloride (Klor-Con) 40 meq 1X ONCE PO Last administered on 06/02/21at 13:05; Start 06/02/21 at 11:00; Stop 06/02/21 at 11:01; Status DC Info (Anti-Coagulation Monitoring By Pharmacy) 1 each PRN DAILY PRN MC PER PROTOCOL Last administered on 06/02/21at 13:48; Start 06/02/21 at 13:45 Active Scripts Active Reported Spironolactone 25 Mg Tablet 25 Mg PO DAILY Pantoprazole Sodium (Pantoprazole Sodium) 40 Mg Tablet.dr 40 Mg PO DAILYAC Levetiracetam 750 Mg Tab.er.24h 750 Mg PO DAILY Hydralazine Hcl 25 Mg Tablet 25 Mg PO DAILY Eliquis (Apixaban) 2.5 Mg Tablet 2.5 Mg PO BID Diltiazem 24HR Cd (Diltiazem Hcl) 180 Mg Cap.er.24h 180 Mg PO DAILY Losartan Potassium 100 Mg Tablet 100 Mg PO DAILY Betimol (Timolol) 5 Ml Drops 5 Ml OP BID LAST DOSE: 09/02/15 AM NEXT DOSE: 09/02/15 PM Potassium Chloride 20 Meq Tab.er.prt 2 Tab PO DAILYWBKFT LAST DOSE: 09/02/15 BREAKFAST NEXT DOSE: 09/03/15 BREAKFAST NITROGLYCERIN SubLingual (Nitroglycerin) 0.4 Mg Tab.subl 1 Tab SL UD Latanoprost 2.5 Ml Drops 1 Drop EACHEYE QHS LAST DOSE: 09/01/15 BEDTIME NEXT DOSE: 09/02/15 BEDTIME Lasix (Furosemide) 40 Mg Tablet 1 Tab PO DAILY LAST DOSE: 09/02/15 AM NEXT DOSE: 09/03/15 AM Toviaz (Fesoterodine Fumarate) 4 Mg Tab.er.24h 1 Tab PO DAILY NEXT DOSE: 09/03/15 AM Nexium Capsule (Esomeprazole Magnesium) 40 Mg Capsule.dr 1 Cap PO DAILY LAST DOSE: 09/02/15 AM NEXT DOSE: 09/03/15 AM Cardura (Doxazosin Mesylate) 4 Mg Tablet 1 Tab PO HS LAST DOSE: 09/01/15 BEDTIME NEXT DOSE: 09/02/15 BEDTIME Coreg (Carvedilol) 25 Mg Tablet 1 Tab PO BID LAST DOSE: 09/02/15 AM NEXT DOSE: 09/02/15 PM Alphagan P (Brimonidine Tartrate) 5 Ml Drops 1 Drop EACHEYE BID LAST DOSE: 09/02/15 AM NEXT DOSE: 09/02/15 PM Atorvastatin Calcium 20 Mg Tablet 20 Mg PO HS LAST DOSE: 09/01/15 BEDTIME NEXT DOSE: 09/02/15 BEDTIME Aspir 81 (Aspirin) 81 Mg Tablet.dr 1 Tab PO DAILY LAST DOSE: 09/02/15 AM NEXT DOSE: 09/03/15 AM Amiodarone Hcl 200 Mg Tablet 100 Tab PO DAILY LAST DOSE: 09/02/15 AM NEXT DOSE: 09/03/15 AM Acetaminophen 500 Mg Tablet 2 Tab PO BID LAST DOSE: 09/02/15 AM NEXT DOSE: 09/02/15 PM Vitals/I & O Vital Sign - Last 24 Hours 06/03/21 06/03/21 06/03/21 06/03/21 11:00 15:00 19:00 19:20 Temp 98.6 98.3 99.3 98.6 98.3 99.3 Pulse 69 69 66 69 Resp 16 16 16 B/P (MAP) 118/57 (77) 127/78 (94) 152/61 (91) 127/78 Pulse Ox 95 96 96 O2 Delivery Room Air Room Air Room Air 06/03/21 06/03/21 06/04/21 06/04/21 19:35 23:50 03:51 07:00 Temp 98.6 98.5 98.8 98.6 98.5 98.8 Pulse 76 70 71 Resp 16 16 18 B/P (MAP) 145/65 (91) 133/65 (87) 125/68 (87) Pulse Ox 94 96 95 O2 Delivery Room Air Room Air Room Air Room Air 06/04/21 06/04/21 09:22 09:22 Pulse 71 71 B/P (MAP) 125/68 125/68 Intake and Output 06/03/21 06/03/21 06/04/21 15:00 23:00 07:00 Intake Total 0 ml 120 ml Output Total 1 ml Balance 0 ml 119 ml Justifications for Admission Other Justification Debilitation adn generalized weakness DAVID SAUNDERS MD Jun 04, 2021 09:32
--- NOTE | 2021-06-04 10:05 | PDOC ---
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 Severe lateral compartment predominant osteoarthritis of the left knee with chondrocalcinosis and slight genu valgus. Caregiver burden Anemia of chronic disease Severe protein malnutrition Dementia History of atrial fibrillation History of hypertension History of CHF History of CAD History of osteoarthritis History of seizure activity Vascular surgery following for peripheral vascular diseaserecommend angiogram however due to the age and risk factors would recommend also palliative care. Pending further discussion with Continue heel offloading and heel boots Wound care consult for ulcers Resume home cardiac medications PT OT Orthostatic vital signs Eliquis for DVT prophylaxis Protonix GI prophylaxis ADA diet CODE STATUS full Discussed with RN and SW Disposition inpatient management as above DPOA: 37 MIN PT exam, chart review, > 50% of time spent with exam, chart review, pt care coordination. History of Present Illness History of Present Illness 89-year-old male with past medical history of atrial fibrillation, hypertension, GERD, AICD placement, CHF, aortic valve stenosis, CAD, osteoarthritis, anemia who was brought in from [facility] due to worsening generalized weakness. reports that the patient has not been seen by For a long time and she states she cannot take care of him anymore. Most of the events that led up to this point actually started around November 2020 where patient had to remain isolated at home and the was the only one taking care of him. He did have a fall episode where he was required to go to for evaluation. He was subsequently discharged from to [facility] for rehab and then he was sent home afterwards. Because the was not able to take care of him, she was able to use his VA benefits to send him to [facility]. According to the , she states that they did not do much rehab with him and the patient was quarantined for 2 weeks and no room without much interaction. She is quite upset about this and her respite care days ran out and she had to take him home on May 15. presents the patient to [facility] in hopes to have social media campaign manager find placement for the patient to help the for taking care of him. According to the , before November patient was able to ambulate with a walker on his own and go to the kitchen and grab his own self some food and then sit back down. Other than that the patient is unable to make phone calls or do accounting or cook for himself or clean himself. Upon my interview with the patient, patient still thinks he is at [facility] but he is pleasantly confused and is able to answer appropriately questions for immediate basic needs. 05/27: No acute events overnight. Afebrile. Patient seen and examined bedside. No complaints at this time. Duplex ultrasound of the lower extremities completed showing monophasic flow and possibly some narrowing. Will defer to wound care for consulting vascular surgery at this time. 05/28: No acute events overnight. Patient seen and examined bedside. [employer] at bedside as well with him to turn down the right side decubitus. There is stool in his sacral ulcer that was cleaned out. Ulcers are all stable and intact. Asked specifically, if the patient wanted to pursue further treatment for his peripheral vascular disease. Patient stated that he did not know what he would and need to discuss further with his . 05/29: No acute events overnight. Patient seen and examined bedside. also at bedside. Family has decided to proceed with vascular intervention. Pending further vascular intervention and evaluation. 05/30: No acute events overnight. Patient seen and examined bedside tolerating breakfast. IR consult placed for possible angiogram on Monday. Appreciate 's evaluation and x-rays are completed. Will defer rest of pain management to Dr Myles and possible steroid injections if pain deems necessary. Patient's chart, labs, images were reviewed and discussed with RN 05/31: Afebrile overnight. To left SFA atherectomy and angioplasty with drug- coated balloon, loaded with plavix per vascular surgery. 06/01: Pain improved today. He overall feels about the same. WBC minimally increased. Started on Plavix and Eliquis today. No CP or SOB. Repeat PT evaluation - SNF vs LTACH 06/02: Afebrile. Complaint of right lateral ankle pain. Otherwise comfortable with rook boots. D/w bedside, she wishes to discuss home rehab vs LTACH, has previously had poor experience with 2 local SNFs. K 3.4 today. Podiatry consulted for nail care. 06/03: Afebrile. Pain is about the same. No shortness of breath or chest pain. Encouraged to work with therapy. His nails been trimmed by podiatry. Discussed with PMR optimize wound healing will need higher level of care on discharge. Afebrile. Pain is about the same did not work with therapy. He is asking for assistance in getting his dentures out to clean them. No real complaints. Discussed with niece will need further wound care at SNF. Vitals/I&O Vitals/I&O: Vital Signs Date Time Temp Pulse Resp B/P (MAP) Pulse Ox O2 Delivery O2 Flow Rate FiO2 06/04/21 09:22 71 125/68 06/04/21 07:00 98.8 18 95 Room Air 98.8 06/03/21 08:11 2.0 I & O 06/03/21 06/03/21 06/04/21 15:00 23:00 07:00 Intake Total 0 ml 120 ml Output Total 1 ml Balance 0 ml 119 ml Physical Exam General: Alert, No acute distress Heart: Regular rate Lungs: Clear Abdomen: Soft, No tenderness Extremities: No edema, Other (THere is superficial ulcerations in both feet with the left involving the heel and plantar foot and the right involving the lateral malleolus.) Skin: Other (His right lateral ankle has in ulcer overlying his malleolus which does not appear to probe to bone, wound edges are clean there is no purulent drainage or fluctuance or crepitus. His left foot has a moderate sized purple blister overlying the fifth met head without an open area, and a heel pressure wound and ulcer that does not have any drainage, fluctuance or crepitus. Is hard to determine the depth of the heel wound however cannot feel or probe to any bone.) Labs Labs: Laboratory Tests Test 06/03/21 12:29 06/03/21 16:32 06/03/21 19:50 06/04/21 07:26 Glucose (Fingerstick) 137 mg/dL (70-99) 173 mg/dL (70-99) 179 mg/dL (70-99) 113 mg/dL (70-99) Comment Review of Relevant I have reviewed the following items shelby (where applicable) has been applied. Justifications for Admission Other Justification Debilitation adn generalized weakness KATE GARDNER MD Jun 04, 2021 10:05
[2021-06-04 11:00] VITALS: BP 119/59
[2021-06-04 15:00] VITALS: BP 127/58
--- NOTE | 2021-06-04 15:33 | NUR ---
SW following. Discussed with RN, pt from home with . Therapy recommending director long term care care. JOSSELIN spoke with pt's DPOA/ Niece, Lucian (ph: [phone])., she does not want pt to go into a care home because "they won't take care of him and he will ." Lucian expressed concern over pt going to a facility because last time he got wound on his bottom (pt went to SNF last two times), however Lucian wants pt to go SNF again. JOSSELIN explained about pt declining to participate in therapy lately and the recommendation of senior care care, to which Lucian stated we must not have address his needs. Lucian stated she would call her aunt, SW encouraged Lucian to call the patient and try to encourage him to participate. Dr. Carlos notified. JOSSELIN will continue to follow.
[2021-06-04 19:00] VITALS: BP 133/57
[2021-06-04] MEDS: METHOCARBAMOL 500 MG TABLET PO PRN (20:00)
[2021-06-04] MEDS: LORazepam 0.5 MG TABLET PO PRN (20:00)
[2021-06-04] MEDS: ACETAMINOPHEN 325 MG TABLET. PO PRN (20:00)
[2021-06-04] MEDS: LATANOPROST 0.005% OPHTH SOLUTION 2.5ML BOTTLE. OU SCH (20:03)
[2021-06-04] MEDS: DICLOFENAC SODIUM 1% TOPICAL GEL 100GM TUBE. TP SCH (20:03)
[2021-06-04] MEDS: ATORVASTATIN CALCIUM 20 MG TABLET PO SCH (20:07)
[2021-06-04 23:00] VITALS: BP 142/52
[2021-06-05] MEDS: ACETAMINOPHEN 325 MG TABLET. PO PRN ×2 (01:58→19:49)
[2021-06-05 03:53] VITALS: BP 116/48
[2021-06-05] MEDS: PANTOPRAZOLE 40 MG TABLET.DR. PO SCH (05:18)
[2021-06-05 07:00] VITALS: BP 128/57
[2021-06-05] MEDS: levETIRAcetam 500 MG/5 ML ORAL SOLUTION. PO SCH ×2 (08:37→19:50)
[2021-06-05] MEDS: MEGESTROL 400 MG/10 ML ORAL.SUSP. PO SCH ×2 (08:38→19:49)
[2021-06-05] MEDS: ASPIRIN ENTERIC COATED 81 MG TABLET.DR. PO SCH (08:39)
[2021-06-05] MEDS: CARVEDILOL 12.5 MG TABLET. PO SCH ×2 (08:40→16:59)
[2021-06-05] MEDS: CLOPIDOGREL BISULFATE 75 MG TABLET PO SCH (08:40)
[2021-06-05] MEDS: AMIODARONE HCL 200 MG TABLET. PO SCH (08:40)
[2021-06-05] MEDS: BRIMONIDINE 0.2% OPHTH SOLUTION 5ML BOTTLE. OU SCH ×2 (08:41→19:50)
[2021-06-05] MEDS: DICLOFENAC SODIUM 1% TOPICAL GEL 100GM TUBE. TP SCH ×2 (08:41→19:51)
[2021-06-05] MEDS: APIXABAN 5 MG TABLET. PO SCH ×2 (08:41→19:49)
[2021-06-05] MEDS: TIMOLOL 0.5% OPHTH SOLUTION 5ML BOTTLE. OD SCH ×2 (08:42→19:50)
--- NOTE | 2021-06-05 10:39 | PDOC ---
PROGRESS NOTES Date of Service DATE: 06/05/21 TIME: 10:37 Subjective Subjective No new complaints. Objective Objective Vital Signs Date Time Temp Pulse Resp B/P (MAP) Pulse Ox O2 Delivery O2 Flow Rate FiO2 06/05/21 08:40 73 128/57 06/05/21 08:00 Room Air 06/05/21 07:00 97.8 20 92 97.8 06/03/21 08:11 2.0 Intake and Output 06/05/21 07:00 Intake Total 880 ml Output Total 0 ml Balance 880 ml Intake Oral 880 ml Output Urine Total 0 ml # Voids 2 Physical Exam Physical Exam He is resting supine in bed with vascular boots in place to both feet. Plan Plan of Care Waiting for placement. Comment Review of Relevant I have reviewed the following items shelby (where applicable) has been applied. Labs Laboratory Tests Test 06/03/21 12:29 06/03/21 16:32 06/03/21 19:50 06/04/21 07:26 Glucose (Fingerstick) 137 mg/dL (70-99) 173 mg/dL (70-99) 179 mg/dL (70-99) 113 mg/dL (70-99) Test 06/04/21 11:59 06/04/21 14:42 06/04/21 20:20 06/05/21 07:29 Glucose (Fingerstick) 119 mg/dL (70-99) 106 mg/dL (70-99) 105 mg/dL (70-99) 81 mg/dL (70-99) Laboratory Tests Test 06/04/21 11:59 06/04/21 14:42 06/04/21 20:20 06/05/21 07:29 Glucose (Fingerstick) 119 mg/dL (70-99) 106 mg/dL (70-99) 105 mg/dL (70-99) 81 mg/dL (70-99) Medications Current Medications Amiodarone HCl (Cordarone) 200 mg DAILY PO Last administered on 06/05/21at 08:40; Start 05/26/21 at 13:00 Apixaban (Eliquis) 2.5 mg BID PO Last administered on 05/28/21at 22:49; Start 05/26/21 at 21:00; Stop 05/29/21 at 10:34; Status DC Aspirin (Ecotrin) 81 mg DAILY PO Last administered on 06/05/21 08:39; Start 05/26/21 at 13:00 Atorvastatin Calcium (Lipitor) 20 mg HS PO Last administered on 06/04/21at 20:07; Start 05/26/21 at 21:00 Latanoprost (Xalatan) 1 drop QHS OU Last administered on 06/04/21at 20:03; Start 05/26/21 at 21:00 Pantoprazole Sodium (Protonix) 40 mg DAILYAC PO Last administered on 06/05/21 05:18; Start 05/26/21 at 16:30 Brimonidine Tartrate (Alphagan) 1 drop BID OU Last administered on 06/05/21 08:41; Start 05/26/21 at 21:00 Carvedilol (Coreg) 25 mg BIDWMEALS PO Last administered on 06/05/21 08:40; Start 05/26/21 at 17:00 Levetiracetam (Keppra Oral Soln) 375 mg BID PO Last administered on 06/05/21at 08:37; Start 05/26/21 at 21:00 Timolol Maleate (Timoptic 0.5% Oph) 1 drop BID OD Last administered on 06/05/21at 08:42; Start 05/26/21 at 21:00 Sennosides (Senna) 17.2 mg PRN BID PRN PO CONSTIPATION; Start 05/26/21 at 12:30 Docusate Sodium (Colace) 100 mg PRN DAILY PRN PO HARD STOOLS; Start 05/26/21 at 12:30 Ondansetron HCl (Zofran) 4 mg PRN Q6HRS PRN IVP NAUSEA/VOMITING; Start 05/26/21 at 12:30 Insulin Human Lispro (HumaLOG) 0-7 UNITS TIDWMEALS SQ ; Start 05/26/21 at 17:00; Stop 05/28/21 at 08:22; Status DC Dextrose (Dextrose 50%-Water Syringe) 12.5 gm PRN Q15MIN PRN IV SEE COMMENTS; Start 05/26/21 at 12:30 Acetaminophen (Tylenol) 650 mg PRN Q4HRS PRN PO TEMP OVER 100.4F OR MILD PAIN Last administered on 06/05/21at 01:58; Start 05/26/21 at 12:30 Lorazepam (Ativan) 0.5 mg PRN Q6HRS PRN PO ANXIETY / AGITATION Last administered on 06/04/21at 20:00; Start 05/26/21 at 12:30 Lorazepam (Ativan Inj) 0.25 mg PRN Q4HRS PRN IV ANXIETY / AGITATION; Start 05/26/21 at 12:30 Oxycodone/ Acetaminophen (Percocet 5/325) 1 tab PRN Q4HRS PRN PO MILD PAIN, 1ST CHOICE; Start 05/26/21 at 12:30; Stop 05/26/21 at 12:41; Status DC Prochlorperazine Edisylate (Compazine) 10 mg PRN Q6HRS PRN IV NAUSEA/VOMITING- 2nd choice; Start 05/26/21 at 12:30 Zolpidem Tartrate (Ambien) 2.5 mg PRN QHS PRN PO INSOMNIA; Start 05/26/21 at 12:30 Methocarbamol (Robaxin) 500 mg PRN Q8HRS PRN PO BACK PAIN or MUSCLE SPASMS Last administered on 06/04/21at 20:00; Start 05/28/21 at 15:00 Diclofenac Sodium (Voltaren) 1 ema BID TP Last administered on 06/05/21at 08:41; Start 05/29/21 at 12:00 Multi-Ingredient Ointment (Hydrocerin, Eucerin Cream) 1 ema PRN Q1HR PRN TP DRY SKIN / SCALING Last administered on 05/29/21at 23:15; Start 05/29/21 at 11:15 Megestrol Acetate (Megace) 400 mg BID PO Last administered on 06/05/21at 08:38; Start 05/29/21 at 12:00 Methylprednisolone Acetate (DEPO-Medrol 40MG VIAL) 40 mg 1X ONCE IM ; Start 05/29/21 at 12:00; Stop 05/29/21 at 12:01; Status DC Methylprednisolone Acetate (DEPO-Medrol 40MG VIAL) 40 mg 1X ONCE INJ ; Start 05/29/21 at 12:00; Stop 05/29/21 at 12:01; Status DC Bupivacaine HCl (Sensorcaine-Mpf 0.25%) 10 ml 1X ONCE IJ ; Start 05/29/21 at 12:00; Stop 05/29/21 at 12:01; Status DC Iodixanol (Visipaque 320) 100 ml STK-MED ONCE .ROUTE ; Start 05/31/21 at 12:29; Stop 05/31/21 at 12:29; Status DC Lidocaine HCl (Lidocaine 1% 20ml Vial) 20 ml STK-MED ONCE .ROUTE ; Start 05/31/21 at 12:29; Stop 05/31/21 at 12:29; Status DC Heparin Sodium/ Sodium Chloride 500 ml @ As Directed STK-MED ONCE .ROUTE ; Start 05/31/21 at 12:29; Stop 05/31/21 at 12:29; Status DC Midazolam HCl (Versed) 2 mg 1X ONCE IV Last administered on 05/31/21at 15:53; Start 05/31/21 at 12:45; Stop 05/31/21 at 12:46; Status DC Fentanyl Citrate (Fentanyl 2ml Vial) 100 mcg 1X ONCE IV Last administered on 05/31/21at 15:54; Start 05/31/21 at 12:45; Stop 05/31/21 at 12:46; Status DC Iodixanol (Visipaque 320) 100 ml 1X ONCE IART Last administered on 05/31/21at 15:53; Start 05/31/21 at 12:45; Stop 05/31/21 at 12:46; Status DC Lidocaine HCl (Lidocaine 1% 20ml Vial) 20 ml 1X ONCE INJ Last administered on 05/31/21at 15:53; Start 05/31/21 at 12:45; Stop 05/31/21 at 12:46; Status DC Heparin Sodium (Porcine) (Heparin Sodium) 10,000 unit STK-MED ONCE .ROUTE ; Start 05/31/21 at 12:36; Stop 05/31/21 at 12:36; Status DC Info (CONTRAST GIVEN -- Rx MONITORING) 1 each PRN DAILY PRN MC SEE COMMENTS; Start 05/31/21 at 12:45; Stop 06/02/21 at 12:44; Status DC Heparin Sodium (Porcine) (Heparin Sodium) 10,000 unit STK-MED ONCE .ROUTE ; Start 05/31/21 at 13:54; Stop 05/31/21 at 13:54; Status DC Nitroglycerin (Nitroglycerin) 4 mg STK-MED ONCE .ROUTE ; Start 05/31/21 at 13:56; Stop 05/31/21 at 13:57; Status DC Diltiazem HCl (Cardizem Iv Push) 25 mg STK-MED ONCE .ROUTE ; Start 05/31/21 at 13:56; Stop 05/31/21 at 13:57; Status DC Heparin Sodium/ Sodium Chloride 500 ml @ As Directed STK-MED ONCE .ROUTE ; Start 05/31/21 at 14:27; Stop 05/31/21 at 14:27; Status DC Iodixanol (Visipaque 320) 100 ml STK-MED ONCE .ROUTE ; Start 05/31/21 at 15:18; Stop 05/31/21 at 15:19; Status DC Heparin Sodium (Porcine) (Heparin Sodium) 9,000 unit 1X ONCE IV Last administered on 05/31/21at 15:56; Start 05/31/21 at 15:30; Stop 05/31/21 at 15:31; Status DC Diltiazem HCl 10 mg/Nitroglycerin 4 mg/Heparin Sodium (Porcine) 44570 unit/ Miscellaneous 20 ml/Sodium Chloride 1,052 ml @ 1,000 mls/hr 1X ONCE INT CAT Last administered on 05/31/21at 15:30; Start 05/31/21 at 15:30; Stop 05/31/21 at 16:33; Status DC Clopidogrel Bisulfate (Plavix) 300 mg 1X ONCE PO Last administered on 05/31/21at 16:00; Start 05/31/21 at 16:00; Stop 05/31/21 at 16:01; Status DC Clopidogrel Bisulfate (Plavix) 75 mg STK-MED ONCE .ROUTE ; Start 05/31/21 at 15:56; Stop 05/31/21 at 15:56; Status DC Sodium Chloride 1,000 ml @ 75 mls/hr [id number] IV Last administered on 06/03/21at 10:55; Start 05/31/21 at 16:15; Stop 06/04/21 at 12:46; Status DC Clopidogrel Bisulfate (Plavix) 75 mg DAILYWBKFT PO Last administered on 06/05/21at 08:40; Start 06/01/21 at 08:00 Apixaban (Eliquis) 5 mg BID PO Last administered on 06/05/21at 08:41; Start 06/01/21 at 09:00 Nitroglycerin (Nitroglycerin) 4 mg STK-MED ONCE .ROUTE ; Start 05/31/21 at 14:00; Stop 06/02/21 at 08:51; Status DC Potassium Chloride (Klor-Con) 40 meq 1X ONCE PO Last administered on 06/02/21at 13:05; Start 06/02/21 at 11:00; Stop 06/02/21 at 11:01; Status DC Info (Anti-Coagulation Monitoring By Pharmacy) 1 each PRN DAILY PRN MC PER PROTOCOL Last administered on 06/02/21at 13:48; Start 06/02/21 at 13:45 Active Scripts Active Reported Spironolactone 25 Mg Tablet 25 Mg PO DAILY Pantoprazole Sodium (Pantoprazole Sodium) 40 Mg Tablet.dr 40 Mg PO DAILYAC Levetiracetam 750 Mg Tab.er.24h 750 Mg PO DAILY Hydralazine Hcl 25 Mg Tablet 25 Mg PO DAILY Eliquis (Apixaban) 2.5 Mg Tablet 2.5 Mg PO BID Diltiazem 24HR Cd (Diltiazem Hcl) 180 Mg Cap.er.24h 180 Mg PO DAILY Losartan Potassium 100 Mg Tablet 100 Mg PO DAILY Betimol (Timolol) 5 Ml Drops 5 Ml OP BID LAST DOSE: 09/02/15 AM NEXT DOSE: 09/02/15 PM Potassium Chloride 20 Meq Tab.er.prt 2 Tab PO DAILYWBKFT LAST DOSE: 09/02/15 BREAKFAST NEXT DOSE: 09/03/15 BREAKFAST NITROGLYCERIN SubLingual (Nitroglycerin) 0.4 Mg Tab.subl 1 Tab SL UD Latanoprost 2.5 Ml Drops 1 Drop EACHEYE QHS LAST DOSE: 09/01/15 BEDTIME NEXT DOSE: 09/02/15 BEDTIME Lasix (Furosemide) 40 Mg Tablet 1 Tab PO DAILY LAST DOSE: 09/02/15 AM NEXT DOSE: 09/03/15 AM Toviaz (Fesoterodine Fumarate) 4 Mg Tab.er.24h 1 Tab PO DAILY NEXT DOSE: 09/03/15 AM Nexium Capsule (Esomeprazole Magnesium) 40 Mg Capsule.dr 1 Cap PO DAILY LAST DOSE: 09/02/15 AM NEXT DOSE: 09/03/15 AM Cardura (Doxazosin Mesylate) 4 Mg Tablet 1 Tab PO HS LAST DOSE: 09/01/15 BEDTIME NEXT DOSE: 09/02/15 BEDTIME Coreg (Carvedilol) 25 Mg Tablet 1 Tab PO BID LAST DOSE: 09/02/15 AM NEXT DOSE: 09/02/15 PM Alphagan P (Brimonidine Tartrate) 5 Ml Drops 1 Drop EACHEYE BID LAST DOSE: 09/02/15 AM NEXT DOSE: 09/02/15 PM Atorvastatin Calcium 20 Mg Tablet 20 Mg PO HS LAST DOSE: 09/01/15 BEDTIME NEXT DOSE: 09/02/15 BEDTIME Aspir 81 (Aspirin) 81 Mg Tablet. 1 Tab PO DAILY LAST DOSE: 09/02/15 AM NEXT DOSE: 09/03/15 AM Amiodarone Hcl 200 Mg Tablet 100 Tab PO DAILY LAST DOSE: 09/02/15 AM NEXT DOSE: 09/03/15 AM Acetaminophen 500 Mg Tablet 2 Tab PO BID LAST DOSE: 09/02/15 AM NEXT DOSE: 09/02/15 PM Vitals/I & O Vital Sign - Last 24 Hours 06/04/21 06/04/21 06/04/21 06/04/21 11:00 15:00 16:23 19:00 Temp 99.0 98.7 98.5 99.0 98.7 98.5 Pulse 71 70 70 70 Resp 19 18 18 B/P (MAP) 119/59 (79) 127/58 (81) 127/58 133/57 (82) Pulse Ox 95 94 95 O2 Delivery Room Air Room Air Room Air 06/04/21 06/04/21 06/05/21 06/05/21 20:00 23:00 03:53 07:00 Temp 98.1 98.3 97.8 98.1 98.3 97.8 Pulse 65 71 73 Resp 18 20 20 B/P (MAP) 142/52 (82) 116/48 (70) 128/57 (80) Pulse Ox 99 96 92 O2 Delivery Room Air Room Air Room Air Room Air 06/05/21 06/05/21 06/05/21 08:00 08:40 08:40 Pulse 73 73 B/P (MAP) 128/57 128/57 O2 Delivery Room Air Intake and Output 06/04/21 06/04/21 06/05/21 15:00 23:00 07:00 Intake Total 580 ml 300 ml Output Total 0 ml Balance 580 ml 300 ml 0 ml Justifications for Admission Other Justification Debilitation adn generalized weakness DAVID SAUNDERS MD Jun 05, 2021 10:39
--- NOTE | 2021-06-05 10:56 | PDOC ---
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 Severe lateral compartment predominant osteoarthritis of the left knee with chondrocalcinosis and slight genu valgus. Caregiver burden Anemia of chronic disease Severe protein malnutrition Dementia History of atrial fibrillation History of hypertension History of CHF History of CAD History of osteoarthritis History of seizure activity Vascular surgery following for peripheral vascular diseaserecommend angiogram however due to the age and risk factors would recommend also palliative care. Pending further discussion with Continue heel offloading and heel boots Wound care consult for ulcers Resume home cardiac medications PT OT Orthostatic vital signs Eliquis for DVT prophylaxis Protonix GI prophylaxis ADA diet CODE STATUS full Discussed with RN and SW Disposition inpatient management as above DPOA: 31 MIN PT exam, chart review, > 50% of time spent with exam, chart review, pt care coordination. History of Present Illness History of Present Illness 89-year-old male with past medical history of atrial fibrillation, hypertension, GERD, AICD placement, CHF, aortic valve stenosis, CAD, osteoarthritis, anemia who was brought in from [facility] due to worsening generalized weakness. reports that the patient has not been seen by For a long time and she states she cannot take care of him anymore. Most of the events that led up to this point actually started around November 2020 where patient had to remain isolated at home and the was the only one taking care of him. He did have a fall episode where he was required to go to for evaluation. He was subsequently discharged from to [facility] for rehab and then he was sent home afterwards. Because the was not able to take care of him, she was able to use his VA benefits to send him to [facility]. According to the , she states that they did not do much rehab with him and the patient was quarantined for 2 weeks and no room without much interaction. She is quite upset about this and her respite care days ran out and she had to take him home on May 15. presents the patient to [facility] in hopes to have licensed master social worker find placement for the patient to help the for taking care of him. According to the , before November patient was able to ambulate with a walker on his own and go to the kitchen and grab his own self some food and then sit back down. Other than that the patient is unable to make phone calls or do accounting or cook for himself or clean himself. Upon my interview with the patient, patient still thinks he is at [facility] but he is pleasantly confused and is able to answer appropriately questions for immediate basic needs. 05/27: No acute events overnight. Afebrile. Patient seen and examined bedside. No complaints at this time. Duplex ultrasound of the lower extremities completed showing monophasic flow and possibly some narrowing. Will defer to wound care for consulting vascular surgery at this time. 05/28: No acute events overnight. Patient seen and examined bedside. HAIRSPRING INSPECTOR at bedside as well with him to turn down the right side decubitus. There is stool in his sacral ulcer that was cleaned out. Ulcers are all stable and intact. Asked specifically, if the patient wanted to pursue further treatment for his peripheral vascular disease. Patient stated that he did not know what he would and need to discuss further with his . 05/29: No acute events overnight. Patient seen and examined bedside. also at bedside. Family has decided to proceed with vascular intervention. Pending further vascular intervention and evaluation. 05/30: No acute events overnight. Patient seen and examined bedside tolerating breakfast. IR consult placed for possible angiogram on Monday. Appreciate 's evaluation and x-rays are completed. Will defer rest of pain management to Dr Myles and possible steroid injections if pain deems necessary. Patient's chart, labs, images were reviewed and discussed with RN 05/31: Afebrile overnight. To left SFA atherectomy and angioplasty with drug- coated balloon, loaded with plavix per vascular surgery. 06/01: Pain improved today. He overall feels about the same. WBC minimally increased. Started on Plavix and Eliquis today. No CP or SOB. Repeat PT evaluation - SNF vs LTACH 06/02: Afebrile. Complaint of right lateral ankle pain. Otherwise comfortable with rook boots. D/w bedside, she wishes to discuss home rehab vs LTACH, has previously had poor experience with 2 local SNFs. K 3.4 today. Podiatry consulted for nail care. 06/03: Afebrile. Pain is about the same. No shortness of breath or chest pain. Encouraged to work with therapy. His nails been trimmed by podiatry. Discussed with PMR optimize wound healing will need higher level of care on discharge. 06/04: Afebrile. Pain is about the same did not work with therapy. He is asking for assistance in getting his dentures out to clean them. No real complaints. Discussed with niece will need further wound care at SNF. Afebrile. Pain is little better. Still not feeling motivated with therapy. Advised to work with therapy is stimulated avoid long-term care placement. Vitals/I&O Vitals/I&O: Vital Signs Date Time Temp Pulse Resp B/P (MAP) Pulse Ox O2 Delivery O2 Flow Rate FiO2 06/05/21 08:40 73 128/57 06/05/21 08:00 Room Air 06/05/21 07:00 97.8 20 92 97.8 I & O 06/04/21 06/04/21 06/05/21 15:00 23:00 07:00 Intake Total 580 ml 300 ml Output Total 0 ml Balance 580 ml 300 ml 0 ml Physical Exam General: Alert, No acute distress Heart: Regular rate Lungs: Clear Abdomen: Soft, No tenderness Extremities: No edema, Other (THere is superficial ulcerations in both feet with the left involving the heel and plantar foot and the right involving the lateral malleolus.) Skin: Other (His right lateral ankle has in ulcer overlying his malleolus which does not appear to probe to bone, wound edges are clean there is no purulent drainage or fluctuance or crepitus. His left foot has a moderate sized purple blister overlying the fifth met head without an open area, and a heel pressure wound and ulcer that does not have any drainage, fluctuance or crepitus. Is hard to determine the depth of the heel wound however cannot feel or probe to any bone.) Labs Labs: Laboratory Tests Test 06/04/21 11:59 06/04/21 14:42 06/04/21 20:20 06/05/21 07:29 Glucose (Fingerstick) 119 mg/dL (70-99) 106 mg/dL (70-99) 105 mg/dL (70-99) 81 mg/dL (70-99) Comment Review of Relevant I have reviewed the following items shelby (where applicable) has been applied. Justifications for Admission Other Justification Debilitation adn generalized weakness KATE GARDNER MD Jun 05, 2021 10:56
[2021-06-05 11:16] VITALS: BP 116/58
[2021-06-05 15:00] VITALS: BP 122/62
[2021-06-05 19:00] VITALS: BP 127/58
[2021-06-05] MEDS: ATORVASTATIN CALCIUM 20 MG TABLET PO SCH (19:49)
[2021-06-05] MEDS: LORazepam 0.5 MG TABLET PO PRN (19:49)
[2021-06-05] MEDS: METHOCARBAMOL 500 MG TABLET PO PRN (19:49)
[2021-06-05] MEDS: LATANOPROST 0.005% OPHTH SOLUTION 2.5ML BOTTLE. OU SCH (19:50)
[2021-06-05 23:00] VITALS: BP 122/51
[2021-06-06 03:00] VITALS: BP 146/66
[2021-06-06] MEDS: PANTOPRAZOLE 40 MG TABLET.DR. PO SCH (05:53)
[2021-06-06 07:03] VITALS: BP 142/70
[2021-06-06] MEDS: MEGESTROL 400 MG/10 ML ORAL.SUSP. PO SCH ×2 (10:21→20:46)
[2021-06-06] MEDS: ASPIRIN ENTERIC COATED 81 MG TABLET.DR. PO SCH (10:22)
[2021-06-06] MEDS: CLOPIDOGREL BISULFATE 75 MG TABLET PO SCH (10:22)
[2021-06-06] MEDS: APIXABAN 5 MG TABLET. PO SCH ×2 (10:22→20:46)
[2021-06-06] MEDS: CARVEDILOL 12.5 MG TABLET. PO SCH ×2 (10:22→18:18)
[2021-06-06] MEDS: BRIMONIDINE 0.2% OPHTH SOLUTION 5ML BOTTLE. OU SCH ×2 (10:23→20:47)
[2021-06-06] MEDS: TIMOLOL 0.5% OPHTH SOLUTION 5ML BOTTLE. OD SCH ×2 (10:23→20:47)
[2021-06-06] MEDS: AMIODARONE HCL 200 MG TABLET. PO SCH (10:26)
[2021-06-06] MEDS: levETIRAcetam 500 MG/5 ML ORAL SOLUTION. PO SCH ×2 (10:26→20:45)
[2021-06-06] MEDS: DICLOFENAC SODIUM 1% TOPICAL GEL 100GM TUBE. TP SCH ×2 (10:28→20:46)
--- NOTE | 2021-06-06 10:56 | PDOC ---
[employer] PROGRESS NOTE Date of Service DOS: DATE: 06/06/21 TIME: 10:54 Chief Complaint Chief Complaint Assessment/Plan Peripheral vascular disease bilaterally, with focal narrowing bilaterally in the profunda femoris Generalized weakness Sacral decubitus ulcers Bilateral heel ulcers Multilevel degenerative change throughout the lumbar spine Mild bilateral hip osteoarthritis. 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 Severe lateral compartment predominant osteoarthritis of the left knee with chondrocalcinosis and slight genu valgus. Caregiver burden Anemia of chronic disease Severe protein malnutrition Dementia History of atrial fibrillation History of hypertension History of CHF History of CAD History of osteoarthritis History of seizure activity Vascular surgery following for peripheral vascular diseaserecommend further angiogram however due to the age and risk factors would recommend also palliative care. Pending further discussion with Continue heel offloading and heel boots Wound care consult for ulcers Resume home cardiac medications PT OT Orthostatic vital signs Eliquis for DVT prophylaxis Protonix GI prophylaxis ADA diet CODE STATUS full Discussed with RN and SW Disposition inpatient management as above DPOA: and niece 32 MIN PT exam, chart review, > 50% of time spent with exam, chart review, pt care coordination. History of Present Illness History of Present Illness 89-year-old male with past medical history of atrial fibrillation, hypertension, GERD, AICD placement, CHF, aortic valve stenosis, CAD, osteoarthritis, anemia who was brought in from [facility] due to worsening generalized weakness. reports that the patient has not been seen by For a long time and she states she cannot take care of him anymore. Most of the events that led up to this point actually started around November 2020 where patient had to remain isolated at home and the was the only one taking care of him. He did have a fall episode where he was required to go to for evaluation. He was subsequently discharged from to [facility] for rehab and then he was sent home afterwards. Because the was not able to take care of him, she was able to use his VA benefits to send him to [facility] [place]. According to the , she states that they did not do much rehab with him and the patient was quarantined for 2 weeks and no room without much interaction. She is quite upset about this and her respite care days ran out and she had to take him home on May 15. presents the patient to [facility] in hopes to have social worker assistant find placement for the patient to help the for taking care of him. According to the , before November patient was able to ambulate with a walker on his own and go to the kitchen and grab his own self some food and then sit back down. Other than that the patient is unable to make phone calls or do acco unting or cook for himself or clean himself. Upon my interview with the patient, patient still thinks he is at [facility] but he is pleasantly confused and is able to answer appropriately questions for immediate basic needs. 05/27: No acute events overnight. Afebrile. Patient seen and examined bedside. No complaints at this time. Duplex ultrasound of the lower extremities completed showing monophasic flow and possibly some narrowing. Will defer to wound care for consulting vascular surgery at this time. 05/28: No acute events overnight. Patient seen and examined bedside. DIGITAL CAMPAIGN SPECIALIST at bedside as well with him to turn down the right side decubitus. There is stool in his sacral ulcer that was cleaned out. Ulcers are all stable and intact. Asked specifically, if the patient wanted to pursue further treatment for his peripheral vascular disease. Patient stated that he did not know what he would and need to discuss further with his . 05/29: No acute events overnight. Patient seen and examined bedside. also at bedside. Family has decided to proceed with vascular intervention. Pending further vascular intervention and evaluation. 05/30: No acute events overnight. Patient seen and examined bedside tolerating breakfast. IR consult placed for possible angiogram on Monday. Appreciate 's evaluation and x-rays are completed. Will defer rest of pain management to Dr Myles and possible steroid injections if pain deems necessary. Patient's chart, labs, images were reviewed and discussed with RN 05/31: Afebrile overnight. To left SFA atherectomy and angioplasty with drug- coated balloon, loaded with plavix per vascular surgery. 06/01: Pain improved today. He overall feels about the same. WBC minimally increased. Started on Plavix and Eliquis today. No CP or SOB. Repeat PT evaluation - SNF vs LTACH 06/02: Afebrile. Complaint of right lateral ankle pain. Otherwise comfortable with rook boots. D/w bedside, she wishes to discuss home rehab vs LTACH, has previously had poor experience with 2 local SNFs. K 3.4 today. Podiatry consulted for nail care. 06/03: Afebrile. Pain is about the same. No shortness of breath or chest pain. Encouraged to work with therapy. His nails been trimmed by podiatry. Discussed with PMR optimize wound healing will need higher level of care on discharge. 06/04: Afebrile. Pain is about the same did not work with therapy. He is asking for assistance in getting his dentures out to clean them. No real complaints. Discussed with niece will need further wound care at SNF. 06/05: Afebrile. Pain is little better. Still not feeling motivated with therapy. Advised to work with therapy in order to avoid long-term care placement. Afebrile. Pain stable. Says he wants to rest. No shortness of breath or chest pain. Given his wounds discussed with family rehab placement name multiple SNF and he did not meet criteria for LTACH earlier. Encouraged to continue working with therapy Vitals/I&O Vitals/I&O: Vital Signs Date Time Temp Pulse Resp B/P (MAP) Pulse Ox O2 Delivery O2 Flow Rate FiO2 06/06/21 10:26 71 142/70 06/06/21 07:03 97.9 20 93 Room Air 97.9 I & O 06/05/21 06/05/21 06/06/21 15:00 23:00 07:00 Intake Total 400 ml 200 ml Output Total 0 ml Balance 400 ml 200 ml 0 ml Physical Exam General: Alert, No acute distress Heart: Regular rate Lungs: Clear Abdomen: Soft, No tenderness Extremities: No edema, Other (THere is superficial ulcerations in both feet with the left involving the heel and plantar foot and the right involving the lateral malleolus.) Skin: Other (His right lateral ankle has in ulcer overlying his malleolus which does not appear to probe to bone, wound edges are clean there is no purulent drainage or fluctuance or crepitus. His left foot has a moderate sized purple blister overlying the fifth met head without an open area, and a heel pressure wound and ulcer that does not have any drainage, fluctuance or crepitus. Is hard to determine the depth of the heel wound however cannot feel or probe to any bone.) Labs Labs: Laboratory Tests Test 06/05/21 11:05 06/05/21 16:38 06/05/21 20:51 06/06/21 07:44 Glucose (Fingerstick) 83 mg/dL (70-99) 72 mg/dL (70-99) 101 mg/dL (70-99) 79 mg/dL (70-99) Comment Review of Relevant I have reviewed the following items shelby (where applicable) has been applied. Justifications for Admission Other Justification Debilitation adn generalized weakness KATE GARDNER MD Jun 06, 2021 10:56
[2021-06-06 11:00] VITALS: BP 119/59
[2021-06-06 15:00] VITALS: BP 107/59
[2021-06-06] MEDS: ANTI-COAG MONITOR BY PHARMACY. MC PRN (15:42)
[2021-06-06 19:00] VITALS: BP 123/42
[2021-06-06] MEDS: LORazepam 0.5 MG TABLET PO PRN (20:45)
[2021-06-06] MEDS: ATORVASTATIN CALCIUM 20 MG TABLET PO SCH (20:45)
[2021-06-06] MEDS: METHOCARBAMOL 500 MG TABLET PO PRN (20:46)
[2021-06-06] MEDS: LATANOPROST 0.005% OPHTH SOLUTION 2.5ML BOTTLE. OU SCH (20:46)
[2021-06-06] MEDS: ACETAMINOPHEN 325 MG TABLET. PO PRN (20:46)
[2021-06-06 23:00] VITALS: BP 95/59
[2021-06-07 03:09] VITALS: BP 106/55
[2021-06-07] MEDS: PANTOPRAZOLE 40 MG TABLET.DR. PO SCH (05:44)
[2021-06-07 07:00] VITALS: BP 142/56
[2021-06-07] MEDS: CLOPIDOGREL BISULFATE 75 MG TABLET PO SCH (10:10)
[2021-06-07] MEDS: AMIODARONE HCL 200 MG TABLET. PO SCH (10:10)
[2021-06-07] MEDS: APIXABAN 5 MG TABLET. PO SCH ×2 (10:11→21:37)
[2021-06-07] MEDS: levETIRAcetam 500 MG/5 ML ORAL SOLUTION. PO SCH ×2 (10:11→21:38)
[2021-06-07] MEDS: MEGESTROL 400 MG/10 ML ORAL.SUSP. PO SCH ×2 (10:11→21:38)
[2021-06-07] MEDS: ASPIRIN ENTERIC COATED 81 MG TABLET.DR. PO SCH (10:11)
[2021-06-07] MEDS: CARVEDILOL 12.5 MG TABLET. PO SCH ×2 (10:11→18:43)
[2021-06-07] MEDS: DICLOFENAC SODIUM 1% TOPICAL GEL 100GM TUBE. TP SCH ×2 (10:12→21:00)
[2021-06-07] MEDS: BRIMONIDINE 0.2% OPHTH SOLUTION 5ML BOTTLE. OU SCH ×2 (10:12→21:39)
[2021-06-07] MEDS: TIMOLOL 0.5% OPHTH SOLUTION 5ML BOTTLE. OD SCH ×2 (10:12→21:39)
[2021-06-07 11:00] VITALS: BP 137/83
--- NOTE | 2021-06-07 12:52 | PDOC ---
PROGRESS NOTES Date of Service DATE: 06/07/21 TIME: 12:49 Subjective Subjective No new complaints. Objective Objective Vital Signs Date Time Temp Pulse Resp B/P (MAP) Pulse Ox O2 Delivery O2 Flow Rate FiO2 06/07/21 10:11 71 142/56 06/07/21 07:00 98.5 18 96 Room Air 98.5 06/03/21 08:11 2.0 Intake and Output 06/07/21 07:00 Intake Total 590 ml Balance 590 ml Intake Oral 590 ml # Voids 2 # Bowel Movements 1 Physical Exam Physical Exam He is awake,supine in bed without vascular boots in place and his and grand son at bedside and they decided about going home with home health Plan Plan of Care His grandson needs training with wound care before discharge. Comment Review of Relevant I have reviewed the following items shelby (where applicable) has been applied. Labs Laboratory Tests Test 06/05/21 16:38 06/05/21 20:51 06/06/21 07:44 06/06/21 12:38 Glucose (Fingerstick) 72 mg/dL (70-99) 101 mg/dL (70-99) 79 mg/dL (70-99) 84 mg/dL (70-99) Test 06/06/21 16:29 06/06/21 21:18 06/07/21 08:12 06/07/21 11:39 Glucose (Fingerstick) 120 mg/dL (70-99) 111 mg/dL (70-99) 81 mg/dL (70-99) 102 mg/dL (70-99) Laboratory Tests Test 06/06/21 16:29 06/06/21 21:18 06/07/21 08:12 06/07/21 11:39 Glucose (Fingerstick) 120 mg/dL (70-99) 111 mg/dL (70-99) 81 mg/dL (70-99) 102 mg/dL (70-99) Medications Current Medications Amiodarone HCl (Cordarone) 200 mg DAILY PO Last administered on 06/07/21at 10:10; Start 05/26/21 at 13:00 Apixaban (Eliquis) 2.5 mg BID PO Last administered on 05/28/21at 22:49; Start 05/26/21 at 21:00; Stop 05/29/21 at 10:34; Status DC Aspirin (Ecotrin) 81 mg DAILY PO Last administered on 06/07/21at 10:11; Start 05/26/21 at 13:00 Atorvastatin Calcium (Lipitor) 20 mg HS PO Last administered on 06/06/21at 20:45; Start 05/26/21 at 21:00 Latanoprost (Xalatan) 1 drop QHS OU Last administered on 06/06/21at 20:46; Start 05/26/21 at 21:00 Pantoprazole Sodium (Protonix) 40 mg DAILYAC PO Last administered on 06/07/21at 05:44; Start 05/26/21 at 16:30 Brimonidine Tartrate (Alphagan) 1 drop BID OU Last administered on 06/07/21 10:12; Start 05/26/21 at 21:00 Carvedilol (Coreg) 25 mg BIDWMEALS PO Last administered on 06/07/21at 10:11; Start 05/26/21 at 17:00 Levetiracetam (Keppra Oral Soln) 375 mg BID PO Last administered on 06/07/21at 10:11; Start 05/26/21 at 21:00 Timolol Maleate (Timoptic 0.5% [facility]) 1 drop BID OD Last administered on 06/07/21at 10:12; Start 05/26/21 at 21:00 Sennosides (Senna) 17.2 mg PRN BID PRN PO CONSTIPATION; Start 05/26/21 at 12:30 Docusate Sodium (Colace) 100 mg PRN DAILY PRN PO HARD STOOLS; Start 05/26/21 at 12:30 Ondansetron HCl (Zofran) 4 mg PRN Q6HRS PRN IVP NAUSEA/VOMITING; Start 05/26/21 at 12:30 Insulin Human Lispro (HumaLOG) 0-7 UNITS TIDWMEALS SQ ; Start 05/26/21 at 17:00; Stop 05/28/21 at 08:22; Status DC Dextrose (Dextrose 50%-Water Syringe) 12.5 gm PRN Q15MIN PRN IV SEE COMMENTS; Start 05/26/21 at 12:30 Acetaminophen (Tylenol) 650 mg PRN Q4HRS PRN PO TEMP OVER 100.4F OR MILD PAIN Last administered on 06/06/21at 20:46; Start 05/26/21 at 12:30 Lorazepam (Ativan) 0.5 mg PRN Q6HRS PRN PO ANXIETY / AGITATION Last administered on 06/06/21at 20:45; Start 05/26/21 at 12:30 Lorazepam (Ativan Inj) 0.25 mg PRN Q4HRS PRN IV ANXIETY / AGITATION; Start 05/26/21 at 12:30 Oxycodone/ Acetaminophen (Percocet 5/325) 1 tab PRN Q4HRS PRN PO MILD PAIN, 1ST CHOICE; Start 05/26/21 at 12:30; Stop 05/26/21 at 12:41; Status DC Prochlorperazine Edisylate (Compazine) 10 mg PRN Q6HRS PRN IV NAUSEA/VOMITING- 2nd choice; Start 05/26/21 at 12:30 Zolpidem Tartrate (Ambien) 2.5 mg PRN QHS PRN PO INSOMNIA; Start 05/26/21 at 12:30 Methocarbamol (Robaxin) 500 mg PRN Q8HRS PRN PO BACK PAIN or MUSCLE SPASMS Last administered on 06/06/21at 20:46; Start 05/28/21 at 15:00 Diclofenac Sodium (Voltaren) 1 ema BID TP Last administered on 06/07/21at 10:12; Start 05/29/21 at 12:00 Multi-Ingredient Ointment (Hydrocerin, Eucerin Cream) 1 ema PRN Q1HR PRN TP DRY SKIN / SCALING Last administered on 05/29/21at 23:15; Start 05/29/21 at 11:15 Megestrol Acetate (Megace) 400 mg BID PO Last administered on 06/07/21at 10:11; Start 05/29/21 at 12:00 Methylprednisolone Acetate (DEPO-Medrol 40MG VIAL) 40 mg 1X ONCE IM ; Start 05/29/21 at 12:00; Stop 05/29/21 at 12:01; Status DC Methylprednisolone Acetate (DEPO-Medrol 40MG VIAL) 40 mg 1X ONCE INJ ; Start 05/29/21 at 12:00; Stop 05/29/21 at 12:01; Status DC Bupivacaine HCl (Sensorcaine-Mpf 0.25%) 10 ml 1X ONCE IJ ; Start 05/29/21 at 12:00; Stop 05/29/21 at 12:01; Status DC Iodixanol (Visipaque 320) 100 ml STK-MED ONCE .ROUTE ; Start 05/31/21 at 12:29; Stop 05/31/21 at 12:29; Status DC Lidocaine HCl (Lidocaine 1% 20ml Vial) 20 ml STK-MED ONCE .ROUTE ; Start 05/31/21 at 12:29; Stop 05/31/21 at 12:29; Status DC Heparin Sodium/ Sodium Chloride 500 ml @ As Directed STK-MED ONCE .ROUTE ; Start 05/31/21 at 12:29; Stop 05/31/21 at 12:29; Status DC Midazolam HCl (Versed) 2 mg 1X ONCE IV Last administered on 05/31/21at 15:53; Start 05/31/21 at 12:45; Stop 05/31/21 at 12:46; Status DC Fentanyl Citrate (Fentanyl 2ml Vial) 100 mcg 1X ONCE IV Last administered on 05/31/21at 15:54; Start 05/31/21 at 12:45; Stop 05/31/21 at 12:46; Status DC Iodixanol (Visipaque 320) 100 ml 1X ONCE IART Last administered on 05/31/21at 15:53; Start 05/31/21 at 12:45; Stop 05/31/21 at 12:46; Status DC Lidocaine HCl (Lidocaine 1% 20ml Vial) 20 ml 1X ONCE INJ Last administered on 05/31/21at 15:53; Start 05/31/21 at 12:45; Stop 05/31/21 at 12:46; Status DC Heparin Sodium (Porcine) (Heparin Sodium) 10,000 unit STK-MED ONCE .ROUTE ; Start 05/31/21 at 12:36; Stop 05/31/21 at 12:36; Status DC Info (CONTRAST GIVEN -- Rx MONITORING) 1 each PRN DAILY PRN MC SEE COMMENTS; Start 05/31/21 at 12:45; Stop 06/02/21 at 12:44; Status DC Heparin Sodium (Porcine) (Heparin Sodium) 10,000 unit STK-MED ONCE .ROUTE ; Start 05/31/21 at 13:54; Stop 05/31/21 at 13:54; Status DC Nitroglycerin (Nitroglycerin) 4 mg STK-MED ONCE .ROUTE ; Start 05/31/21 at 13:56; Stop 05/31/21 at 13:57; Status DC Diltiazem HCl (Cardizem Iv Push) 25 mg STK-MED ONCE .ROUTE ; Start 05/31/21 at 13:56; Stop 05/31/21 at 13:57; Status DC Heparin Sodium/ Sodium Chloride 500 ml @ As Directed STK-MED ONCE .ROUTE ; Start 05/31/21 at 14:27; Stop 05/31/21 at 14:27; Status DC Iodixanol (Visipaque 320) 100 ml STK-MED ONCE .ROUTE ; Start 05/31/21 at 15:18; Stop 05/31/21 at 15:19; Status DC Heparin Sodium (Porcine) (Heparin Sodium) 9,000 unit 1X ONCE IV Last administered on 05/31/21at 15:56; Start 05/31/21 at 15:30; Stop 05/31/21 at 15:31; Status DC Diltiazem HCl 10 mg/Nitroglycerin 4 mg/Heparin Sodium (Porcine) 15261 unit/ Miscellaneous 20 ml/Sodium Chloride 1,052 ml @ 1,000 mls/hr 1X ONCE INT CAT Last administered on 05/31/21at 15:30; Start 05/31/21 at 15:30; Stop 05/31/21 at 16:33; Status DC Clopidogrel Bisulfate (Plavix) 300 mg 1X ONCE PO Last administered on 05/31/21at 16:00; Start 05/31/21 at 16:00; Stop 05/31/21 at 16:01; Status DC Clopidogrel Bisulfate (Plavix) 75 mg STK-MED ONCE .ROUTE ; Start 05/31/21 at 15:56; Stop 05/31/21 at 15:56; Status DC Sodium Chloride 1,000 ml @ 75 mls/hr [id number] IV Last administered on 06/03/21at 10:55; Start 05/31/21 at 16:15; Stop 06/04/21 at 12:46; Status DC Clopidogrel Bisulfate (Plavix) 75 mg DAILYWBKFT PO Last administered on 06/07/21at 10:10; Start 06/01/21 at 08:00 Apixaban (Eliquis) 5 mg BID PO Last administered on 06/07/21at 10:11; Start 06/01/21 at 09:00 Nitroglycerin (Nitroglycerin) 4 mg STK-MED ONCE .ROUTE ; Start 05/31/21 at 14:00; Stop 06/02/21 at 08:51; Status DC Potassium Chloride (Klor-Con) 40 meq 1X ONCE PO Last administered on 06/02/21at 13:05; Start 06/02/21 at 11:00; Stop 06/02/21 at 11:01; Status DC Info (Anti-Coagulation Monitoring By Pharmacy) 1 each PRN DAILY PRN MC PER PROTOCOL Last administered on 06/06/21at 15:42; Start 06/02/21 at 13:45 Active Scripts Active Reported Spironolactone 25 Mg Tablet 25 Mg PO DAILY Pantoprazole Sodium (Pantoprazole Sodium) 40 Mg Tablet.dr 40 Mg PO DAILYAC Levetiracetam 750 Mg Tab.er.24h 750 Mg PO DAILY Hydralazine Hcl 25 Mg Tablet 25 Mg PO DAILY Eliquis (Apixaban) 2.5 Mg Tablet 2.5 Mg PO BID Diltiazem 24HR Cd (Diltiazem Hcl) 180 Mg Cap.er.24h 180 Mg PO DAILY Losartan Potassium 100 Mg Tablet 100 Mg PO DAILY Betimol (Timolol) 5 Ml Drops 5 Ml OP BID LAST DOSE: 09/02/15 AM NEXT DOSE: 09/02/15 PM Potassium Chloride 20 Meq Tab.er.prt 2 Tab PO DAILYWBKFT LAST DOSE: 09/02/15 BREAKFAST NEXT DOSE: 09/03/15 BREAKFAST NITROGLYCERIN SubLingual (Nitroglycerin) 0.4 Mg Tab.subl 1 Tab SL UD Latanoprost 2.5 Ml Drops 1 Drop EACHEYE QHS LAST DOSE: 09/01/15 BEDTIME NEXT DOSE: 09/02/15 BEDTIME Lasix (Furosemide) 40 Mg Tablet 1 Tab PO DAILY LAST DOSE: 09/02/15 AM NEXT DOSE: 09/03/15 AM Toviaz (Fesoterodine Fumarate) 4 Mg Tab.er.24h 1 Tab PO DAILY NEXT DOSE: 09/03/15 AM Nexium Capsule (Esomeprazole Magnesium) 40 Mg Capsule.dr 1 Cap PO DAILY LAST DOSE: 09/02/15 AM NEXT DOSE: 09/03/15 AM Cardura (Doxazosin Mesylate) 4 Mg Tablet 1 Tab PO HS LAST DOSE: 1/12/16 BEDTIME NEXT DOSE: 09/02/15 BEDTIME Coreg (Carvedilol) 25 Mg Tablet 1 Tab PO BID LAST DOSE: 09/02/15 AM NEXT DOSE: 09/02/15 PM Alphagan P (Brimonidine Tartrate) 5 Ml Drops 1 Drop EACHEYE BID LAST DOSE: 09/02/15 AM NEXT DOSE: 09/02/15 PM Atorvastatin Calcium 20 Mg Tablet 20 Mg PO HS LAST DOSE: 09/01/15 BEDTIME NEXT DOSE: 09/02/15 BEDTIME Aspir 81 (Aspirin) 81 Mg Tablet.dr 1 Tab PO DAILY LAST DOSE: 09/02/15 AM NEXT DOSE: 09/03/15 AM Amiodarone Hcl 200 Mg Tablet 100 Tab PO DAILY LAST DOSE: 09/02/15 AM NEXT DOSE: 09/03/15 AM Acetaminophen 500 Mg Tablet 2 Tab PO BID LAST DOSE: 09/02/15 AM NEXT DOSE: 09/02/15 PM Vitals/I & O Vital Sign - Last 24 Hours 06/06/21 06/06/21 06/06/21 06/06/21 15:00 18:18 19:00 20:00 Temp 97.8 98.3 97.8 98.3 Pulse 71 71 77 Resp 18 20 B/P (MAP) 107/59 (75) 107/59 123/42 (69) Pulse Ox 92 93 O2 Delivery Room Air Room Air Room Air 06/06/21 06/07/21 06/07/21 06/07/21 23:00 03:09 07:00 10:10 Temp 98.3 97.5 98.5 98.3 97.5 98.5 Pulse 70 72 71 71 Resp 18 18 18 B/P (MAP) 95/59 (71) 106/55 (72) 142/56 (84) 142/56 Pulse Ox 94 93 96 O2 Delivery Room Air Room Air Room Air 06/07/21 10:11 Pulse 71 B/P (MAP) 142/56 Intake and Output 06/06/21 06/06/21 06/07/21 15:00 23:00 07:00 Intake Total 200 ml 150 ml 240 ml Balance 200 ml 150 ml 240 ml Justifications for Admission Other Justification Debilitation adn generalized weakness DAVID SAUNDERS MD Jun 07, 2021 12:52
--- NOTE | 2021-06-07 13:11 | NUR ---
SW following. Discussed with RN, pt from home with , room air, regular diet. Dr. Jose planning on potentially speaking with pt's niece/DPOA about hospice, pt did not want to eat anything yesterday. Rapid COVID-19 negative.SW will continue to follow.
[2021-06-07] MEDS ORDERED: CLOPIDOGREL BISULFATE 75 MG TABLET PO ONE (13:45)
--- NOTE | 2021-06-07 14:14 | PDOC ---
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 Severe lateral compartment predominant osteoarthritis of the left knee with chondrocalcinosis and slight genu valgus. Caregiver burden Anemia of chronic disease Severe protein malnutrition Dementia History of atrial fibrillation History of hypertension History of CHF History of CAD History of osteoarthritis History of seizure activity Vascular surgery following for peripheral vascular diseaserecommend further angiogram however due to the age and risk factors would recommend also palliative care. Pending further discussion with Continue heel offloading and heel boots Wound care consult for ulcers Resume home cardiac medications PT OT Orthostatic vital signs Eliquis for DVT prophylaxis Protonix GI prophylaxis ADA diet CODE STATUS full Discussed with RN and SW Disposition inpatient management as above DPOA: and niece History of Present Illness History of Present Illness 89-year-old male with past medical history of atrial fibrillation, hypertension, GERD, AICD placement, CHF, aortic valve stenosis, CAD, osteoarthritis, anemia who was brought in from [facility] due to worsening generalized weakness. reports that the patient has not been seen by For a long time and she states she cannot take care of him anymore. Most of the events that led up to this point actually started around November 2020 where patient had to remain isolated at home and the was the only one taking care of him. He did have a fall episode where he was required to go to for evaluation. He was subsequently discharged from to [facility] for rehab and then he was sent home afterwards. Because the was not able to take care of him, she was able to use his VA benefits to send him to [facility]. According to the , she states that they did not do much rehab with him and the patient was quarantined for 2 weeks and no room without much interaction. She is quite upset about this and her respite care days ran out and she had to take him home on May 15. presents the patient to [facility] in hopes to have social media designer find placement for the patient to help the for taking care of him. According to the , before November patient was able to ambulate with a walker on his own and go to the kitchen and grab his own self some food and then sit back down. Other than that the patient is unable to make phone calls or do accounting or cook for himself or clean himself. Upon my interview with the patient, patient still thinks he is at [facility] but he is pleasantly confused and is able to answer appropriately questions for immediate basic needs. 05/27: No acute events overnight. Afebrile. Patient seen and examined bedside. No complaints at this time. Duplex ultrasound of the lower extremities completed showing monophasic flow and possibly some narrowing. Will defer to wound care for consulting vascular surgery at this time. 05/28: No acute events overnight. Patient seen and examined bedside. AVIATION MECHANIC at bedside as well with him to turn down the right side decubitus. There is stool in his sacral ulcer that was cleaned out. Ulcers are all stable and intact. Asked specifically, if the patient wanted to pursue further treatment for his peripheral vascular disease. Patient stated that he did not know what he would and need to discuss further with his . 05/29: No acute events overnight. Patient seen and examined bedside. also at bedside. Family has decided to proceed with vascular intervention. Pending further vascular intervention and evaluation. 05/30: No acute events overnight. Patient seen and examined bedside tolerating breakfast. IR consult placed for possible angiogram on Monday. Appreciate 's evaluation and x-rays are completed. Will defer rest of pain management to Dr Myles and possible steroid injections if pain deems necessary. Patient's chart, labs, images were reviewed and discussed with RN 05/31: Afebrile overnight. To left SFA atherectomy and angioplasty with drug- coated balloon, loaded with plavix per vascular surgery. 06/01: Pain improved today. He overall feels about the same. WBC minimally increased. Started on Plavix and Eliquis today. No CP or SOB. Repeat PT evaluation - SNF vs LTACH 06/02: Afebrile. Complaint of right lateral ankle pain. Otherwise comfortable with rook boots. D/w bedside, she wishes to discuss home rehab vs LTACH, has previously had poor experience with 2 local SNFs. K 3.4 today. Podiatry consulted for nail care. 06/03: Afebrile. Pain is about the same. No shortness of breath or chest pain. Encouraged to work with therapy. His nails been trimmed by podiatry. Discussed with PMR optimize wound healing will need higher level of care on discharge. 06/04: Afebrile. Pain is about the same did not work with therapy. He is asking for assistance in getting his dentures out to clean them. No real complaints. Discussed with niece will need further wound care at SNF. 06/05: Afebrile. Pain is little better. Still not feeling motivated with therapy. Advised to work with therapy in order to avoid long-term care placement. Afebrile. Pain stable. Says he wants to rest. No shortness of breath or chest pain. Given his wounds discussed with family rehab placement name multiple SNF and he did not meet criteria for LTACH earlier. Encouraged to continue working with therapy 06/07 Patient evaluated examined at bedside. Informed him the importance of working with therapy today. D wound still quite notable wound care following still. Patient will need placement, will try to discuss this with patient's niece today I am able to get a hold of her. No need for antibiotics. Continuing current plan, vascular surgery following Vitals/I&O Vitals/I&O: Vital Signs Date Time Temp Pulse Resp B/P (MAP) Pulse Ox O2 Delivery O2 Flow Rate FiO2 06/07/21 11:00 98.3 67 18 137/83 (101) 96 Room Air 98.3 I & O 06/06/21 06/06/21 06/07/21 14:59 22:59 06:59 Intake Total 200 ml 150 ml 240 ml Balance 200 ml 150 ml 240 ml Physical Exam General: Alert, No acute distress Heart: Regular rate Lungs: Clear Abdomen: Soft, No tenderness Extremities: No edema, Other (THere is superficial ulcerations in both feet with the left involving the heel and plantar foot and the right involving the lateral malleolus.) Skin: Other (His right lateral ankle has in ulcer overlying his malleolus which does not appear to probe to bone, wound edges are clean there is no purulent drainage or fluctuance or crepitus. His left foot has a moderate sized purple blister overlying the fifth met head without an open area, and a heel pressure wound and ulcer that does not have any drainage, fluctuance or crepitus. Is hard to determine the depth of the heel wound however cannot feel or probe to any bone.) Labs Labs: Laboratory Tests Test 06/06/21 16:29 06/06/21 21:18 06/07/21 08:12 06/07/21 11:39 Glucose (Fingerstick) 120 mg/dL (70-99) 111 mg/dL (70-99) 81 mg/dL (70-99) 102 mg/dL (70-99) Comment Review of Relevant I have reviewed the following items shelby (where applicable) has been applied. Medications: Current Medications Medications (Trade) Dose Ordered Sig/Shital Route PRN Reason Start Time Stop Time Status Last Admin Dose Admin Clopidogrel Bisulfate (Plavix) 300 mg 1X ONCE PO 06/07/21 13:45 06/07/21 13:48 DC 05/31/21 16:00 Justifications for Admission Other Justification Debilitation adn generalized weakness KATE KIMBLE MD Jun 07, 2021 14:14
[2021-06-07 15:00] VITALS: BP 124/48
[2021-06-07 19:00] VITALS: BP 114/47
[2021-06-07] MEDS: ATORVASTATIN CALCIUM 20 MG TABLET PO SCH (21:37)
[2021-06-07] MEDS: LATANOPROST 0.005% OPHTH SOLUTION 2.5ML BOTTLE. OU SCH (21:38)
[2021-06-07] MEDS: ACETAMINOPHEN 325 MG TABLET. PO PRN (21:38)
[2021-06-07] MEDS: METHOCARBAMOL 500 MG TABLET PO PRN (21:38)
[2021-06-07] MEDS: LORazepam 0.5 MG TABLET PO PRN (21:38)
[2021-06-07 23:00] VITALS: BP 126/54
[2021-06-08 03:47] VITALS: BP 138/63
[2021-06-08 07:00] VITALS: BP 122/52
[2021-06-08] MEDS: ASPIRIN ENTERIC COATED 81 MG TABLET.DR. PO SCH (09:06)
[2021-06-08] MEDS: MEGESTROL 400 MG/10 ML ORAL.SUSP. PO SCH ×2 (09:06→20:03)
[2021-06-08] MEDS: PANTOPRAZOLE 40 MG TABLET.DR. PO SCH (09:06)
[2021-06-08] MEDS: DICLOFENAC SODIUM 1% TOPICAL GEL 100GM TUBE. TP SCH ×2 (09:07→20:06)
[2021-06-08] MEDS: levETIRAcetam 500 MG/5 ML ORAL SOLUTION. PO SCH ×2 (09:07→20:04)
[2021-06-08] MEDS: APIXABAN 5 MG TABLET. PO SCH ×2 (09:07→20:06)
[2021-06-08] MEDS: CARVEDILOL 12.5 MG TABLET. PO SCH ×2 (09:08→17:45)
[2021-06-08] MEDS: AMIODARONE HCL 200 MG TABLET. PO SCH (09:09)
[2021-06-08] MEDS: CLOPIDOGREL BISULFATE 75 MG TABLET PO SCH (09:09)
[2021-06-08] MEDS: TIMOLOL 0.5% OPHTH SOLUTION 5ML BOTTLE. OD SCH ×2 (09:09→20:07)
[2021-06-08] MEDS: BRIMONIDINE 0.2% OPHTH SOLUTION 5ML BOTTLE. OU SCH ×2 (09:09→20:07)
--- NOTE | 2021-06-08 09:35 | PDOC ---
PROGRESS NOTES Date of Service DATE: 06/08/21 TIME: 09:30 Subjective Subjective No new complaints. Objective Objective Vital Signs Date Time Temp Pulse Resp B/P (MAP) Pulse Ox O2 Delivery O2 Flow Rate FiO2 06/08/21 09:09 69 122/52 06/08/21 07:00 98.7 18 95 Room Air 98.7 06/03/21 08:11 2.0 Intake and Output 06/08/21 07:00 Intake Total 917 ml Balance 917 ml Intake Oral 917 ml # Voids 2 # Bowel Movements 2 Physical Exam Physical Exam He is awake in bed but seems to be disoriented about where he is. He had open wound left heel and very much softened skin over right heel and he had vascular boots in bedside chair. Plan Plan of Care To try to obtain PRAFO boot to help keep pressure off heel to help with wound healing. Comment Review of Relevant I have reviewed the following items shelby (where applicable) has been applied. Labs Laboratory Tests Test 06/06/21 12:38 06/06/21 16:29 06/06/21 21:18 06/07/21 08:12 Glucose (Fingerstick) 84 mg/dL (70-99) 120 mg/dL (70-99) 111 mg/dL (70-99) 81 mg/dL (70-99) Test 06/07/21 11:39 06/07/21 16:40 06/08/21 07:58 Glucose (Fingerstick) 102 mg/dL (70-99) 89 mg/dL (70-99) 94 mg/dL (70-99) Laboratory Tests Test 06/07/21 11:39 06/07/21 16:40 06/08/21 07:58 Glucose (Fingerstick) 102 mg/dL (70-99) 89 mg/dL (70-99) 94 mg/dL (70-99) Medications Current Medications Amiodarone HCl (Cordarone) 200 mg DAILY PO Last administered on 06/08/21at 09:09; Start 05/26/21 at 13:00 Apixaban (Eliquis) 2.5 mg BID PO Last administered on 05/28/21at 22:49; Start 05/26/21 at 21:00; Stop 05/29/21 at 10:34; Status DC Aspirin (Ecotrin) 81 mg DAILY PO Last administered on 06/08/21 09:06; Start 05/26/21 at 13:00 Atorvastatin Calcium (Lipitor) 20 mg HS PO Last administered on 06/07/21at 21:37; Start 05/26/21 at 21:00 Latanoprost (Xalatan) 1 drop QHS OU Last administered on 06/07/21at 21:38; Start 05/26/21 at 21:00 Pantoprazole Sodium (Protonix) 40 mg DAILYAC PO Last administered on 06/08/21 09:06; Start 05/26/21 at 16:30 Brimonidine Tartrate (Alphagan) 1 drop BID OU Last administered on 06/08/21 09:09; Start 05/26/21 at 21:00 Carvedilol (Coreg) 25 mg BIDWMEALS PO Last administered on 06/08/21at 09:08; Start 05/26/21 at 17:00 Levetiracetam (Keppra Oral Soln) 375 mg BID PO Last administered on 06/08/21at 09:07; Start 05/26/21 at 21:00 Timolol Maleate (Timoptic 0.5% [facility]) 1 drop BID OD Last administered on 06/08/21 09:09; Start 05/26/21 at 21:00 Sennosides (Senna) 17.2 mg PRN BID PRN PO CONSTIPATION; Start 05/26/21 at 12:30 Docusate Sodium (Colace) 100 mg PRN DAILY PRN PO HARD STOOLS; Start 05/26/21 at 12:30 Ondansetron HCl (Zofran) 4 mg PRN Q6HRS PRN IVP NAUSEA/VOMITING; Start 05/26/21 at 12:30 Insulin Human Lispro (HumaLOG) 0-7 UNITS TIDWMEALS SQ ; Start 05/26/21 at 17:00; Stop 05/28/21 at 08:22; Status DC Dextrose (Dextrose 50%-Water Syringe) 12.5 gm PRN Q15MIN PRN IV SEE COMMENTS; Start 05/26/21 at 12:30 Acetaminophen (Tylenol) 650 mg PRN Q4HRS PRN PO TEMP OVER 100.4F OR MILD PAIN Last administered on 06/07/21at 21:38; Start 05/26/21 at 12:30 Lorazepam (Ativan) 0.5 mg PRN Q6HRS PRN PO ANXIETY / AGITATION Last administered on 06/07/21at 21:38; Start 05/26/21 at 12:30 Lorazepam (Ativan Inj) 0.25 mg PRN Q4HRS PRN IV ANXIETY / AGITATION; Start 05/26/21 at 12:30 Oxycodone/ Acetaminophen (Percocet 5/325) 1 tab PRN Q4HRS PRN PO MILD PAIN, 1ST CHOICE; Start 05/26/21 at 12:30; Stop 05/26/21 at 12:41; Status DC Prochlorperazine Edisylate (Compazine) 10 mg PRN Q6HRS PRN IV NAUSEA/VOMITING- 2nd choice; Start 05/26/21 at 12:30 Zolpidem Tartrate (Ambien) 2.5 mg PRN QHS PRN PO INSOMNIA; Start 05/26/21 at 12:30 Methocarbamol (Robaxin) 500 mg PRN Q8HRS PRN PO BACK PAIN or MUSCLE SPASMS Last administered on 06/07/21at 21:38; Start 05/28/21 at 15:00 Diclofenac Sodium (Voltaren) 1 ema BID TP Last administered on 06/08/21at 09:07; Start 05/29/21 at 12:00 Multi-Ingredient Ointment (Hydrocerin, Eucerin Cream) 1 ema PRN Q1HR PRN TP DRY SKIN / SCALING Last administered on 05/29/21at 23:15; Start 05/29/21 at 11:15 Megestrol Acetate (Megace) 400 mg BID PO Last administered on 06/08/21at 09:06; Start 05/29/21 at 12:00 Methylprednisolone Acetate (DEPO-Medrol 40MG VIAL) 40 mg 1X ONCE IM ; Start 05/29/21 at 12:00; Stop 05/29/21 at 12:01; Status DC Methylprednisolone Acetate (DEPO-Medrol 40MG VIAL) 40 mg 1X ONCE INJ ; Start 05/29/21 at 12:00; Stop 05/29/21 at 12:01; Status DC Bupivacaine HCl (Sensorcaine-Mpf 0.25%) 10 ml 1X ONCE IJ ; Start 05/29/21 at 12:00; Stop 05/29/21 at 12:01; Status DC Iodixanol (Visipaque 320) 100 ml STK-MED ONCE .ROUTE ; Start 05/31/21 at 12:29; Stop 05/31/21 at 12:29; Status DC Lidocaine HCl (Lidocaine 1% 20ml Vial) 20 ml STK-MED ONCE .ROUTE ; Start 05/31/21 at 12:29; Stop 05/31/21 at 12:29; Status DC Heparin Sodium/ Sodium Chloride 500 ml @ As Directed STK-MED ONCE .ROUTE ; Start 05/31/21 at 12:29; Stop 05/31/21 at 12:29; Status DC Midazolam HCl (Versed) 2 mg 1X ONCE IV Last administered on 05/31/21at 15:53; Start 05/31/21 at 12:45; Stop 05/31/21 at 12:46; Status DC Fentanyl Citrate (Fentanyl 2ml Vial) 100 mcg 1X ONCE IV Last administered on 05/31/21at 15:54; Start 05/31/21 at 12:45; Stop 05/31/21 at 12:46; Status DC Iodixanol (Visipaque 320) 100 ml 1X ONCE IART Last administered on 05/31/21at 15:53; Start 05/31/21 at 12:45; Stop 05/31/21 at 12:46; Status DC Lidocaine HCl (Lidocaine 1% 20ml Vial) 20 ml 1X ONCE INJ Last administered on 05/31/21at 15:53; Start 05/31/21 at 12:45; Stop 05/31/21 at 12:46; Status DC Heparin Sodium (Porcine) (Heparin Sodium) 10,000 unit STK-MED ONCE .ROUTE ; Start 05/31/21 at 12:36; Stop 05/31/21 at 12:36; Status DC Info (CONTRAST GIVEN -- Rx MONITORING) 1 each PRN DAILY PRN MC SEE COMMENTS; Start 05/31/21 at 12:45; Stop 06/02/21 at 12:44; Status DC Heparin Sodium (Porcine) (Heparin Sodium) 10,000 unit STK-MED ONCE .ROUTE ; Start 05/31/21 at 13:54; Stop 05/31/21 at 13:54; Status DC Nitroglycerin (Nitroglycerin) 4 mg STK-MED ONCE .ROUTE ; Start 05/31/21 at 13:56; Stop 05/31/21 at 13:57; Status DC Diltiazem HCl (Cardizem Iv Push) 25 mg STK-MED ONCE .ROUTE ; Start 05/31/21 at 13:56; Stop 05/31/21 at 13:57; Status DC Heparin Sodium/ Sodium Chloride 500 ml @ As Directed STK-MED ONCE .ROUTE ; Start 05/31/21 at 14:27; Stop 05/31/21 at 14:27; Status DC Iodixanol (Visipaque 320) 100 ml STK-MED ONCE .ROUTE ; Start 05/31/21 at 15:18; Stop 05/31/21 at 15:19; Status DC Heparin Sodium (Porcine) (Heparin Sodium) 9,000 unit 1X ONCE IV Last administered on 05/31/21at 15:56; Start 05/31/21 at 15:30; Stop 05/31/21 at 15:31; Status DC Diltiazem HCl 10 mg/Nitroglycerin 4 mg/Heparin Sodium (Porcine) 43191 unit/ Miscellaneous 20 ml/Sodium Chloride 1,052 ml @ 1,000 mls/hr 1X ONCE INT CAT Last administered on 05/31/21at 15:30; Start 05/31/21 at 15:30; Stop 05/31/21 at 16:33; Status DC Clopidogrel Bisulfate (Plavix) 300 mg 1X ONCE PO Last administered on 05/31/21at 16:00; Start 05/31/21 at 16:00; Stop 05/31/21 at 16:01; Status DC Clopidogrel Bisulfate (Plavix) 75 mg STK-MED ONCE .ROUTE ; Start 05/31/21 at 15:56; Stop 05/31/21 at 15:56; Status DC Sodium Chloride 1,000 ml @ 75 mls/hr [id number] IV Last administered on 06/03/21at 10:55; Start 05/31/21 at 16:15; Stop 06/04/21 at 12:46; Status DC Clopidogrel Bisulfate (Plavix) 75 mg DAILYWBKFT PO Last administered on 06/08/21at 09:09; Start 06/01/21 at 08:00 Apixaban (Eliquis) 5 mg BID PO Last administered on 06/08/21at 09:07; Start 06/01/21 at 09:00 Nitroglycerin (Nitroglycerin) 4 mg STK-MED ONCE .ROUTE ; Start 05/31/21 at 14:00; Stop 06/02/21 at 08:51; Status DC Potassium Chloride (Klor-Con) 40 meq 1X ONCE PO Last administered on 06/02/21at 13:05; Start 06/02/21 at 11:00; Stop 06/02/21 at 11:01; Status DC Info (Anti-Coagulation Monitoring By Pharmacy) 1 each PRN DAILY PRN MC PER P ROTOCOL Last administered on 06/06/21at 15:42; Start 06/02/21 at 13:45 Clopidogrel Bisulfate (Plavix) 300 mg 1X ONCE PO Last administered on 05/31/21at 16:00; Start 06/07/21 at 13:45; Stop 06/07/21 at 13:48; Status DC Active Scripts Active Reported Spironolactone 25 Mg Tablet 25 Mg PO DAILY Pantoprazole Sodium (Pantoprazole Sodium) 40 Mg Tablet.dr 40 Mg PO DAILYAC Levetiracetam 750 Mg Tab.er.24h 750 Mg PO DAILY Hydralazine Hcl 25 Mg Tablet 25 Mg PO DAILY Eliquis (Apixaban) 2.5 Mg Tablet 2.5 Mg PO BID Diltiazem 24HR Cd (Diltiazem Hcl) 180 Mg Cap.er.24h 180 Mg PO DAILY Losartan Potassium 100 Mg Tablet 100 Mg PO DAILY Betimol (Timolol) 5 Ml Drops 5 Ml OP BID LAST DOSE: 09/02/15 AM NEXT DOSE: 09/02/15 PM Potassium Chloride 20 Meq Tab.er.prt 2 Tab PO DAILYWBKFT LAST DOSE: 09/02/15 BREAKFAST NEXT DOSE: 09/03/15 BREAKFAST NITROGLYCERIN SubLingual (Nitroglycerin) 0.4 Mg Tab.subl 1 Tab SL UD Latanoprost 2.5 Ml Drops 1 Drop EACHEYE QHS LAST DOSE: 09/01/15 BEDTIME NEXT DOSE: 09/02/15 BEDTIME Lasix (Furosemide) 40 Mg Tablet 1 Tab PO DAILY LAST DOSE: 09/02/15 AM NEXT DOSE: 09/03/15 AM Toviaz (Fesoterodine Fumarate) 4 Mg Tab.er.24h 1 Tab PO DAILY NEXT DOSE: 09/03/15 AM Nexium Capsule (Esomeprazole Magnesium) 40 Mg Capsule.dr 1 Cap PO DAILY LAST DOSE: 09/02/15 AM NEXT DOSE: 09/03/15 AM Cardura (Doxazosin Mesylate) 4 Mg Tablet 1 Tab PO HS LAST DOSE: 09/01/15 BEDTIME NEXT DOSE: 09/02/15 BEDTIME Coreg (Carvedilol) 25 Mg Tablet 1 Tab PO BID LAST DOSE: 09/02/15 AM NEXT DOSE: 09/02/15 PM Alphagan P (Brimonidine Tartrate) 5 Ml Drops 1 Drop EACHEYE BID LAST DOSE: 09/02/15 AM NEXT DOSE: 09/02/15 PM Atorvastatin Calcium 20 Mg Tablet 20 Mg PO HS LAST DOSE: 09/01/15 BEDTIME NEXT DOSE: 09/02/15 BEDTIME Aspir 81 (Aspirin) 81 Mg Tablet.dr Guillermo Tab PO DAILY LAST DOSE: 09/02/15 AM NEXT DOSE: 09/03/15 AM Amiodarone Hcl 200 Mg Tablet 100 Tab PO DAILY LAST DOSE: 09/02/15 AM NEXT DOSE: 09/03/15 AM Acetaminophen 500 Mg Tablet 2 Tab PO BID LAST DOSE: 09/02/15 AM NEXT DOSE: 09/02/15 PM Vitals/I & O Vital Sign - Last 24 Hours 06/07/21 06/07/21 06/07/21 06/07/21 10:10 10:11 11:00 15:00 Temp 98.3 98.3 98.3 98.3 Pulse 71 71 67 70 Resp 18 18 B/P (MAP) 142/56 142/56 137/83 (101) 124/48 (73) Pulse Ox 96 97 O2 Delivery Room Air Room Air 06/07/21 06/07/21 06/07/21 06/07/21 18:43 19:00 20:00 23:00 Temp 98.6 98.5 98.6 98.5 Pulse 70 71 70 Resp 18 18 B/P (MAP) 124/48 114/47 (69) 126/54 (78) Pulse Ox 95 97 O2 Delivery Room Air Room Air Room Air 06/08/21 06/08/21 06/08/21 06/08/21 03:47 07:00 09:08 09:09 Temp 98.1 98.7 98.1 98.7 Pulse 70 69 69 69 Resp 18 18 B/P (MAP) 138/63 (88) 122/52 (75) 122/52 122/52 Pulse Ox 96 95 O2 Delivery Room Air Room Air Intake and Output 06/07/21 06/07/21 06/08/21 15:00 23:00 07:00 Intake Total 677 ml 240 ml Balance 677 ml 240 ml Justifications for Admission Other Justification Debilitation adn generalized weakness DAVID SAUNDERS MD Jun 08, 2021 09:34
[2021-06-08 11:00] VITALS: BP 123/54
--- NOTE | 2021-06-08 12:07 | PDOC ---
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 Severe lateral compartment predominant osteoarthritis of the left knee with chondrocalcinosis and slight genu valgus. Caregiver burden Anemia of chronic disease Severe protein malnutrition Dementia History of atrial fibrillation History of hypertension History of CHF History of CAD History of osteoarthritis History of seizure activity Vascular surgery following for peripheral vascular diseaserecommend further angiogram however due to the age and risk factors would recommend also palliative care. Pending further discussion with Continue heel offloading and heel boots Wound care consult for ulcers Resume home cardiac medications PT OT Orthostatic vital signs Eliquis for DVT prophylaxis Protonix GI prophylaxis ADA diet CODE STATUS full Discussed with RN and SW Disposition inpatient management as above DPOA: and niece Discussed with patient's niece for approximately 18 minutes regarding advanced care planning and placement. Family desires for him to come home with home health History of Present Illness History of Present Illness 89-year-old male with past medical history of atrial fibrillation, hypertension, GERD, AICD placement, CHF, aortic valve stenosis, CAD, osteoarthritis, anemia who was brought in from [facility] due to worsening generalized weakness. reports that the patient has not been seen by For a long time and she states she cannot take care of him anymore. Most of the events that led up to this point actually started around November 2020 where patient had to remain isolated at home and the was the only one taking care of him. He did have a fall episode where he was required to go to for evaluation. He was subsequently discharged from to [facility] for rehab and then he was sent home afterwards. Because the was not able to take care of him, she was able to use his VA benefits to send him to [facility]. According to the , she states that they did not do much rehab with him and the patient was quarantined for 2 weeks and no room without much interaction. She is quite upset about this and her respite care days ran out and she had to take him home on May 15. presents the patient to [facility] in hopes to have hospital social worker find placement for the patient to help the for taking care of him. According to the , before November patient was able to ambulate with a walker on his own and go to the kitchen and grab his own self some food and then sit back down. Other than that the patient is unable to make phone calls or do accounting or cook for himself or clean himself. Upon my interview with the patient, patient still thinks he is at [facility] but he is pleasantly confused and is able to answer appropriately questions for immediate basic needs. 05/27: No acute events overnight. Afebrile. Patient seen and examined bedside. No complaints at this time. Duplex ultrasound of the lower extremities completed showing monophasic flow and possibly some narrowing. Will defer to wound care for consulting vascular surgery at this time. 05/28: No acute events overnight. Patient seen and examined bedside. CREAM GATHERER at bedside as well with him to turn down the right side decubitus. There is stool in his sacral ulcer that was cleaned out. Ulcers are all stable and intact. Asked specifically, if the patient wanted to pursue further treatment for his peripheral vascular disease. Patient stated that he did not know what he would and need to discuss further with his . 05/29: No acute events overnight. Patient seen and examined bedside. also at bedside. Family has decided to proceed with vascular intervention. Pending further vascular intervention and evaluation. 05/30: No acute events overnight. Patient seen and examined bedside tolerating breakfast. IR consult placed for possible angiogram on Monday. Appreciate 's evaluation and x-rays are completed. Will defer rest of pain management to Dr Myles and possible steroid injections if pain deems necessary. Patient's chart, labs, images were reviewed and discussed with RN 05/31: Afebrile overnight. To left SFA atherectomy and angioplasty with drug- coated balloon, loaded with plavix per vascular surgery. 06/01: Pain improved today. He overall feels about the same. WBC minimally increased. Started on Plavix and Eliquis today. No CP or SOB. Repeat PT evaluation - SNF vs LTACH 06/02: Afebrile. Complaint of right lateral ankle pain. Otherwise comfortable with rook boots. D/w bedside, she wishes to discuss home rehab vs LTACH, has previously had poor experience with 2 local SNFs. K 3.4 today. Podiatry consulted for nail care. 06/03: Afebrile. Pain is about the same. No shortness of breath or chest pain. Encouraged to work with therapy. His nails been trimmed by podiatry. Discussed with PMR optimize wound healing will need higher level of care on discharge. 06/04: Afebrile. Pain is about the same did not work with therapy. He is asking for assistance in getting his dentures out to clean them. No real complaints. Discussed with niece will need further wound care at SNF. 06/05: Afebrile. Pain is little better. Still not feeling motivated with therapy. Advised to work with therapy in order to avoid long-term care placement. Afebrile. Pain stable. Says he wants to rest. No shortness of breath or chest pain. Given his wounds discussed with family rehab placement name multiple SNF and he did not meet criteria for LTACH earlier. Encouraged to continue working with therapy 06/07 Patient evaluated examined at bedside. Informed him the importance of working with therapy today. D wound still quite notable wound care following still. Patient will need placement, will try to discuss this with patient's niece today I am able to get a hold of her. No need for antibiotics. Continuing current plan, vascular surgery following 06/08 Patient evaluated and examined at bedside. When I entered the room patient was talking at the wall with nobody else in the room. Contacted patient's niece earlier today and she said family would like home with home health. Believe they can manage this with him and his wound care. They are hoping to get their home set up today for plan for discharge tomorrow. Plan of care discussed with bedside RN Vitals/I&O Vitals/I&O: Vital Signs Date Time Temp Pulse Resp B/P (MAP) Pulse Ox O2 Delivery O2 Flow Rate FiO2 06/08/21 11:00 98.3 70 18 123/54 (77) 96 Room Air 98.3 I & O 06/07/21 06/07/21 06/08/21 15:00 23:00 07:00 Intake Total 677 ml 240 ml Balance 677 ml 240 ml Physical Exam General: Alert, No acute distress Heart: Regular rate Lungs: Clear Abdomen: Soft, No tenderness Extremities: No edema, Other (THere is superficial ulcerations in both feet with the left involving the heel and plantar foot and the right involving the lateral malleolus.) Skin: Other (His right lateral ankle has in ulcer overlying his malleolus which does not appear to probe to bone, wound edges are clean there is no purulent drainage or fluctuance or crepitus. His left foot has a moderate sized purple blister overlying the fifth met head without an open area, and a heel pressure wound and ulcer that does not have any drainage, fluctuance or crepitus. Is hard to determine the depth of the heel wound however cannot feel or probe to any bone.) Labs Labs: Laboratory Tests Test 06/07/21 16:40 06/08/21 07:58 Glucose (Fingerstick) 89 mg/dL (70-99) 94 mg/dL (70-99) Comment Review of Relevant I have reviewed the following items shelby (where applicable) has been applied. Medications: Current Medications Medications (Trade) Dose Ordered Sig/Shital Route PRN Reason Start Time Stop Time Status Last Admin Dose Admin Clopidogrel Bisulfate (Plavix) 300 mg 1X ONCE PO 06/07/21 13:45 06/07/21 13:48 DC 05/31/21 16:00 Justifications for Admission Other Justification Debilitation adn generalized weakness KATE KIMBLE MD Jun 08, 2021 12:07
--- NOTE | 2021-06-08 12:09 | SNU/HH DC ---
DISCHARGE WITH HOME HEALTH DISCHARGE INFORMATION: Discharge Date: Jun 09, 2021 Condition on Discharge: Stable CODE STATUS: Code Status: Full HOME HEALTH: Face to Face: I certify this patient is under my care and that I, or a nurse practitioner or yuliet bird[employer] boiler assistant operator working with me, had a face to face encounter that meets the physician face to face encounter requirements with this patient on []. RN For Eval/Treatment: Yes Physical Therapy For: Evalulation/Treatment Occupational Therapy For: Evaluation/Treatment Pt Meets Homebound Status: Frequent falls w/ injury, Poor cognition POST DISCHARGE ORDERS: Activity Instructions for Disc: Activity as tolerated Weight Bearing Status after Di: As tolerated DIET AFTER DISCHARGE: Cardiac CHECKS AFTER DISCHARGE: Checks after discharge: Check blood press - daily, Check your Temp as needed, Weigh Yourself Daily TREATMENT/EQUIPMENT ORDERS: Adaptive Equipment Issued: None CERTIFICATION STATEMENT: Certification Statement: Certification Statement: Based on the above finding, I certify that this patient is confined to the home and needs intermittent assisted care, physical therapy and/or speech therapy, or continues to need occupational therapy.~ This patient is under my care, and I have initiated the establishment of the plan of care.~ This patient will be followed by myself or a community physician who will periodically review the plan of care. Home Meds Active Scripts Clopidogrel Bisulfate (CLOPIDOGREL) 75 Mg Tablet, 75 MG PO DAILYWBKFT for cad for 30 Days, #30 TAB Prov:KATE KIMBLE MD 06/09/21 Methocarbamol (METHOCARBAMOL) 500 Mg Tablet, 500 MG PO PRN Q8HRS PRN for BACK PAIN or MUSCLE SPASMS for 30 Days, #30 TAB Prov:KATE KIMBLE MD 06/09/21 Megestrol Acetate (MEGESTROL ACETATE) 400 Mg/10 Ml Oral.susp, 400 MG PO BID for for appetite for 30 Days, #60 MISC Prov:KATE KIMBLE MD 06/09/21 Reported Medications Pantoprazole Sodium (PANTOPRAZOLE SODIUM ) 40 Mg Tablet.dr, 40 MG PO DAILYAC for GERD, TAB 05/26/21 Levetiracetam (LEVETIRACETAM) 750 Mg Tab.er.24h, 750 MG PO DAILY for seizures, TAB.SR 05/26/21 Hydralazine Hcl (HYDRALAZINE HCL) 25 Mg Tablet, 25 MG PO DAILY for HTN, TAB 05/26/21 Apixaban (ELIQUIS) 2.5 Mg Tablet, 2.5 MG PO BID for cholesterol, TAB 05/26/21 Losartan Potassium (LOSARTAN POTASSIUM) 100 Mg Tablet, 100 MG PO DAILY, TAB 09/05/15 Timolol (BETIMOL) 5 Ml Drops, 5 ML OP BID LAST DOSE: 09/02/15 AM NEXT DOSE: 09/02/15 PM 09/01/15 Nitroglycerin (NITROGLYCERIN SubLingual) 0.4 Mg Tab.subl, 1 TAB SL UD, #25 TAB 3 Refills 09/01/15 Latanoprost (LATANOPROST) 2.5 Ml Drops, 1 DROP EACHEYE QHS, #7.5 ML 3 Refills LAST DOSE: 09/01/15 BEDTIME NEXT DOSE: 09/02/15 BEDTIME 09/01/15 Fesoterodine Fumarate (TOVIAZ) 4 Mg Tab.er.24h, 1 TAB PO DAILY, #30 TAB 11 Refills NEXT DOSE: 09/03/15 AM 09/01/15 Doxazosin Mesylate (CARDURA) 4 Mg Tablet, 1 TAB PO HS, #30 TAB 5 Refills LAST DOSE: 09/01/15 BEDTIME NEXT DOSE: 09/02/15 BEDTIME 09/01/15 Carvedilol (COREG) 25 Mg Tablet, 1 TAB PO BID, #60 TAB 5 Refills LAST DOSE: 09/02/15 AM NEXT DOSE: 09/02/15 PM 09/01/15 Brimonidine Tartrate (ALPHAGAN P) 5 Ml Drops, 1 DROP EACHEYE BID, #15 ML 3 Refills LAST DOSE: 09/02/15 AM NEXT DOSE: 09/02/15 PM 09/01/15 Atorvastatin Calcium (ATORVASTATIN CALCIUM) 20 Mg Tablet, 20 MG PO HS for FOR CHOLESTEROL, #30 TAB 0 Refills LAST DOSE: 09/01/15 BEDTIME NEXT DOSE: 09/02/15 BEDTIME 09/01/15 Aspirin (ASPIR 81) 81 Mg Tablet.dr, 1 TAB PO DAILY, #30 TAB 5 Refills LAST DOSE: 09/02/15 AM NEXT DOSE: 09/03/15 AM 09/01/15 Amiodarone Hcl (AMIODARONE HCL) 200 Mg Tablet, 100 TAB PO DAILY, #90 TAB 1 Refill LAST DOSE: 09/02/15 AM NEXT DOSE: 09/03/15 AM 09/01/15 Acetaminophen (ACETAMINOPHEN) 500 Mg Tablet, 2 TAB PO BID, #60 TAB 1 Refill LAST DOSE: 09/02/15 AM NEXT DOSE: 09/02/15 PM 09/01/15 Discontinued Reported Medications Spironolactone (SPIRONOLACTONE) 25 Mg Tablet, 25 MG PO DAILY for edema, TAB 05/26/21 Diltiazem Hcl (DILTIAZEM 24HR CD) 180 Mg Cap.er.24h, 180 MG PO DAILY, CAP.SR 09/05/15 Potassium Chloride (POTASSIUM CHLORIDE) 20 Meq Tab.er.prt, 2 TAB PO DAILYWBKFT, #180 TAB 3 Refills LAST DOSE: 09/02/15 BREAKFAST NEXT DOSE: 09/03/15 BREAKFAST 09/01/15 Furosemide (LASIX) 40 Mg Tablet, 1 TAB PO DAILY, #90 TAB 1 Refill LAST DOSE: 09/02/15 AM NEXT DOSE: 09/03/15 AM 09/01/15 Esomeprazole Magnesium (NEXIUM CAPSULE) 40 Mg Capsule.dr, 1 CAP PO DAILY, #30 CAP 5 Refills LAST DOSE: 09/02/15 AM NEXT DOSE: 09/03/15 AM 09/01/15 KATE KIMBLE MD Jun 08, 2021 12:08
[2021-06-08 15:00] VITALS: BP 133/62
--- NOTE | 2021-06-08 15:08 | NUR ---
JOSSELIN following. Discussed with RN, Dr. Jose spoke with pt's niece to discuss discharge planning, family have decided to take pt home with home health. Pt's stating they have home health, however JOSSELIN spoke with Daysi at the [facility] - the home health company they arranged declined to return due to pt not being appropriate for home. Daysi had recommended they have private duty caregiving but is not sure the family arranged this. JOSSELIN spoke with Lucian (niece), she advised they have private duty caregiving but want to check about home health also. Lucian is agreeable to [facility], as JOSSELIN explained the difficulty of finding home health for Giselle GARZA. JOSSELIN faxed referral to [facility] - they are double checking pt's insurance and will let SW know the final acceptance decision. Plan for discharge tomorrow with home health. JOSSELIN will continue to follow.
[2021-06-08 19:00] VITALS: BP 137/65
[2021-06-08] MEDS: LORazepam 0.5 MG TABLET PO PRN (20:03)
[2021-06-08] MEDS: METHOCARBAMOL 500 MG TABLET PO PRN (20:04)
[2021-06-08] MEDS: ATORVASTATIN CALCIUM 20 MG TABLET PO SCH (20:04)
[2021-06-08] MEDS: LATANOPROST 0.005% OPHTH SOLUTION 2.5ML BOTTLE. OU SCH (20:07)
[2021-06-08 22:35] VITALS: BP 131/64
[2021-06-09 03:00] VITALS: BP 134/60
[2021-06-09] MEDS: PANTOPRAZOLE 40 MG TABLET.DR. PO SCH (05:52)
[2021-06-09 07:00] VITALS: BP 138/61
[2021-06-09] MEDS ORDERED: MEGE400O4 PO (08:07)
[2021-06-09] MEDS ORDERED: METH-561 PO (08:07)
[2021-06-09] MEDS ORDERED: CLOP75TA PO (08:07)
--- NOTE | 2021-06-09 08:16 | PDOC3 ---
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 Severe lateral compartment predominant osteoarthritis of the left knee with chondrocalcinosis and slight genu valgus. Caregiver burden Anemia of chronic disease Severe protein malnutrition Dementia History of atrial fibrillation History of hypertension History of CHF History of CAD History of osteoarthritis History of seizure activity Vascular surgery following for peripheral vascular diseaserecommend further angiogram however due to the age and risk factors would recommend also palliative care. Pending further discussion with Continue heel offloading and heel boots Wound care consult for ulcers Resume home cardiac medications PT OT Orthostatic vital signs Eliquis for DVT prophylaxis Protonix GI prophylaxis ADA diet CODE STATUS full Discussed with RN and SW Disposition inpatient management as above DPOA: and niece Discussed with patient's niece for approximately 18 minutes regarding advanced care planning and placement. Family desires for him to come home with home health History of Present Illness History of Present Illness 89-year-old male with past medical history of atrial fibrillation, hypertension, GERD, AICD placement, CHF, aortic valve stenosis, CAD, osteoarthritis, anemia who was brought in from [facility] due to worsening generalized weakness. reports that the patient has not been seen by For a long time and she states she cannot take care of him anymore. Most of the events that led up to this point actually started around November 2020 where patient had to remain isolated at home and the was the only one taking care of him. He did have a fall episode where he was required to go to for evaluation. He was [facility] and then he was sent home afterwards. Because the was not able to take care of him, she was able to use his VA benefits to send him to [facility]. According to the , she states shani t they did not do much rehab with him and the patient was quarantined for 2 weeks and no room without much interaction. She is quite upset about this and her respite care days ran out and she had to take him home on May 15. presents the patient to [facility] in hopes to have social and political studies professor find placement for the patient to help the for taking care of him. According to the , before November patient was able to ambulate with a walker on his own and go to the kitchen and grab his own self some food and then sit back down. Other than that the patient is unable to make phone calls or do accounting or cook for himself or clean himself. Upon my interview with the patient, patient still thinks he is at [facility] but he is pleasantly confused and is able to answer appropriately questions for immediate basic needs. 05/27: No acute events overnight. Afebrile. Patient seen and examined bedside. No complaints at this time. Duplex ultrasound of the lower extremities completed showing monophasic flow and possibly some narrowing. Will defer to wound care for consulting vascular surgery at this time. 05/28: No acute events overnight. Patient seen and examined bedside. FLUID PUMP OPERATOR at bedside as well with him to turn down the right side decubitus. There is stool in his sacral ulcer that was cleaned out. Ulcers are all stable and intact. Asked specifically, if the patient wanted to pursue further treatment for his peripheral vascular disease. Patient stated that he did not know what he would and need to discuss further with his . 05/29: No acute events overnight. Patient seen and examined bedside. also at bedside. Family has decided to proceed with vascular intervention. Pending further vascular intervention and evaluation. 05/30: No acute events overnight. Patient seen and examined bedside tolerating breakfast. IR consult placed for possible angiogram on Monday. Appreciate 's evaluation and x-rays are completed. Will defer rest of pain management to Dr Myles and possible steroid injections if pain deems necessary. Patient's chart, labs, images were reviewed and discussed with RN 05/31: Afebrile overnight. To left SFA atherectomy and angioplasty with drug- coated balloon, loaded with plavix per vascular surgery. 06/01: Pain improved today. He overall feels about the same. WBC minimally increased. Started on Plavix and Eliquis today. No CP or SOB. Repeat PT evaluation - SNF vs LTACH 06/02: Afebrile. Complaint of right lateral ankle pain. Otherwise comfortable with rook boots. D/w bedside, she wishes to discuss home rehab vs LTACH, has previously had poor experience with 2 local SNFs. K 3.4 today. Podiatry consulted for nail care. 06/03: Afebrile. Pain is about the same. No shortness of breath or chest pain. Encouraged to work with therapy. His nails been trimmed by podiatry. Discussed with PMR optimize wound healing will need higher level of care on discharge. 06/04: Afebrile. Pain is about the same did not work with therapy. He is asking for assistance in getting his dentures out to clean them. No real complaints. Discussed with niece will need further wound care at SNF. 06/05: Afebrile. Pain is little better. Still not feeling motivated with therapy. Advised to work with therapy in order to avoid long-term care placement. Afebrile. Pain stable. Says he wants to rest. No shortness of breath or chest pain. Given his wounds discussed with family rehab placement name multiple SNF and he did not meet criteria for LTACH earlier. Encouraged to continue working with therapy 06/07 Patient evaluated examined at bedside. Informed him the importance of working with therapy today. D wound still quite notable wound care following still. Patient will need placement, will try to discuss this with patient's niece today I am able to get a hold of her. No need for antibiotics. Continuing current plan, vascular surgery following 06/08 Patient evaluated and examined at bedside. When I entered the room patient was talking at the wall with nobody else in the room. Contacted patient's niece earlier today and she said family would like home with home health. Believe they can manage this with him and his wound care. They are hoping to get their home set up today for plan for discharge tomorrow. Plan of care discussed with bedside RN 06/09 Patient evaluated examined at bedside. No major overnight changes. Discharging home with home health today. Aldactone and diltiazem accidentally discontinued on home meds. Patient can continue these as directed by his primary care physician I spent greater than 30 minutes coordinating planning and [id number] with this patient regards to discharge. Disposition: Disposition/Orders: D/C to Home w/ HH Activity: Activity: Resume previous activity Diet: Diet: Cardiac Medications: Home Meds Active Scripts Clopidogrel Bisulfate (CLOPIDOGREL) 75 Mg Tablet, 75 MG PO DAILYWBKFT for cad for 30 Days, #30 TAB Prov:KATE KIMBLE MD 06/09/21 Methocarbamol (METHOCARBAMOL) 500 Mg Tablet, 500 MG PO PRN Q8HRS PRN for BACK PAIN or MUSCLE SPASMS for 30 Days, #30 TAB Prov:KATE KIMBLE MD 06/09/21 Megestrol Acetate (MEGESTROL ACETATE) 400 Mg/10 Ml Oral.susp, 400 MG PO BID for for appetite for 30 Days, #60 MISC Prov:KATE KIMBLE MD 06/09/21 Reported Medications Pantoprazole Sodium (PANTOPRAZOLE SODIUM ) 40 Mg Tablet.dr, 40 MG PO DAILYAC for GERD, TAB 05/26/21 Levetiracetam (LEVETIRACETAM) 750 Mg Tab.er.24h, 750 MG PO DAILY for seizures, TAB.SR 05/26/21 Hydralazine Hcl (HYDRALAZINE HCL) 25 Mg Tablet, 25 MG PO DAILY for HTN, TAB 05/26/21 Apixaban (ELIQUIS) 2.5 Mg Tablet, 2.5 MG PO BID for cholesterol, TAB 05/26/21 Losartan Potassium (LOSARTAN POTASSIUM) 100 Mg Tablet, 100 MG PO DAILY, TAB 09/05/15 Timolol (BETIMOL) 5 Ml Drops, 5 ML OP BID LAST DOSE: 09/02/15 AM NEXT DOSE: 09/02/15 PM 09/01/15 Nitroglycerin (NITROGLYCERIN SubLingual) 0.4 Mg Tab.subl, 1 TAB SL UD, #25 TAB 3 Refills 09/01/15 Latanoprost (LATANOPROST) 2.5 Ml Drops, 1 DROP EACHEYE QHS, #7.5 ML 3 Refills LAST DOSE: 09/01/15 BEDTIME NEXT DOSE: 09/02/15 BEDTIME 09/01/15 Fesoterodine Fumarate (TOVIAZ) 4 Mg Tab.er.24h, 1 TAB PO DAILY, #30 TAB 11 Refills NEXT DOSE: 09/03/15 AM 09/01/15 Doxazosin Mesylate (CARDURA) 4 Mg Tablet, 1 TAB PO HS, #30 TAB 5 Refills LAST DOSE: 09/01/15 BEDTIME NEXT DOSE: 09/02/15 BEDTIME 09/01/15 Carvedilol (COREG) 25 Mg Tablet, 1 TAB PO BID, #60 TAB 5 Refills LAST DOSE: 09/02/15 AM NEXT DOSE: 09/02/15 PM 09/01/15 Brimonidine Tartrate (ALPHAGAN P) 5 Ml Drops, 1 DROP EACHEYE BID, #15 ML 3 Ref ills LAST DOSE: 09/02/15 AM NEXT DOSE: 09/02/15 PM 09/01/15 Atorvastatin Calcium (ATORVASTATIN CALCIUM) 20 Mg Tablet, 20 MG PO HS for FOR CHOLESTEROL, #30 TAB 0 Refills LAST DOSE: 09/01/15 BEDTIME NEXT DOSE: 09/02/15 BEDTIME 09/01/15 Aspirin (ASPIR 81) 81 Mg Tablet.dr, 1 TAB PO DAILY, #30 TAB 5 Refills LAST DOSE: 09/02/15 AM NEXT DOSE: 09/03/15 AM 09/01/15 Amiodarone Hcl (AMIODARONE HCL) 200 Mg Tablet, 100 TAB PO DAILY, #90 TAB 1 Refill LAST DOSE: 09/02/15 AM NEXT DOSE: 09/03/15 AM 09/01/15 Acetaminophen (ACETAMINOPHEN) 500 Mg Tablet, 2 TAB PO BID, #60 TAB 1 Refill LAST DOSE: 09/02/15 AM NEXT DOSE: 09/02/15 PM 09/01/15 Discontinued Reported Medications Spironolactone (SPIRONOLACTONE) 25 Mg Tablet, 25 MG PO DAILY for edema, TAB 05/26/21 Diltiazem Hcl (DILTIAZEM 24HR CD) 180 Mg Cap.er.24h, 180 MG PO DAILY, CAP.SR 09/05/15 Potassium Chloride (POTASSIUM CHLORIDE) 20 Meq Tab.er.prt, 2 TAB PO DAILYWBKFT, #180 TAB 3 Refills LAST DOSE: 09/02/15 BREAKFAST NEXT DOSE: 09/03/15 BREAKFAST 09/01/15 Furosemide (LASIX) 40 Mg Tablet, 1 TAB PO DAILY, #90 TAB 1 Refill LAST DOSE: 09/02/15 AM NEXT DOSE: 09/03/15 AM 09/01/15 Esomeprazole Magnesium (NEXIUM CAPSULE) 40 Mg Capsule.dr, 1 CAP PO DAILY, #30 CAP 5 Refills LAST DOSE: 09/02/15 AM NEXT DOSE: 09/03/15 AM 09/01/15 Scheduled Acetaminophen (Acetaminophen), 2 TAB PO BID, (Reported) Amiodarone Hcl (Amiodarone Hcl), 100 TAB PO DAILY, (Reported) Apixaban (Eliquis), 2.5 MG PO BID, (Reported) Aspirin (Aspir 81), 1 TAB PO DAILY, (Reported) Atorvastatin Calcium (Atorvastatin Calcium), 20 MG PO HS, (Reported) Brimonidine Tartrate (Alphagan P), 1 DROP EACHEYE BID, (Reported) Carvedilol (Coreg), 1 TAB PO BID, (Reported) Clopidogrel Bisulfate (Clopidogrel), 75 MG PO DAILYWBKFT Doxazosin Mesylate (Cardura), 1 TAB PO HS, (Reported) Fesoterodine Fumarate (Toviaz), 1 TAB PO DAILY, (Reported) Hydralazine Hcl (Hydralazine Hcl), 25 MG PO DAILY, (Reported) Latanoprost (Latanoprost), 1 DROP EACHEYE QHS, (Reported) Levetiracetam (Levetiracetam), 750 MG PO DAILY, (Reported) Losartan Potassium (Losartan Potassium), 100 MG PO DAILY, (Reported) Megestrol Acetate (Megestrol Acetate), 400 MG PO BID Nitroglycerin (NITROGLYCERIN SubLingual), 1 TAB SL UD, (Reported) Pantoprazole Sodium (Pantoprazole Sodium ), 40 MG PO DAILYAC, (Reported) Timolol (Betimol), 5 ML OP BID, (Reported) Scheduled PRN Methocarbamol (Methocarbamol), 500 MG PO PRN Q8HRS PRN for BACK PAIN or MUSCLE SPASMS Discontinued Medications Diltiazem Hcl (Diltiazem 24HR Cd), 180 MG PO DAILY, (Reported) Esomeprazole Magnesium (Nexium Capsule), 1 CAP PO DAILY, (Reported) Furosemide (Lasix), 1 TAB PO DAILY, (Reported) Potassium Chloride (Potassium Chloride), 2 TAB PO DAILYWBKFT, (Reported) Spironolactone (Spironolactone), 25 MG PO DAILY, (Reported) Justicifation of Admission Dx: Justifications for Admission: Justification of Admission Dx: Yes KATE KIMBLE MD Jun 09, 2021 08:16
--- NOTE | 2021-06-09 09:06 | PDOC ---
PROGRESS NOTES Date of Service DATE: 06/09/21 TIME: 09:03 Subjective Subjective No new problems. Objective Objective Vital Signs Date Time Temp Pulse Resp B/P (MAP) Pulse Ox O2 Delivery O2 Flow Rate FiO2 06/09/21 03:00 98.6 70 18 134/60 (84) 96 Room Air 98.6 06/08/21 08:06 2.0 Intake and Output 06/09/21 07:00 Intake Total 480 ml Output Total 100 ml Balance 380 ml Intake Oral 480 ml Output Urine Total 100 ml # Voids 5 # Bowel Movements 2 Physical Exam Physical Exam He is resting in bed and supine and no vascular boots of PRAFO boots in place. Plan Plan of Care Hope he receives PRAFO boot to left foot to keep pressure off left heel wound and his grandson receives wound care training before discharge. Comment Review of Relevant I have reviewed the following items shelby (where applicable) has been applied. Labs Laboratory Tests Test 06/07/21 11:39 06/07/21 16:40 06/08/21 07:58 06/08/21 12:10 Glucose (Fingerstick) 102 mg/dL (70-99) 89 mg/dL (70-99) 94 mg/dL (70-99) 142 mg/dL (70-99) Test 06/08/21 16:49 06/08/21 21:20 06/09/21 08:18 Glucose (Fingerstick) 112 mg/dL (70-99) 124 mg/dL (70-99) 84 mg/dL (70-99) Laboratory Tests Test 06/08/21 12:10 06/08/21 16:49 06/08/21 21:20 06/09/21 08:18 Glucose (Fingerstick) 142 mg/dL (70-99) 112 mg/dL (70-99) 124 mg/dL (70-99) 84 mg/dL (70-99) Medications Current Medications Amiodarone HCl (Cordarone) 200 mg DAILY PO Last administered on 06/08/21at 09:09; Start 05/26/21 at 13:00 Apixaban (Eliquis) 2.5 mg BID PO Last administered on 05/28/21at 22:49; Start 05/26/21 at 21:00; Stop 05/29/21 at 10:34; Status DC Aspirin (Ecotrin) 81 mg DAILY PO Last administered on 06/08/21at 09:06; Start 05/26/21 at 13:00 Atorvastatin Calcium (Lipitor) 20 mg HS PO Last administered on 06/08/21at 20:04; Start 05/26/21 at 21:00 Latanoprost (Xalatan) 1 drop QHS OU Last administered on 06/08/21at 20:07; Start 05/26/21 at 21:00 Pantoprazole Sodium (Protonix) 40 mg DAILYAC PO Last administered on 06/09/21at 05:52; Start 05/26/21 at 16:30 Brimonidine Tartrate (Alphagan) 1 drop BID OU Last administered on 06/08/21 20:07; Start 05/26/21 at 21:00 Carvedilol (Coreg) 25 mg BIDWMEALS PO Last administered on 06/08/21at 17:45; Start 05/26/21 at 17:00 Levetiracetam (Keppra Oral Soln) 375 mg BID PO Last administered on 06/08/21at 20:04; Start 05/26/21 at 21:00 Timolol Maleate (Timoptic 0.5% [facility]) 1 drop BID OD Last administered on 06/08/21at 20:07; Start 05/26/21 at 21:00 Sennosides (Senna) 17.2 mg PRN BID PRN PO CONSTIPATION; Start 05/26/21 at 12:30 Docusate Sodium (Colace) 100 mg PRN DAILY PRN PO HARD STOOLS; Start 05/26/21 at 12:30 Ondansetron HCl (Zofran) 4 mg PRN Q6HRS PRN IVP NAUSEA/VOMITING; Start 05/26/21 at 12:30 Insulin Human Lispro (HumaLOG) 0-7 UNITS TIDWMEALS SQ ; Start 05/26/21 at 17:00; Stop 05/28/21 at 08:22; Status DC Dextrose (Dextrose 50%-Water Syringe) 12.5 gm PRN Q15MIN PRN IV SEE COMMENTS; Start 05/26/21 at 12:30 Acetaminophen (Tylenol) 650 mg PRN Q4HRS PRN PO TEMP OVER 100.4F OR MILD PAIN Last administered on 06/07/21at 21:38; Start 05/26/21 at 12:30 Lorazepam (Ativan) 0.5 mg PRN Q6HRS PRN PO ANXIETY / AGITATION Last administered on 06/08/21at 20:03; Start 05/26/21 at 12:30 Lorazepam (Ativan Inj) 0.25 mg PRN Q4HRS PRN IV ANXIETY / AGITATION; Start 05/26/21 at 12:30 Oxycodone/ Acetaminophen (Percocet 5/325) 1 tab PRN Q4HRS PRN PO MILD PAIN, 1ST CHOICE; Start 05/26/21 at 12:30; Stop 05/26/21 at 12:41; Status DC Prochlorperazine Edisylate (Compazine) 10 mg PRN Q6HRS PRN IV NAUSEA/VOMITING- 2nd choice; Start 05/26/21 at 12:30 Zolpidem Tartrate (Ambien) 2.5 mg PRN QHS PRN PO INSOMNIA; Start 05/26/21 at 12:30 Methocarbamol (Robaxin) 500 mg PRN Q8HRS PRN PO BACK PAIN or MUSCLE SPASMS Last administered on 06/08/21at 20:04; Start 05/28/21 at 15:00 Diclofenac Sodium (Voltaren) 1 ema BID TP Last administered on 06/08/21at 20:06; Start 05/29/21 at 12:00 Multi-Ingredient Ointment (Hydrocerin, Eucerin Cream) 1 ema PRN Q1HR PRN TP DRY SKIN / SCALING Last administered on 05/29/21at 23:15; Start 05/29/21 at 11:15 Megestrol Acetate (Megace) 400 mg BID PO Last administered on 06/08/21at 20:03; Start 05/29/21 at 12:00 Methylprednisolone Acetate (DEPO-Medrol 40MG VIAL) 40 mg 1X ONCE IM ; Start 05/29/21 at 12:00; Stop 05/29/21 at 12:01; Status DC Methylprednisolone Acetate (DEPO-Medrol 40MG VIAL) 40 mg 1X ONCE INJ ; Start 05/29/21 at 12:00; Stop 05/29/21 at 12:01; Status DC Bupivacaine HCl (Sensorcaine-Mpf 0.25%) 10 ml 1X ONCE IJ ; Start 05/29/21 at 12:00; Stop 05/29/21 at 12:01; Status DC Iodixanol (Visipaque 320) 100 ml STK-MED ONCE .ROUTE ; Start 05/31/21 at 12:29; Stop 05/31/21 at 12:29; Status DC Lidocaine HCl (Lidocaine 1% 20ml Vial) 20 ml STK-MED ONCE .ROUTE ; Start 05/31/21 at 12:29; Stop 05/31/21 at 12:29; Status DC Heparin Sodium/ Sodium Chloride 500 ml @ As Directed STK-MED ONCE .ROUTE ; Start 05/31/21 at 12:29; Stop 05/31/21 at 12:29; Status DC Midazolam HCl (Versed) 2 mg 1X ONCE IV Last administered on 05/31/21at 15:53; Start 05/31/21 at 12:45; Stop 05/31/21 at 12:46; Status DC Fentanyl Citrate (Fentanyl 2ml Vial) 100 mcg 1X ONCE IV Last administered on 05/31/21at 15:54; Start 05/31/21 at 12:45; Stop 05/31/21 at 12:46; Status DC Iodixanol (Visipaque 320) 100 ml 1X ONCE IART Last administered on 05/31/21at 15:53; Start 05/31/21 at 12:45; Stop 05/31/21 at 12:46; Status DC Lidocaine HCl (Lidocaine 1% 20ml Vial) 20 ml 1X ONCE INJ Last administered on 05/31/21at 15:53; Start 05/31/21 at 12:45; Stop 05/31/21 at 12:46; Status DC Heparin Sodium (Porcine) (Heparin Sodium) 10,000 unit STK-MED ONCE .ROUTE ; Start 05/31/21 at 12:36; Stop 05/31/21 at 12:36; Status DC Info (CONTRAST GIVEN -- Rx MONITORING) 1 each PRN DAILY PRN MC SEE COMMENTS; Start 05/31/21 at 12:45; Stop 06/02/21 at 12:44; Status DC Heparin Sodium (Porcine) (Heparin Sodium) 10,000 unit STK-MED ONCE .ROUTE ; Start 05/31/21 at 13:54; Stop 05/31/21 at 13:54; Status DC Nitroglycerin (Nitroglycerin) 4 mg STK-MED ONCE .ROUTE ; Start 05/31/21 at 13:56; Stop 05/31/21 at 13:57; Status DC Diltiazem HCl (Cardizem Iv Push) 25 mg STK-MED ONCE .ROUTE ; Start 05/31/21 at 13:56; Stop 05/31/21 at 13:57; Status DC Heparin Sodium/ Sodium Chloride 500 ml @ As Directed STK-MED ONCE .ROUTE ; Start 05/31/21 at 14:27; Stop 05/31/21 at 14:27; Status DC Iodixanol (Visipaque 320) 100 ml STK-MED ONCE .ROUTE ; Start 05/31/21 at 15:18; Stop 05/31/21 at 15:19; Status DC Heparin Sodium (Porcine) (Heparin Sodium) 9,000 unit 1X ONCE IV Last administered on 05/31/21at 15:56; Start 05/31/21 at 15:30; Stop 05/31/21 at 15:31; Status DC Diltiazem HCl 10 mg/Nitroglycerin 4 mg/Heparin Sodium (Porcine) 12490 unit/ Miscellaneous 20 ml/Sodium Chloride 1,052 ml @ 1,000 mls/hr 1X ONCE INT CAT Last administered on 05/31/21at 15:30; Start 05/31/21 at 15:30; Stop 05/31/21 at 16:33; Status DC Clopidogrel Bisulfate (Plavix) 300 mg 1X ONCE PO Last administered on 05/31/21at 16:00; Start 05/31/21 at 16:00; Stop 05/31/21 at 16:01; Status DC Clopidogrel Bisulfate (Plavix) 75 mg STK-MED ONCE .ROUTE ; Start 05/31/21 at 15:56; Stop 05/31/21 at 15:56; Status DC Sodium Chloride 1,000 ml @ 75 mls/hr [id number] IV Last administered on 06/03/21at 10:55; Start 05/31/21 at 16:15; Stop 06/04/21 at 12:46; Status DC Clopidogrel Bisulfate (Plavix) 75 mg DAILYWBKFT PO Last administered on 06/08/21at 09:09; Start 06/01/21 at 08:00 Apixaban (Eliquis) 5 mg BID PO Last administered on 06/08/21at 20:06; Start 06/01/21 at 09:00 Nitroglycerin (Nitroglycerin) 4 mg STK-MED ONCE .ROUTE ; Start 05/31/21 at 14:00; Stop 06/02/21 at 08:51; Status DC Potassium Chloride (Klor-Con) 40 meq 1X ONCE PO Last administered on 06/02/21at 13:05; Start 06/02/21 at 11:00; Stop 06/02/21 at 11:01; Status DC Info (Anti-Coagulation Monitoring By Pharmacy) 1 each PRN DAILY PRN MC PER PROTOCOL Last administered on 06/06/21at 15:42; Start 06/02/21 at 13:45 Clopidogrel Bisulfate (Plavix) 300 mg 1X ONCE PO Last administered on 05/31/21at 16:00; Start 06/07/21 at 13:45; Stop 06/07/21 at 13:48; Status DC Active Scripts Active Clopidogrel (Clopidogrel Bisulfate) 75 Mg Tablet 75 Mg PO DAILYWBKFT 30 Days Methocarbamol 500 Mg Tablet 500 Mg PO PRN Q8HRS PRN 30 Days Megestrol Acetate 400 Mg/10 Ml Oral.susp 400 Mg PO BID 30 Days Reported Pantoprazole Sodium (Pantoprazole Sodium) 40 Mg Tablet.dr 40 Mg PO DAILYAC Levetiracetam 750 Mg Tab.er.24h 750 Mg PO DAILY Hydralazine Hcl 25 Mg Tablet 25 Mg PO DAILY Eliquis (Apixaban) 2.5 Mg Tablet 2.5 Mg PO BID Losartan Potassium 100 Mg Tablet 100 Mg PO DAILY Betimol (Timolol) 5 Ml Drops 5 Ml OP BID LAST DOSE: 09/02/15 AM NEXT DOSE: 09/02/15 PM NITROGLYCERIN SubLingual (Nitroglycerin) 0.4 Mg Tab.subl 1 Tab SL UD Latanoprost 2.5 Ml Drops 1 Drop EACHEYE QHS LAST DOSE: 09/01/15 BEDTIME NEXT DOSE: 09/02/15 BEDTIME Toviaz (Fesoterodine Fumarate) 4 Mg Tab.er.24h 1 Tab PO DAILY NEXT DOSE: 09/03/15 AM Cardura (Doxazosin Mesylate) 4 Mg Tablet 1 Tab PO HS LAST DOSE: 09/01/15 BEDTIME NEXT DOSE: 09/02/15 BEDTIME Coreg (Carvedilol) 25 Mg Tablet 1 Tab PO BID LAST DOSE: 09/02/15 AM NEXT DOSE: 09/02/15 PM Alphagan P (Brimonidine Tartrate) 5 Ml Drops 1 Drop EACHEYE BID LAST DOSE: 09/02/15 AM NEXT DOSE: 09/02/15 PM Atorvastatin Calcium 20 Mg Tablet 20 Mg PO HS LAST DOSE: 09/01/15 BEDTIME NEXT DOSE: 09/02/15 BEDTIME Aspir 81 (Aspirin) 81 Mg Tablet. 1 Tab PO DAILY LAST DOSE: 09/02/15 NEXT DOSE: 09/03/15 AM Amiodarone Hcl 200 Mg Tablet 100 Tab PO DAILY LAST DOSE: 09/02/15 AM NEXT DOSE: 09/03/15 AM Acetaminophen 500 Mg Tablet 2 Tab PO BID LAST DOSE: 09/02/15 NEXT DOSE: 09/02/15 PM Vitals/I & O Vital Sign - Last 24 Hours 06/08/21 06/08/21 06/08/21 06/08/21 09:08 09:09 11:00 15:00 Temp 98.3 98.3 98.3 98.3 Pulse 69 69 70 69 Resp 18 18 B/P (MAP) 122/52 122/52 123/54 (77) 133/62 (85) Pulse Ox 96 97 O2 Delivery Room Air Room Air 06/08/21 06/08/21 06/08/21 06/08/21 17:45 19:00 20:00 22:35 Temp 98.4 98.5 98.4 98.5 Pulse 69 73 68 Resp 18 18 B/P (MAP) 133/62 137/65 (89) 131/64 (86) Pulse Ox 97 96 O2 Delivery Room Air Room Air Room Air 06/09/21 03:00 Temp 98.6 98.6 Pulse 70 Resp 18 B/P (MAP) 134/60 (84) Pulse Ox 96 O2 Delivery Room Air Intake and Output 06/08/21 06/08/21 06/09/21 15:00 23:00 07:00 Intake Total 240 ml 240 ml Output Total 100 ml Balance 140 ml 240 ml Justifications for Admission Other Justification Debilitation adn generalized weakness Nutrition Consultation Dietary Evaluation: Recommendations by RD: Dietary education by RD, Increase Calorie Intake, Protein supplementation Comments: Cardiac diet with ensure enlive oral nutrition supplements REC mvi and vit c per wound protocal- mushy heels per RN Man Expected Outcomes/Goals: improved po intake prevent skin breakdown and wt loss Malnutrition Findings: Food and Nutrition Intake (Sev: <50% est energy req 5days Body Fat Depletion (Non Severe: Mod to Severe Weight Status: Appropriate DAVID SAUNDERS MD Jun 09, 2021 09:05
[2021-06-09] MEDS: DICLOFENAC SODIUM 1% TOPICAL GEL 100GM TUBE. TP SCH (09:58)
[2021-06-09] MEDS: levETIRAcetam 500 MG/5 ML ORAL SOLUTION. PO SCH (09:58)
[2021-06-09] MEDS: APIXABAN 5 MG TABLET. PO SCH (09:59)
[2021-06-09] MEDS: MEGESTROL 400 MG/10 ML ORAL.SUSP. PO SCH (09:59)
[2021-06-09] MEDS: CARVEDILOL 12.5 MG TABLET. PO SCH (09:59)
[2021-06-09] MEDS: ASPIRIN ENTERIC COATED 81 MG TABLET.DR. PO SCH (09:59)
[2021-06-09] MEDS: TIMOLOL 0.5% OPHTH SOLUTION 5ML BOTTLE. OD SCH (10:00)
[2021-06-09] MEDS: BRIMONIDINE 0.2% OPHTH SOLUTION 5ML BOTTLE. OU SCH (10:00)
[2021-06-09] MEDS: AMIODARONE HCL 200 MG TABLET. PO SCH (10:00)
[2021-06-09] MEDS: CLOPIDOGREL BISULFATE 75 MG TABLET PO SCH (10:05)
--- NOTE | 2021-06-09 10:42 | NUR ---
SS following up with discharge planning. SS reviewed pt chart and discussed with pt RN. Pt is currently on room air. COVID19 negative. Discharge orders received for home with home healthcare. Pt accepted on services with [facility], ; fax [phone]. Discharge orders phoned and faxed to [facility]. Pt's niece, Lucian, , notified. Pt's family requesting stretcher transport to home. Pt will discharge to home with [facility] between 1230 and 1300 via [facility], . Pt, pt's RN, and pt's niece notified.
[2021-06-09 11:00] VITALS: BP 139/82
--- NOTE | 2021-06-09 15:38 | NUR ---
patient discharged home via [facility]. discharge paperwork including meds, wound care, and follow up info sent with patient. patient had no IV at time of discharge. wounds photographed and dressings changed. dentures and wheelchair sent with patient.
== END 2021-06-09 12:30 | disposition home health service (06) | DRG 270 ==
LOC: 5 NORTH 21:48 → 5 SOUTH 05-31 08:40
PROVIDERS: ADMIT Internal Medicine; ATTEND Internal Medicine
PROC: B41D1ZZ Fluoroscopy of Aorta and Bilateral Lower Extremity Arteries using Low Osmolar Contrast (ICD-10-PCS; principal; 2021-05-31)
PROC: 04CL3ZZ Extirpation of Matter from Left Femoral Artery, Percutaneous Approach (ICD-10-PCS; 2021-05-31)
PROC: 047L3Z1 Dilation of Left Femoral Artery using Drug-Coated Balloon, Percutaneous Approach (ICD-10-PCS; 2021-05-31)
DX: I70.202 Unspecified atherosclerosis of native arteries of extremities, left leg (principal); E43 Unspecified severe protein-calorie malnutrition; L97.419 Non-pressure chronic ulcer of right heel and midfoot with unspecified severity; D64.9 Anemia, unspecified; B35.1 Tinea unguium; D63.8 Anemia in other chronic diseases classified elsewhere; F03.90 Unspecified dementia, unspecified severity, without behavioral disturbance, psychotic disturbance, mood disturbance, and anxiety; G62.9 Polyneuropathy, unspecified; I11.0 Hypertensive heart disease with heart failure; I25.10 Atherosclerotic heart disease of native coronary artery without angina pectoris; I35.0 Nonrheumatic aortic (valve) stenosis; I48.91 Unspecified atrial fibrillation; I50.9 Heart failure, unspecified; K21.9 Gastro-esophageal reflux disease without esophagitis; L60.1 Onycholysis; L60.2 Onychogryphosis; L89.519 Pressure ulcer of right ankle, unspecified stage; L89.629 Pressure ulcer of left heel, unspecified stage; L97.509 Non-pressure chronic ulcer of other part of unspecified foot with unspecified severity; M11.20 Other chondrocalcinosis, unspecified site; M16.0 Bilateral primary osteoarthritis of hip; M17.0 Bilateral primary osteoarthritis of knee; M19.011 Primary osteoarthritis, right shoulder; M19.012 Primary osteoarthritis, left shoulder; M51.36 Other intervertebral disc degeneration, lumbar region; N28.9 Disorder of kidney and ureter, unspecified; R62.7 Adult failure to thrive; Z51.5 Encounter for palliative care; S91.202A Unspecified open wound of left great toe with damage to nail, initial encounter; Z79.01 Long term (current) use of anticoagulants; Z79.02 Long term (current) use of antithrombotics/antiplatelets; Z79.82 Long term (current) use of aspirin; Z82.5 Family history of asthma and other chronic lower respiratory diseases; Z88.5 Allergy status to narcotic agent; Z95.810 Presence of automatic (implantable) cardiac defibrillator; Z88.8 Allergy status to other drugs, medicaments and biological substances; L89.150 Pressure ulcer of sacral region, unstageable
CPT/HCPCS: 37225; G0269; 36415; 72100; 73521; 75625; 75710; 76937; 80048; 80053; 81001; 82607; 82962; 83735; 84100; 84484; 85007; 85025; 85347; 85610; 87426; 93925; 99152; 99153; C1760; C1769; C1894; C2623; J1644; J1815; J2250; J3010; J3490; J7030; Q9967; 73560-50; 97110-GO; 97530-GP; G0378